=== PATIENT | male | born 1950 | race Caucasian/White ===

== ENCOUNTER 2017-05-02 11:44 | Outpatient (RCR) | payer OTHER, SELFPAY ==
[2017-04-10 13:06] LABS: International Normalized Ratio 1.9
[2017-04-10 13:31] LABS: Anion Gap 6 (5-15); BUN 25 mg/dL (7-18); BUN/Creat Ratio 17.4 RATIO (10-20); Chloride 109 mmol/L (98-107); Creatinine, Serum 1.44 mg/dL (0.70-1.30); EST Glomerular Filtration Rate 52 mL/min (>60); Est Glom Filt Rate - Afr Amer 63 mL/min (>60); Glucose 139 mg/dL (70-110); Potassium 4.9 mmol/L (3.5-5.1); Sodium Level 140 mmol/L (136-145)
[2017-05-02 12:14] LABS: International Normalized Ratio 1.6; Prothrombin Time (Protime)PT. 18.5 SECONDS (11.7-14.9)
== END 2017-05-02 12:00 | disposition home or self-care (01) ==
LOC: LAB 11:44
PROVIDERS: Family Provider Internal Medicine; PCP Internal Medicine; Visit Provider Internal Medicine Cardiovascular Disease
DX: I49.01 Ventricular fibrillation (principal); E87.6 Hypokalemia; Z98.61 Coronary angioplasty status; Z79.899 Other long term (current) drug therapy
CPT/HCPCS: 36415; 80048; 84132; 85610

== ENCOUNTER 2017-05-16 12:14 | Outpatient (RCR) | payer OTHER, SELFPAY ==
[2017-05-16 13:14] LABS: International Normalized Ratio 2.3; Prothrombin Time (Protime)PT. 24.2 SECONDS (11.7-14.9)
== END 2017-05-16 12:45 | disposition home or self-care (01) ==
LOC: LAB 12:14
PROVIDERS: Family Provider Internal Medicine; PCP Internal Medicine; Visit Provider Internal Medicine Cardiovascular Disease
DX: I49.01 Ventricular fibrillation (principal); Z51.81 Encounter for therapeutic drug level monitoring; Z79.899 Other long term (current) drug therapy; Z98.61 Coronary angioplasty status
CPT/HCPCS: 36415; 85610

== ENCOUNTER → 2017-06-27 15:31 | Outpatient (CLI) | payer OTHER, SELFPAY ==
[2017-06-27 15:51] LABS: Potassium 5.8 mmol/L (3.5-5.1)
== END ==
PROVIDERS: Family Provider Internal Medicine; PCP Internal Medicine; Visit Provider Internal Medicine
DX: E87.5 Hyperkalemia (principal)
CPT/HCPCS: 84132

== ENCOUNTER 2017-06-30 13:33 | Outpatient (RCR) | payer OTHER, SELFPAY ==
[2017-06-30 15:08] LABS: International Normalized Ratio 2.3; Prothrombin Time (Protime)PT. 25.5 SECONDS (11.7-14.9)
[2017-06-30 15:23] LABS: Potassium 5.2 mmol/L (3.5-5.1)
== END 2017-06-30 14:00 | disposition home or self-care (01) ==
LOC: LAB 13:33
PROVIDERS: Family Provider Internal Medicine; PCP Internal Medicine; Visit Provider Internal Medicine Cardiovascular Disease
DX: I49.01 Ventricular fibrillation (principal); Z51.81 Encounter for therapeutic drug level monitoring; Z79.899 Other long term (current) drug therapy; Z98.61 Coronary angioplasty status; E87.5 Hyperkalemia
CPT/HCPCS: 36415; 84132; 85610

== ENCOUNTER → 2017-07-03 13:40 | Outpatient (CLI) | payer OTHER, SELFPAY ==
[2017-07-03 15:41] LABS: Potassium 5.1 mmol/L (3.5-5.1)
== END ==
PROVIDERS: Family Provider Internal Medicine; PCP Internal Medicine; Visit Provider Internal Medicine
DX: E87.5 Hyperkalemia (principal)
CPT/HCPCS: 36415; 84132

== ENCOUNTER → 2017-07-25 08:26 | Outpatient (CLI) | payer OTHER, SELFPAY ==
--- NOTE | 2017-07-25 08:28 | RDU_ITS ---
Reason For Study: Hyperkalemia Right Renal Artery Left Renal Artery Right renal artery ostium Left renal artery ostium 90.3/16.4 127.0/21.9 RSV/EDV. PSV/EDV. Right renal artery proximal Left renal artery proximal PSV/EDV 134.0/31.0 PSV/EDV. 109.0/25.5 . Right renal artery mid 141.0/27.4 Left renal artery mid 97.6/21.0 PSV/EDV. PSV/EDV . Right renal artery distal 89.4/21.0 Left renal artery distal 115.0/22.8 PSV/EDV. PSV/EDV. Right RAR 1.9. Left RAR 1.5. Right Renal Parenchyma Left Renal Parenchyma Upper Pole Medula 31.8/7.6 PSV/EDV. Left upper pole medulla 29.3/6.7 Right upper pole medulla EDR .24 . PSV/EDV . Right upper pole medulla R.I. .76 . Left upper pole medulla EDR .23 . Upper Benjamin Cortx 29.0/7.3 PSV/EDV. Left upper pole medulla R.I. .77 . Right upper pole cortex EDR .25 . UP Cortex 28.4/7.0 PSV/EDV. Right upper pole cortex R.I. .75 . Left upper pole cortex EDR .25 . Right lower Pole medulla 25.7/5.2 Left upper pole cortex R.I. .75 . PSV/EDV . Left lower Pole medulla 27.5/7.0 Right lower pole medulla EDR .20 . PSV/EDV . Right lower pole medulla R.I. .80 . Left lower pole medulla EDR .25 . Lower Pole Cortex 21.1/5.8 PSV/EDV. Left lower pole medulla R.I. .74 . Right lower pole cortex EDR .27 . Lower Pole Cortx 24.4/6.7 PSV/EDV. Right lower pole cortex R.I. .72 . Left lower pole cortex EDR .27 . Right Renal Hilar Left lower pole cortex R.I. .72 . Right Hilar avg 42.2/7.6 PSV/EDV. Left Renal Hilar Right hilar acceleration time 59 LT Hilar avg 60.2/13.2 PSV/EDV . m/sec. Left hilar acceleration time 51 Right Renal Dimensions m/sec. Right kidney size 10.2 cm . Left Renal Dimensions Right cortical dimension 1.5 cm . Left kidney size 10.3 cm . Left cortical dimension 1.5 cm . Aorta Proximal abdominal aorta 1.9 x 1.9 cm . Distal abdominal aorta 1.9 x 1.9 cm . Proximal abdominal aorta peak systolic velocity is 74.8 cm/sec . Distal abdominal aorta peak systolic velocity is 70.2 cm/sec . Interpretation Summary Dimensions of the intra-abdominal aorta appear normal, without evidence of aneurysmal dilatation. Renal artery velocities are bilaterally normal. Acceleration times are normal bilaterally. Renal- aortic ratios are also bilaterally normal. There is no evidence of hemodynamically significant renal artery stenosis on either side. Renovascular resistance appears to be bilaterally elevated . Cortical dimensions are bilaterally normal. Kidneys appear normal in size bilaterally. Ordering Physician: Sherice Campos Referring Physician: Sherice Campos Performed By: Candice Leonard RVT
== END ==
PROVIDERS: Family Provider Internal Medicine; PCP Internal Medicine; Visit Provider Internal Medicine
DX: E87.5 Hyperkalemia (principal)
CPT/HCPCS: 93975

== ENCOUNTER 2017-09-03 11:52 | Outpatient (RCR) | payer OTHER, SELFPAY ==
[2017-08-26 12:29] LABS: Prothrombin Time (Protime)PT. 35.1 SECONDS (11.7-14.9)
[2017-08-26 12:33] LABS: International Normalized Ratio 3.5
[2017-08-26 12:40] LABS: Potassium 5.8 mmol/L (3.5-5.1)
[2017-09-03 13:12] LABS: International Normalized Ratio 2.5; Prothrombin Time (Protime)PT. 26.9 SECONDS (11.7-14.9)
[2017-09-03 13:26] LABS: Anion Gap 5 (5-15); BUN 32 mg/dL (7-18); BUN/Creat Ratio 22.4 RATIO (10-20); Calcium,Total 8.6 mg/dL (8.5-10.1); Chloride 110 mmol/L (98-107); Creatinine, Serum 1.43 mg/dL (0.70-1.30); EST Glomerular Filtration Rate 53 mL/min (>60); Est Glom Filt Rate - Afr Amer 64 mL/min (>60); Glucose 106 mg/dL (74-106); Potassium 5.3 mmol/L (3.5-5.1); Sodium Level 141 mmol/L (136-145)
== END 2017-09-03 12:00 | disposition home or self-care (01) ==
LOC: LAB 11:52
PROVIDERS: Family Provider Internal Medicine; PCP Internal Medicine; Visit Provider Internal Medicine Cardiovascular Disease
DX: I25.5 Ischemic cardiomyopathy (principal); E87.5 Hyperkalemia; Z79.01 Long term (current) use of anticoagulants; Z51.81 Encounter for therapeutic drug level monitoring
CPT/HCPCS: 36415; 80048; 84132; 85610

== ENCOUNTER → 2017-09-11 12:51 | Outpatient (CLI) | payer OTHER, SELFPAY ==
--- NOTE | 2017-09-11 12:51 | DT_ITS ---
This patient was seen during an EMR downtime September 08, 2017 - September 15, 2017. This patient may have a combination of paper and electronic documentation or all paper documentation. All documentation is viewable within the e-chart portion of [employer] for each patient visit.
[2017-09-16 04:14] LABS: Anion Gap 9 (5-15); BUN 26 mg/dL (7-18); BUN/Creat Ratio 18.6 RATIO (10-20); Calcium,Total 8.4 mg/dL (8.5-10.1); Chloride 112 mmol/L (98-107); EST Glomerular Filtration Rate 54 mL/min (>60); Est Glom Filt Rate - Afr Amer 65 mL/min (>60); Glucose 98 mg/dL (74-106); Potassium 5.1 mmol/L (3.5-5.1); Sodium Level 143 mmol/L (136-145)
[2017-09-16 04:32] LABS: International Normalized Ratio 2.4; Prothrombin Time (Protime)PT. 26.1 SECONDS (11.7-14.9)
== END ==
PROVIDERS: Family Provider Internal Medicine; PCP Internal Medicine; Visit Provider Internal Medicine Cardiovascular Disease
DX: E87.5 Hyperkalemia (principal); I25.5 Ischemic cardiomyopathy; Z79.01 Long term (current) use of anticoagulants
CPT/HCPCS: 36415; 80048; 85610

== ENCOUNTER 2017-10-13 12:26 | Outpatient (RCR) | payer OTHER, SELFPAY ==
[2017-10-13 13:36] LABS: International Normalized Ratio 2.2; Prothrombin Time (Protime)PT. 24.8 SECONDS (11.7-14.9)
== END 2017-10-13 14:00 | disposition home or self-care (01) ==
LOC: LAB 12:26
PROVIDERS: Family Provider Internal Medicine; PCP Internal Medicine; Visit Provider Internal Medicine Cardiovascular Disease
DX: I25.5 Ischemic cardiomyopathy (principal); Z79.01 Long term (current) use of anticoagulants
CPT/HCPCS: 36415; 85610

== ENCOUNTER 2017-11-20 13:01 | Outpatient (RCR) | payer OTHER, SELFPAY ==
[2017-11-20 13:37] LABS: International Normalized Ratio 2.1; Prothrombin Time (Protime)PT. 23.7 SECONDS (11.7-14.9)
== END 2017-11-20 14:00 | disposition home or self-care (01) ==
LOC: LAB 13:01
PROVIDERS: Family Provider Internal Medicine; PCP Internal Medicine; Visit Provider Internal Medicine Cardiovascular Disease
DX: I25.5 Ischemic cardiomyopathy (principal); Z79.01 Long term (current) use of anticoagulants; Z86.73 Personal history of transient ischemic attack (TIA), and cerebral infarction without residual deficits
CPT/HCPCS: 36415; 85610

== ENCOUNTER 2017-12-17 11:47 | Outpatient (RCR) | payer OTHER, SELFPAY ==
[2017-12-17 13:00] LABS: International Normalized Ratio 2.2; Prothrombin Time (Protime)PT. 24.7 SECONDS (11.7-14.9)
== END 2017-12-17 13:00 | disposition home or self-care (01) ==
LOC: LAB 11:47
PROVIDERS: Family Provider Internal Medicine; PCP Internal Medicine; Visit Provider Internal Medicine Cardiovascular Disease
DX: I25.5 Ischemic cardiomyopathy (principal); Z79.01 Long term (current) use of anticoagulants; Z86.73 Personal history of transient ischemic attack (TIA), and cerebral infarction without residual deficits
CPT/HCPCS: 36415; 85610

== ENCOUNTER 2018-01-21 12:24 | Outpatient (RCR) | payer OTHER, SELFPAY ==
[2018-01-21 13:39] LABS: International Normalized Ratio 2.2; Prothrombin Time (Protime)PT. 24.7 SECONDS (11.7-14.9)
== END 2018-01-21 14:00 | disposition home or self-care (01) ==
LOC: LAB 12:24
PROVIDERS: Family Provider Internal Medicine; PCP Internal Medicine; Referring Provider Internal Medicine Cardiovascular Disease; Visit Provider Internal Medicine Cardiovascular Disease
DX: I25.5 Ischemic cardiomyopathy (principal); Z79.01 Long term (current) use of anticoagulants; Z86.73 Personal history of transient ischemic attack (TIA), and cerebral infarction without residual deficits
CPT/HCPCS: 36415; 85610

== ENCOUNTER → 2018-05-13 12:51 | Outpatient (CLI) | payer MEDICARE, SELFPAY ==
[2018-04-08 14:21] VITALS: BMI 29.1
--- NOTE | 2018-05-13 12:52 | CDU_ITS ---
Reason For Study: Dizziness Rt. Velocities/BP Lt. Velocities/BP Prox CCA 56.9/11.7 cm/sec. Prox CCA 56.6/9.82 cm/sec. Mid CCA 84.4/22.3 cm/sec. Mid CCA 58.9/12.2 cm/sec. Dist CCA 62.1/22.4 cm/sec. Dist CCA 69.9/19.6 cm/sec. Prox ICA 156/54 cm/sec. Prox ICA 100/26.4 cm/sec. Mid ICA 92.3/30.3 cm/sec. Mid ICA 192/47 cm/sec. Dist ICA 58.6/14.4 cm/sec. Dist ICA 51/17.4 cm/sec. Rt. ICA/CCA = 2.51. Lt. ICA/CCA = 3.26. Prox ECA 150/14.9 cm/sec. Prox ECA 183/15.7 cm/sec. Lt. Vert. 67.2/21.6 cm/sec. Right Extracranial There is heterogeneous, irregular atherosclerotic plaque noted in the right common carotid artery. There is heterogeneous, irregular atherosclerotic plaque noted in the right internal carotid artery. There is heterogeneous, irregular atherosclerotic plaque noted in the right external carotid artery. Retrograde flow is noted in the right vertebral artery. Left Extracranial There is heterogeneous, irregular atherosclerotic plaque noted in the left common carotid artery. There is heterogeneous, irregular atherosclerotic plaque noted in the left internal carotid artery. There is heterogeneous, irregular atherosclerotic plaque noted in the left external carotid artery. Antegrade flow is noted in the left vertebral artery. Procedure Carotid Duplex [id number]. Image #31 is Left ECA. Exam performed in department. Interpretation Summary Moderate (50-69%) stenosis right extracranial internal carotid. Moderate (50-69%) stenosis left extracranial internal carotid. Flow within the right verterbral artery is retrograde, consistent with a subclavian steal phenomenon. Flow within the left verterbral artery is antegrade. Ordering Physician: Esteban Griffin Referring Physician: Sherice Campos M.D. Performed By: Candice Leonard RVT and Student
== END ==
PROVIDERS: Family Provider Internal Medicine; PCP Internal Medicine; Referring Provider Internal Medicine Cardiovascular Disease; Visit Provider Internal Medicine Cardiovascular Disease
DX: R42 Dizziness and giddiness (principal)
CPT/HCPCS: 93880

== ENCOUNTER → 2019-09-27 15:09 | Outpatient (CLI) | payer MEDICARE, SELFPAY ==
[2019-04-29 13:43] VITALS: BMI 30.7
[2019-09-27 16:15] LABS: Potassium 5.5 mmol/L (3.5-5.1)
== END ==
PROVIDERS: PCP Internal Medicine; Referring Provider Internal Medicine; Visit Provider Internal Medicine
DX: E87.5 Hyperkalemia (principal)
CPT/HCPCS: 84132

== ENCOUNTER → 2020-04-12 15:31 | Outpatient (CLI) | payer MEDICARE, SELFPAY ==
[2020-01-27 14:32] VITALS: BMI 30.7
[2020-04-12 17:55] LABS: Potassium 4.8 mmol/L (3.5-5.1)
== END ==
PROVIDERS: PCP Internal Medicine; Referring Provider Internal Medicine; Visit Provider Internal Medicine
DX: E87.5 Hyperkalemia (principal)
CPT/HCPCS: 36415; 84132

== ENCOUNTER 2021-06-18 14:03 | Outpatient (CLI) | payer MEDICARE, SELFPAY | END 2021-06-18 23:59 | disposition home or self-care (01) | LOC: LABSPEC 14:06 | PROVIDERS: PCP Internal Medicine; Visit Provider Internal Medicine | DX: E87.5 Hyperkalemia (principal) | CPT/HCPCS: 84132 ==

== ENCOUNTER → 2022-06-11 | Outpatient (CLI) | payer MEDICARE, SELFPAY ==
[2022-06-11 14:57] LABS: International Normalized Ratio 1.7; Prothrombin Time (Protime)PT. 19.3 SECONDS (11.7-14.9)
== END | disposition home or self-care (01) ==
LOC: LABSPEC 14:23
PROVIDERS: PCP Internal Medicine; Visit Provider Internal Medicine
DX: Z79.01 Long term (current) use of anticoagulants (principal)
CPT/HCPCS: 85610

== ENCOUNTER → 2024-02-03 | Outpatient (CLI) | payer MEDICARE, SELFPAY ==
[2024-02-03 14:30] LABS: Absolute Lymphocyte Count 0.78 X10^3/uL (0.83-4.51); Absolute Neutrophil Count 3.7 X10^3/uL (2.0-7.7); Basophil# 0.05 X10^3/uL; Eosinophil# 0.11 X10^3/uL; Eosinophils% 2.1 % (0-5); Hematocrit 30.4 % (40-54); Hemoglobin 9.2 g/dL (13.0-16.5); Lymphocyte # 0.78 X10^3/ul (0.83-4.51); Lymphocyte % 15.1 % (19-41); Mean Corp Hgb Conc 30.3 g/dL (32-36); Mean Corpuscular Hgb 26.4 pg (27.0-32.0); Mean Corpuscular Volume 87.1 fL (80-94); Mean Platelet Vol. 8.6 fl (6.2-12.0); Monocyte# 0.49 X10^3/uL; Monocyte% 9.5 % (0-10); NRBC Flagged by Analyzer 0 % (0-5); Neutrophil # 3.72 X10^3/uL (2.7-7.7); Neutrophil % 71.9 % (47-70); Platelet Count 244 K/mm3 (150-450); RBC Distribution Width CV 16.5 % (11.6-14.6); RBC Distribution Width SD 52.7 fl (35.1-43.9); Red Blood Count 3.49 M/mm3 (4.6-6.2); White Blood Count 5.2 K/mm3 (4.4-11.0)
[2024-02-03 14:58] LABS: BNP,B-Type NATRIURETIC PEPTIDE 2876.3 pg/mL (0-100)
[2024-02-03 15:12] LABS: AST(SGOT) 24 U/L (15-37); Alanine Aminotransfer ALT/SGPT 32 U/L (16-61); Albumin, Serum 3.5 g/dL (3.2-5.0); Alkaline Phosphatase 99 U/L (45-117); Anion Gap 7 (5-15); BUN 23 mg/dL (7-18); BUN/Creat Ratio 16.3 RATIO (10-20); Calcium,Total 9.1 mg/dL (8.5-10.1); Chloride 109 mmol/L (98-107); Cholesterol 104 mg/dL (200); Creatinine, Serum 1.41 mg/dL (0.70-1.30); EST Glomerular Filtration Rate 53 mL/min (>60); Est Glom Filt Rate - Afr Amer 64 mL/min (>60); Globulin 3.5 g/dL (2.2-4.2); Glucose 121 mg/dL (74-106); High Density Lipoprotein 40 mg/dL; Potassium 4.7 mmol/L (3.5-5.1); Sodium Level 138 mmol/L (136-145); Triglycerides 78 mg/dL; Very Low Density Lipoprotein 16 mg/dL (5-40)
== END | disposition home or self-care (01) ==
LOC: LAB 13:55
PROVIDERS: PCP Internal Medicine; Referring Provider Nurse Practitioner Gerontology; Visit Provider Nurse Practitioner Gerontology
DX: R53.83 Other fatigue (principal); R06.09 Other forms of dyspnea; I25.10 Atherosclerotic heart disease of native coronary artery without angina pectoris
CPT/HCPCS: 36415; 80053; 80061; 83880; 84443; 85025

== ENCOUNTER → 2024-02-13 | Outpatient (CLI) | payer MEDICARE, SELFPAY ==
[2024-02-13 11:36] LABS: BNP,B-Type NATRIURETIC PEPTIDE 2926.9 pg/mL (0-100)
[2024-02-13 11:38] LABS: Anion Gap 6 (5-15); BUN 30 mg/dL (7-18); BUN/Creat Ratio 19.2 RATIO (10-20); Calcium,Total 9.2 mg/dL (8.5-10.1); Chloride 103 mmol/L (98-107); Creatinine, Serum 1.56 mg/dL (0.70-1.30); EST Glomerular Filtration Rate 47 mL/min (>60); Est Glom Filt Rate - Afr Amer 57 mL/min (>60); Glucose 137 mg/dL (74-106); Potassium 4.1 mmol/L (3.5-5.1); Sodium Level 136 mmol/L (136-145)
== END | disposition home or self-care (01) ==
PROVIDERS: PCP Internal Medicine; Referring Provider Nurse Practitioner Gerontology; Visit Provider Nurse Practitioner Gerontology
DX: I25.5 Ischemic cardiomyopathy (principal); R42 Dizziness and giddiness; I77.9 Disorder of arteries and arterioles, unspecified; R06.09 Other forms of dyspnea
CPT/HCPCS: 36415; 80048; 83880; 93880

== ENCOUNTER → 2024-02-24 | Outpatient (CLI) | payer MEDICARE, SELFPAY ==
--- NOTE | 2024-02-24 13:53 | ECHOCS_ITS ---
Version 2 Reason For Study: ISCHEMIC CARDIOMYOPATHY Procedure This was a 2D Doppler, Color Flow transthoracic echocardiogram. Contrast injection was performed. Exam performed in department. Left Ventricle Normal LV size. The estimated ejection fraction is 15 %. There is severe global hypokinesis of the left ventricle. Right Ventricle Normal RV size. ICD or pacer leads identified within the right ventricle. Normal systolic function. Atria The left atrium is mildly enlarged. The right atrium is moderately enlarged. Mitral Valve Normal mitral valve. Tricuspid Valve Normal tricuspid valve. Mild to moderate (1-2+) tricuspid valve insufficiency. Pulmonary artery systolic pressure is 50 mmHg. Aortic Valve Trisinus/trileaflet aortic valve. Pulmonic Valve Normal pulmonic valve. Great Vessels Normal aortic root. The pulmonary artery is normal size. Inferior vena cava collapse with respiration. Pericardium/Pleural No pericardial effusion. Medication 22 gauge I.V. with prn adaptor inserted into left arm. Diluted definity 3.5ml given slow IV push to enhance endocardial definition. MMode/2D Measurements & Calculations LVIDd: 5.9 cm IVSd: 1.0 cm LVOT diam: 2.0 cm LVIDs: 5.4 cm LVPWd: 1.0 cm RVDd: 4.0 cm FS: 9.3 % LVOT area: 3.3 cm2 asc Aorta Diam: 3.7 cm LAV(MOD-bp): 61.6 ml LVAd ap4: 53.6 cm2 LAV(MOD-bp) Indexed: 33.8 ml/m2 LVLd ap4: 10.1 cm LAV(MOD-sp2): 58.8 ml EDV(MOD-sp4): 243.5 ml LAV(MOD-sp4): 64.2 ml EDV(sp4-el): 240.8 ml LVAs ap4: 47.5 cm2 LVLs ap4: 9.5 cm ESV(MOD-sp4): 200.0 ml ESV(sp4-el): 200.4 ml EF(MOD-sp4): 17.8 % EF(sp4-el): 16.8 % LVAd ap2: 47.9 cm2 SV(MOD-sp4): 43.5 ml SV(MOD-sp2): 28.3 ml LVLd ap2: 9.9 cm SI(MOD-sp4): 23.8 ml/m2 SI(MOD-sp2): 15.5 ml/m2 EDV(MOD-sp2): 187.0 ml EDV(sp2-el): 196.2 ml LVAs ap2: 42.4 cm2 LVLs ap2: 9.3 cm ESV(MOD-sp2): 158.7 ml ESV(sp2-el): 163.6 ml EF(MOD-sp2): 15.1 % SV(sp4-el): 40.4 ml Ao sinus diam: 3.[address] Junction: 2.7 cm LA dimension(2D): 4.4 cm LA A4 area: 21.5 cm2 RA A4 area: 27.9 cm2 TAPSE: 1.2 cm Time Measurements MV dec time: 0.13 sec Doppler Measurements & Calculations MV E max naman: 113.7 cm/sec Lat Peak E' Naman: 11.2 cm/sec Med Peak E' Naman: 3.6 cm/sec MV A max naman: 98.3 cm/sec E/E' lat: 10.2 E/E' med: 31.6 MV E/A: 1.2 MV dec slope: 900.1 cm/sec2 Ao V2 max: 123.6 cm/sec LV V1 max: 86.5 cm/sec Ao max P.1 mmHg LV V1 max P.0 mmHg Ao V2 mean: 90.2 cm/sec LV V1 mean P.5 mmHg Ao mean P.7 mmHg LV V1 mean: 56.3 cm/sec Ao V2 VTI: 27.0 cm LV V1 VTI: 16.4 cm AV (velocity ratio): 0.61 AGUSTIN(I,D): 2.0 cm2 AGUSTIN(V,D): 2.3 cm2 SV(LVOT): 53.9 ml PA V2 max: 84.5 cm/sec TR max naman: 336.2 cm/sec TR max P.2 mmHg ECHO/Echo Complete W/ Contrast Interpretation Summary Normal LV size. The estimated ejection fraction is 15 %. There is severe global hypokinesis of the left ventricle. The left atrium is mildly enlarged. The right atrium is moderately enlarged. ICD or pacer leads identified within the right ventricle. Contrast injection was performed. Compared to previous study, the left ventricu lar systolic function has worsened.. Ordering Physician: Meme Garcia Referring Physician: Sherice Campos M.D. Performed By: Lilibeth Ortega RDCS
== END | disposition home or self-care (01) ==
LOC: CVS 13:52
PROVIDERS: PCP Internal Medicine; Referring Provider Nurse Practitioner Gerontology; Visit Provider Nurse Practitioner Gerontology
DX: I25.5 Ischemic cardiomyopathy (principal)
CPT/HCPCS: 93306; Q9957; A4216; C8929

== ENCOUNTER → 2024-03-10 | Outpatient (CLI) | payer MEDICARE, SELFPAY ==
[2024-03-10 15:10] LABS: Anion Gap 4 (5-15); BUN 33 mg/dL (7-18); BUN/Creat Ratio 17.4 RATIO (10-20); Calcium,Total 8.9 mg/dL (8.5-10.1); Chloride 105 mmol/L (98-107); EST Glomerular Filtration Rate 37 mL/min (>60); Est Glom Filt Rate - Afr Amer 45 mL/min (>60); Glucose 162 mg/dL (74-106); Potassium 4.6 mmol/L (3.5-5.1); Sodium Level 135 mmol/L (136-145)
== END | disposition home or self-care (01) ==
LOC: LAB 13:50
PROVIDERS: PCP Internal Medicine; Referring Provider Nurse Practitioner Gerontology; Visit Provider Nurse Practitioner Gerontology
DX: I25.5 Ischemic cardiomyopathy (principal)
CPT/HCPCS: 36415; 80048

== ENCOUNTER → 2024-03-19 | Outpatient (CLI) | payer MEDICARE, SELFPAY ==
--- NOTE | 2024-03-19 12:21 | CT_ITS ---
INDICATION: L ICA stenosis -- IV hydration EXAMINATION: CTA HEAD - CTA Head and Neck W/ Contrast Injection (and W/O Contrast Images if performed) TECHNIQUE: [place]/head CT angiogram protocol was performed following IV contrast. 3D reconstructions were reviewed. A radiation dose optimization technique was used for this scan. IV Contrast dosage and agent: 1 mL [id number]-370 Radiation Dose (provided by facility) CTDIvol (33.32 ) mGy, DLP ( 1449.86) mGy-cm COMPARISON: MRI examination of 06/10/2049 FINDINGS: CTA [place]: PETROUS AND CAVERNOUS CAROTID ARTERIES: Extensive vascular calcifications involving the cavernous carotid vessels bilaterally, to lesser extent the petrous carotid vessels however no stenosis occlusion or aneurysmal dilatation. No intraluminal filling defects. SUPRACLINOID CAROTID ARTERIES: Moderate calcification involving the supraclinoid carotid vessels without stenosis or occlusion. No aneurysm. No filling defects. ANTERIOR CEREBRAL AND A- COMM: Codominant A1 segments, anterior communicating artery is patent and a A2 segments are patent bilaterally. MIDDLE CEREBRAL ARTERIES: Normal appearance the proximal and distal segments of the middle cerebral circulation bilaterally. Normal appearance of the M4 cortical distribution bilaterally. INTRACRANIAL VERTEBRAL ARTERIES AND BASILAR ARTERY: There is a dominant LEFT vertebral artery. Small caliber but patent RIGHT vertebral artery and basilar artery is patent throughout its full course to the level of bifurcation POSTERIOR CEREBRAL ARTERIES: Normal appearance proximal distal segments of posterior cerebral circulation bilaterally. DURAL SINUSES: Normal, no filling defects noted CT HEAD: The cerebral parenchyma, ventricular system and gyral pattern abnormal configuration. Mild involutional changes and chronic microvascular deep white matter disease is a area of remote infarct involving the RIGHT cerebellar hemisphere the previously defined infarct in the vermis is not clearly demonstrated on current exam. No mass, hemorrhage, or acute territorial infarct noted. No areas of abnormal contrast enhancement CTA Neck: TECHNIQUE: CTA examination of the neck obtained with standard protocol including axial postcontrast imaging with additional planar and three-dimensional reconstructions. Aortic arch: [Normal appearance of the aortic arch and origin the great vessels.] Scattered calcifications at the origin the great vessels. No stenosis noted. Right carotid system: Moderate to extensive calcification at the carotid bifurcation and carotid bulb however no hemodynamically significant stenosis of the CCA and ICA. Findings however consistent with a mild (less than 50%) narrowing. There is moderate narrowing of the RIGHT ECA. Left carotid system: There is bulky soft or calcified plaque at the LEFT carotid bifurcation and carotid bulb however there is a short segment near complete occlusion of the LEFT carotid bulb (greater than 95%). The remaining LEFT ICA has normal appearance the level of the skull base. Normal appearance of the ECA. Vertebral arteries: The LEFT vertebral artery is widely patent through its full cervical course. There is faint contrast opacification of the V1 segment of the RIGHT vertebral artery, proximal soft and calcified plaque at the origin of the RIGHT vertebral artery is noted consistent with high-grade stenosis. Contrast does not extend into the proximal and mid V2 segment of the RIGHT vertebral artery. There is a faint contrast noted within the distal T1 and V3 segment of the LEFT vertebral artery. Airway and soft tissues of the neck: There is normal appearance of the musculofascial planes of suprahyoid and infrahyoid neck. Normal appearance of the visualized airway. Normal appearance the visualized thyroid without masses or nodules noted. Cervical spine: Normal appearance of bony elements of the cervical spine. No focal stenosis or occlusion involving the cervical spinal canal. CT/CTA Head AND Neck W/ Contrast IMPRESSION: 1. Diffuse intracranial vascular calcifications without hemodynamically significant stenosis, filling defect, or aneurysm. 2. No CTA evidence of LVO. 3. Bulky calcification at the RIGHT carotid bulb with mild (less than 50%) narrowing. No hemodynamically significant stenosis of the RIGHT cervical carotid. 4. Short segment high-grade stenosis (greater than 95%) of the LEFT carotid bulb. Faint channel contrast is noted extending into the stenotic segment. 5. High-grade stenosis of the proximal RIGHT vertebral artery with only faint contrast extending into the P1 segment. There is collateral reconstitution of the mid to distal RIGHT vertebral artery. LEFT vertebral artery is incidentally dominant. 6. 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 Mild involutional change and chronic deep white matter disease. 7. No mass, hemorrhage, or acute territorial infarct. Electronically Signed: Gabriel Thibodeaux MD at 16:08 EST ,
[2024-03-19 13:02] LABS: CREATININE FINGERSTICK 1.5 mg/dL (0.70-1.30)
[2024-03-19] MEDS: 0.9% Normal Saline (500mL Bag) 500 ML IV (13:10)
[2024-03-19 13:13] VITALS: BP 135/78; PULSE 87; RESP 16; TEMP 36.2; O2SAT 97; BMI 27.6
[2024-03-19 14:10] VITALS: BP 132/73; PULSE 82; RESP 16; O2SAT 97
== END | disposition home or self-care (01) ==
LOC: CT 12:21
PROVIDERS: PCP Internal Medicine; Referring Provider Physician Assistant; Visit Provider Physician Assistant
DX: I77.9 Disorder of arteries and arterioles, unspecified (principal)
CPT/HCPCS: 70496; 70498; Q9967

== ENCOUNTER → 2024-04-14 | Outpatient (CLI) | payer MEDICARE, SELFPAY ==
[2024-04-14 13:28] LABS: Anion Gap 3 (5-15); BUN 30 mg/dL (7-18); BUN/Creat Ratio 14.7 RATIO (10-20); Calcium,Total 9.2 mg/dL (8.5-10.1); Chloride 106 mmol/L (98-107); Creatinine, Serum 2.04 mg/dL (0.70-1.30); EST Glomerular Filtration Rate 34 mL/min (>60); Est Glom Filt Rate - Afr Amer 42 mL/min (>60); Glucose 154 mg/dL (74-106); Potassium 4.5 mmol/L (3.5-5.1); Sodium Level 136 mmol/L (136-145)
== END | disposition home or self-care (01) ==
LOC: LAB 12:40
PROVIDERS: PCP Internal Medicine; Referring Provider Physician Assistant Medical; Visit Provider Physician Assistant Medical
DX: E11.9 Type 2 diabetes mellitus without complications (principal); N28.9 Disorder of kidney and ureter, unspecified; Z51.81 Encounter for therapeutic drug level monitoring; Z79.899 Other long term (current) drug therapy
CPT/HCPCS: 36415; 80048

== ENCOUNTER → 2024-05-03 | Outpatient (CLI) | payer MEDICARE, SELFPAY ==
[2024-05-03 15:56] LABS: Anion Gap 5 (5-15); BUN 36 mg/dL (7-18); BUN/Creat Ratio 15.5 RATIO (10-20); Calcium,Total 9.4 mg/dL (8.5-10.1); Chloride 105 mmol/L (98-107); Creatinine, Serum 2.32 mg/dL (0.70-1.30); EST Glomerular Filtration Rate 30 mL/min (>60); Est Glom Filt Rate - Afr Amer 36 mL/min (>60); Glucose 122 mg/dL (74-106); Potassium 5.1 mmol/L (3.5-5.1); Sodium Level 137 mmol/L (136-145)
== END | disposition home or self-care (01) ==
PROVIDERS: PCP Internal Medicine; Referring Provider Physician Assistant Medical; Visit Provider Physician Assistant Medical
DX: N28.9 Disorder of kidney and ureter, unspecified (principal)
CPT/HCPCS: 36415; 80048

== ENCOUNTER 2024-05-11 10:06 | Inpatient (IN) | payer MEDICARE, SELFPAY ==
[2024-05-11 10:07] VITALS: BP 140/86; PULSE 92; RESP 16; TEMP 36.7; O2SAT 99; BMI 31.2
--- NOTE | 2024-05-11 10:51 | VDLE_ITS ---
Reason For Study: BLE Swelling RIGHT LEFT GSV is normal. GSV is normal. CFV is compressible, spontaneous, competent CFV is compressible, spontaneous, competent, and demonstrates pulsatile venous flow. and demonstrates pulsatile venous flow. FV is compressible, spontaneous, competent FV is compressible, spontaneous, competent and demonstrates pulsatile venous flow. and demonstrates pulsatile venous flow. POP V is compressible, spontaneous, competent POP V is compressible, spontaneous, competent and demonstrates pulsatile venous flow. and demonstrates pulsatile venous flow. T/P Trunk is compressible. T/P Trunk is compressible. PTV is compressible. PTV is compressible. RT PerV is compressible. LT PerV is compressible. Procedure This is a venous duplex using B-mode, color flow and spectral Doppler. Exam performed portable in ED. The exam was diagnostic. A preliminary report was called and/or faxed to Dr. [place]. VL/Venous Duplex US - Nataly Extrem Interpretation Summary Deep veins of the lower extremities are bilaterally patent and compressible seg mentally. There is no evidence of deep vein thrombosis on either side. Valvular competence appears in tact within the proximal deep venous systems bilaterally. The great saphenous veins appear bila terally patent and compressible segmentally. Pulsatile flow is noted in the deep venous system nataly aterally, which may be indicative of elevated central venous pressure (i.e. congestive heart failur e, pulmonary hypertension, etc.). Clinical correlation is advised. Ordering Physician: Rolando Hunt Referring Physician: Sherice Campos Performed By: Corey Harding RVT
--- NOTE | 2024-05-11 10:51 | CT_ITS ---
EXAM: CT Abdomen and Pelvis With Intravenous Contrast CLINICAL INDICATION: TECHNIQUE: Axial computed tomography images of the abdomen and pelvis with intravenous contrast. This CT exam was performed using one or more of the following dose reduction techniques: automated exposure control, adjustment of the mA and/or kV according to patient size, and/or use of iterative reconstruction technique. COMPARISON: No relevant prior studies available. FINDINGS: LUNG BASES: See below. PLEURAL SPACE: Bilateral pleural effusions with compressive atelectasis. ABDOMEN: LIVER: Fatty liver with possible cirrhosis. Clinical correlation is recommended. GALLBLADDER AND BILE DUCTS: Unremarkable. No calcified stones. No ductal dilation. PANCREAS: Unremarkable. No mass. No ductal dilation. SPLEEN: Unremarkable. No splenomegaly. ADRENALS: Unremarkable. No mass. KIDNEYS AND URETERS: Unremarkable. No solid mass. No hydronephrosis. STOMACH AND BOWEL: Unremarkable. No obstruction. No mucosal thickening. PELVIS: APPENDIX: No findings to suggest acute appendicitis. BLADDER: Unremarkable. No mass. REPRODUCTIVE: Unremarkable as visualized. ABDOMEN and PELVIS: INTRAPERITONEAL SPACE: Ascites. No free air. BONES/JOINTS: No acute fracture. No dislocation. SOFT TISSUES: Bilateral inguinal hernias, larger on the left. VASCULATURE: Scattered calcified atherosclerotic disease of aorta. No abdominal aortic aneurysm. LYMPH NODES: Unremarkable. No enlarged lymph nodes. CT/Abdomen/Pelvis W IV Cont ONLY IMPRESSION: 1. Ascites. 2. Fatty liver with possible cirrhosis. Clinical correlation is recommended. 3. Bilateral inguinal hernias, larger on the left. 4. Bilateral pleural effusions with compressive atelectasis. Reading Location: [facility]
--- NOTE | 2024-05-11 10:51 | RAD_ITS ---
EXAM: XR Chest, 1 View CLINICAL INDICATION: TECHNIQUE: Frontal view of the chest. COMPARISON: No relevant prior studies available. FINDINGS: LUNGS AND PLEURAL SPACES: Unremarkable. No consolidation. No pneumothorax. HEART: Cardiomegaly without overt failure. MEDIASTINUM: Unremarkable. Normal mediastinal contour. BONES/JOINTS: Unremarkable. No acute fracture. TUBES, LINES AND DEVICES: Left-sided cardiac pacemaker. RAD/Chest 1 View (Portable) IMPRESSION: Cardiomegaly without overt failure. Reading Location: [facility]
--- NOTE | 2024-05-11 10:53 | EDS_ITS ---
HPI History of Present Illness Chief Complaint: Edema Detail of Chief Complaint: Edema Informant: patient Narrative Narrative: Patient presents to the emergency department with lower extremity and scrotal edema for over 2 weeks. Patient apparently had been started on Lasix by his primary care physician and was taken off during because his kidney function worsened. He was then started on spironolactone. He has gained over 10 pounds. He denies significant shortness of breath. He does have history of CHF and history of an ejection fraction of 15%. He has history of a cardiac stent and history of defibrillator. Patient has been having decreased urine output. He is on Coumadin for history of coronary artery disease and prior stroke. Last INR was 2.0 about 2 weeks ago per patient. Patient has been compliant with his Coumadin. 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 HLD (hyperlipidemia) Cardiomyopathy, ischemic Abnormal serum enzyme level Dehydration Vertigo CAD (coronary artery disease) ARF (acute renal failure) Home Medications ?Medication ?Instructions ?Recorded ?Last Taken ?Type atorvastatin 80 mg tablet 80 mg PO QHS #30 tabs Unknown Rx clopidogrel 75 mg tablet 75 mg PO DAILY #30 tabs 06/06 Unknown Rx metoprolol succinate 25 mg 25 mg PO DAILY #30 tabs 08/25/14 Rx tablet,extended release 24 hr 25 mg multivitamin with folic acid 400 1 tab PO DAILYCM #0 t abs 06/24/14 Unknown Rx mcg tablet cholecalciferol (vitamin D3) 50 4,000 unit PO QDAY Unknown History mcg (2,000 unit) tablet metformin 850 mg tablet 850 mg PO BIDCM 01/27/20 Unk nown History warfarin 2 mg tablet See Rx Instructions .Route . COMPLEX 07/19/20 Unknown History warfarin 6 mg tablet 6 mg PO 5XW 07/19/20 Unknown History levothyroxine 25 mcg tablet 50 mcg PO QDAY 09/19/21 Un known History amlodipine 2.5 mg tablet 2.5 mg PO DAILY #90 TABLETS 01/28/24 Unknown Rx furosemide 40 mg tablet (Lasix) 40 mg PO QDAY #90 tabs 02/19/24 Unknown Rx Held on 05/03/24. 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 (~05/03/14) Presence of automatic cardioverter/defibrillator (AICD) Social History Smoking Status: Current every day smoker tobacco type: cigarettes Tobacco: How many years used: 30 how long ago did patient quit smokin alcohol intake: never substance use type: does not use caffeine: No ROS ROS ED Review of Systems ROS Unobtainable: other Constitutional Constitutional ED: Reports lethargy; Denies chills, fever(s), sweats or weight loss Eyes Eyes: Denies blurry vision, change in vision or diplopia ENT ENT ED: Denies rhinorrhea or sore throat Cardiovascular Cardiovascular: Denies chest pain, orthopnea or racing heartbeat Respiratory/Chest Respiratory/Chest: Denies cough, dyspnea, dyspnea on exertion, orthopnea or sputum Gastrointestinal Gastrointestinal: Denies abdominal pain, diarrhea, nausea or vomiting Genitourinary Genitourinary ED: Reports other Details: Scrotal edema, decreased urine output ; Denies dysuria, hematuria or urinary frequency Musculoskeletal Musculoskeletal: Reports other Details: Bilateral leg edema ; Denies arthralgias, back pain, myalgias or neck pain Integumentary Denies abscess, Abrasions or rash Neurologic Neurologic: Denies headache(s) or weakness Psychiatric Psychiatric: Denies anxiety, depression or suicidal thoughts Endocrine Endocrinology: Denies polydipsia, polyphagia or polyuria Hematologic/Lymphatic Hematologic/Lymphatic: Denies easy bleeding, easy bruising or lymphadenopathy Allergic/Immunologic Allergic/Immunologic ED: Denies mouth swelling, tongue swelling or urticaria EXAM Physical Exam Const Vital Signs: 05/11/24 10:07 05/11/24 11:23 05/11/24 12:07 Temperature 98.0 F Temperature Source Oral Pulse Rate 92 85 Respiratory Rate 16 16 Respiratory Pattern Normal Blood Pressure 140/86 H Blood Pressure Mean 104 Pulse Ox 99 95 Oxygen Delivery Method Room Air Room Air Positive well nourished and well developed General Appearance ED: well developed and NAD HEENT Reports TM's clear and moist mucous membranes normocephalic and atraumatic; Negative for trauma or tenderness Tympanic Membrane ED: Yes TM's clear Eyes PERRL and EOMs intact bilaterally General Eye ED: Negative for pale conjunctiva or scleral icterus Neck no lymphadenopathy, supple and no JVD General: Negative for tenderness Chest Wall inspection of chest normal and palpation of chest normal Chest: Negative for tenderness Resp normal respiratory effort and clear to auscultation bilaterally Effort and Inspection: Negative for respiratory distress or pain with movement Auscultation: Negative for rhonchi, wheezes or diminished lung sounds Cardio regular rate, regular rhythm, S1 normal heart sound, S2 normal heart sound and no murmurs Peripheral Pulses: pulses 2+ throughout GI normal to inspection, nondistended, normoactive bowel sounds, soft to palpation, non-tender, non-distended and no masses Narrative: Significant diffuse scrotal edema. There is some fullness into the leg left inguinal canal. No cellulitic changes. No signs of infection. Back/Spine no CVA tenderness and no thoracic nor lumbar tenderness Extremity normal to inspection Extremity Narrative: +3 edema from below the knee to the feet bilateral. General Extremety ED: Yes edema General Extremity: edema Neuro oriented x3, CN's II-XII intact bilaterally, no sensory deficits noted and gait normal Sensorium / Orientation: awake, alert, oriented to person, oriented to place and oriented to time Motor Exam: strength 5/5 throughout and strength abnormal Psych mental status grossly normal Skin no rashes or lesions noted and no wounds MDM MDM MDM Narrative Medical decision making narrative: Patient presents with lower extremity edema as well as scrotal edema. He is been on Lasix as an outpatient and was taken off and started on spironolactone. He has gained over 10 pounds of weight. Some mild exertional dyspnea. History of CHF with ejection fraction of 15%. IV line established. I did obtain venous Dopplers of both lower extremities that were negative for DVT. CBC with differential obtained showed white count 5.1 with hemoglobin 10 and platelet count of 200. Chemistries unremarkable. INR was 3.1. BUN 34 and creatinine 1.89. 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 1 view chest x-ray obtained interpreted as cardiomegaly without evidence of overt failure. I did obtain a CT scan of the abdomen pelvis with IV contrast to rule out thrombosis of the inferior vena cava given all the edema in his pelvis and lower extremities. This essentially was unremarkable. It was noted that he had bilateral pleural effusions. Patient was ordered Lasix 80 mg IV. Will discuss case with hospitalist to evaluate patient for admission for diagnosis CHF. I did do a bladder scan as well he had 200 cc of urine in the bladder. Patient may also warrant evaluation by urology given the significant scrotal edema and the fullness in the left inguinal region. Lab Data Attestation: I reviewed the patient's lab results. Labs: Laboratory Results - last 24 hr 05/11/24 11:20 WBC 5.1 RBC 4.06 L Hgb 10.0 L Hct 33.0 L MCV 81.3 MCH 24.6 L MCHC 30.3 L RDW Std Deviation 54.6 H RDW Coeff of Ambrosio 18.4 H Plt Count 200 MPV 8.7 Immature Gran % (Auto) 0.400 Neut % (Auto) 67.4 Lymph % (Auto) 16.7 L [place] % (Auto) 13.0 H Eos % (Auto) 1.9 Baso % (Auto) 0.6 Absolute Neuts (auto) 3.5 Absolute Lymphs (auto) 0.86 Nucleated RBC % 0 PT 32.4 H INR 3.1 Sodium 138 Potassium 4.7 Chloride 107 Carbon Dioxide 23.0 Anion Gap 7 BUN 34 H Creatinine 1.89 H Estim Creat Clear Calc 35.48 Est GFR (MDRD) Af Amer 45 L Est GFR (MDRD) Non-Af 37 L BUN/Creatinine Ratio 18.0 Glucose 129 H Calcium 9.0 Total Bilirubin 0.60 AST 35 ALT 39 Alkaline Phosphatase 122 H B-Natriuretic Peptide 3559.4 H Total Protein 7.2 Albumin 3.4 Globulin 3.8 Albumin/Globulin Ratio 0.9 Radiography Diagnostic Testing: Clinical Impression(s) from Imaging Studies Abdomen/Pelvis CT 05/11/24 10:51 IMPRESSION: 1. Ascites. 2. Fatty liver with possible cirrhosis. Clinical correlation is recommended. 3. Bilateral inguinal hernias, larger on the left. 4. Bilateral pleural effusions with compressive atelectasis. Reading Location: [facility] [place] Chest X-Ray 05/11/24 10:51 IMPRESSION: Cardiomegaly without overt failure. Reading Location: [facility] [place] Discharge Plan Triage Chief Complaint: Edema ED Provider: Rolando Hunt Dx/Rx/DC Orders Clinical Impression: CHF (congestive heart failure), Leg edema, Acute renal insufficiency Prescriptions: No Action cholecalciferol (vitamin D3) 50 mcg (2,000 unit) tablet 4,000 unit PO QDAY levothyroxine 25 mcg tablet 50 mcg PO QDAY warfarin 2 mg tablet See Rx Instructions .ROUTE .COMPLEX Dose Instruction: TAKE 2 TABLETS (4 MG) ON TUESDAYS AND WEDNESDAYS; TAKE 6 MG TABLET ON ALL OTHER DAYS OF THE WEEK Rx Instructions: TAKE 2 TABLETS (4 MG) ON TUESDAYS AND WEDNESDAYS; TAKE 6 MG TABLET ON ALL OTHER DAYS OF THE WEEK Managed by Dr. Campos warfarin 6 mg tablet 6 mg PO 5XW Protocol: Dose Management Protocol Text: Patient Instructed to take: warfarin 2 mg (2 Tabs) on , warfarin 6 mg (1 Tab) on , , , , SA Rx Instructions: Managed by Dr. Campos multivitamin with folic acid 1 TABLET tablet 1 tab PO DAILYCM Qty: 0 0RF Patient Comments: vitamin atorvastatin 80 MG tablet 80 mg PO QHS Qty: 30 0RF Patient Comments: lowers cholesterol clopidogrel 75 MG tablet 75 mg PO DAILY Qty: 30 0RF Patient Comments: blood thinner metoprolol succinate 25 MG tablet 25 mg PO DAILY Qty: 30 0RF Patient Comments: lowers blood pressure metformin 850 mg tablet 850 mg PO BIDCM Patient Comments: diabetes medication amlodipine 2.5 mg tablet 2.5 mg PO DAILY Qty: 90 3RF furosemide [Lasix] 40 mg tablet 40 mg PO QDAY Qty: 90 3RF spironolactone 25 mg tablet 25 mg PO QDAY Qty: 90 3RF Primary Care Provider: Sherice Campos Referrals: Sherice Campos DO [Primary Care Provider] - Print Language: Frisian Disposition Disposition: Acute Care Hospital [facility]
[2024-05-11 11:31] LABS: Absolute Lymphocyte Count 0.86 X10^3/uL (0.83-4.51); Absolute Neutrophil Count 3.5 X10^3/uL (2.0-7.7); Basophil# 0.03 X10^3/uL; Basophil% 0.6 % (0-1); Eosinophils% 1.9 % (0-5); Lymphocyte # 0.86 X10^3/ul (0.83-4.51); Lymphocyte % 16.7 % (19-41); Mean Corp Hgb Conc 30.3 g/dL (32-36); Mean Corpuscular Hgb 24.6 pg (27.0-32.0); Mean Corpuscular Volume 81.3 fL (80-94); Mean Platelet Vol. 8.7 fl (6.2-12.0); Monocyte# 0.67 X10^3/uL; NRBC Flagged by Analyzer 0 % (0-5); Neutrophil # 3.46 X10^3/uL (2.7-7.7); Neutrophil % 67.4 % (47-70); Platelet Count 200 K/mm3 (150-450); RBC Distribution Width CV 18.4 % (11.6-14.6); RBC Distribution Width SD 54.6 fl (35.1-43.9); Red Blood Count 4.06 M/mm3 (4.6-6.2); White Blood Count 5.1 K/mm3 (4.4-11.0)
[2024-05-11 11:54] LABS: BNP,B-Type NATRIURETIC PEPTIDE 3559.4 pg/mL (0-100)
[2024-05-11 11:55] LABS: International Normalized Ratio 3.1; Prothrombin Time (Protime)PT. 32.4 SECONDS (11.7-14.9)
[2024-05-11 11:56] LABS: ALB/GLOB Ratio 0.9 RATIO (0.9-2.4); AST(SGOT) 35 U/L (15-37); Alanine Aminotransfer ALT/SGPT 39 U/L (16-61); Albumin, Serum 3.4 g/dL (3.2-5.0); Alkaline Phosphatase 122 U/L (45-117); Anion Gap 7 (5-15); BUN 34 mg/dL (7-18); Chloride 107 mmol/L (98-107); Creatinine, Serum 1.89 mg/dL (0.70-1.30); EST Glomerular Filtration Rate 37 mL/min (>60); Est Glom Filt Rate - Afr Amer 45 mL/min (>60); Estimated Creatinine Clearance 35.48 ml/min; Globulin 3.8 g/dL (2.2-4.2); Glucose 129 mg/dL (74-106); Potassium 4.7 mmol/L (3.5-5.1); Protein, Total 7.2 g/dL (6.4-8.2); Sodium Level 138 mmol/L (136-145)
[2024-05-11 12:07] VITALS: PULSE 85; RESP 16; O2SAT 95
[2024-05-11 13:12] LABS: Mucous, Urine 0 SEEN /hpf (<or=2+)
[2024-05-11 13:27] LABS: Color, Urine Yellow (Yellow); Glucose, Dipstick Normal (Normal); Ketone-Dipstick 5 mg/dl (Negative); Leukocyte Esterase-Dipstick Negative /ul (Negative); Nitrite-Dipstick Negative (Negative); Occult Blood-Urine 50 /ul (Negative); Protein-Dipstick 100 mg/dl (Negative); Urine Bilirubin Dipstick Negative (Negative); Urine Clarity Clear (Clear); Urine Urobilinogen Normal (Normal)
[2024-05-11 13:30] VITALS: BP 140/86; PULSE 85; RESP 16; TEMP 36.7; O2SAT 95
[2024-05-11 13:35] LABS: Bacteria 1+ /hpf (None Seen); Red Blood Cells-Urine 0-5 SEEN /hpf (0-5); Squamous Epithelial Cells - UA 0-5 SEEN /hpf (0-5); White Blood Cells 0-5 SEEN /hpf (0-5)
[2024-05-11] MEDS: Furosemide 100 MG/10 ML Vial 80 MG IV (13:38)
--- NOTE | 2024-05-11 13:56 | PCM.HP.STD ---
HPI - General General Date of Admission: 05/11/24 Date of Service: 05/11/24 Chief Complaint: Increasing LE swelling HPI Narrative RYAN WILL, is a 74-year-old male history of coronary artery disease with stenting, heart failure with reduced ejection fraction, CVA, diabetes, hypertension, hypothyroidism who presented [facility] ED 06/01 with 2 weeks of increasing lower extremity and scrotal edema. He was started on Lasix by his PCP but was taken off on the because of worsening renal function and then was switched to spironolactone but he has gained over 10 pounds. Patient has been having decreased urine output. BNP elevated at 3559 and patient did have overt lower extremity edema. CT scan of the abdomen pelvis obtained to rule out thrombosis of IVC given all of the edema and that was negative. Patient given IV Lasix and hospitalist contacted for admission. Patient reports that increased swelling in his lower extremities for the past 2 weeks but over the past several days he has had increased swelling in his scrotum which prompted the increased concern. He reports that swelling not necessarily better since the spironolactone but he does feel less dizzy when he stands up sometimes so he does find the spironolactone helpful. Does have decreased urine output but reports he does watch what he eats and his fluid intake given his heart failure. Takes his other medicines as prescribed. 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 HLD (hyperlipidemia) Cardiomyopathy, ischemic Abnormal serum enzyme level Dehydration Vertigo CAD (coronary artery disease) ARF (acute renal failure) Home Medications ?Medication ?Instructions ?Recorded ?Last Taken ?Type atorvastatin 80 mg tablet 80 mg PO QHS #30 tabs 06/24/14 05/10/24 Rx clopidogrel 75 mg tablet 75 mg PO DAILY #30 tabs 06/24/14 05/10/24 Rx metoprolol succinate 25 mg 25 mg PO DAILY #30 tabs 06/24/14 05/10/24 Rx tablet,extended release 24 hr multivitamin with folic acid 400 1 tab PO DAILYCM #0 tabs 06/24/14 05/10/24 Rx mcg tablet cholecalciferol (vitamin D3) 50 4,000 unit PO QDAY 01/27/20 05/10/24 History mcg (2,000 unit) tablet metformin 850 mg tablet 850 mg PO BIDCM 01/27/20 05/10/24 History warfarin 2 mg tablet See Rx Instructions .Route .COMPLEX 07/19/20 05/10/24 History warfarin 6 mg tablet 6 mg PO 5XW 07/19/20 05/10/24 History levothyroxine 25 mcg tablet 50 mcg PO QDAY 09/19/21 05/11/24 History amlodipine 2.5 mg tablet 2.5 mg PO DAILY #90 TABLETS 01/28/24 05/10/24 Rx furosemide 40 mg tablet (Lasix) 40 mg PO QDAY #90 tabs 02/19/24 Unknown Rx Held on 05/03/24. 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 (~05/03/14) Presence of automatic cardioverter/defibrillator (AICD) Social History Smoking Status: Current every day smoker tobacco type: cigarettes Tobacco: How many years used: 30 how long ago did patient quit smokin alcohol intake: never substance use type: does not use caffeine: No ROS ROS Narrative General: Denies fever/chills HENT: Denies headache, denies stuffy nose, denies sore throat EYES: Denies changes in vision Resp: Denies productive cough, denies shortness of breath Cardiac: Denies chest pain GI: Denies abdominal pain, denies changes in bowel, denies nausea/vomiting : Some decreased urination Extremity: Increased swelling bilateral lower extremities and scrotum MSK: Denies weakness Neuro: Denies any numbness/tingling Heme: Denies any bleeding or bruising Skin: Denies rashes Psychiatric: No complaints voiced Vital Signs Vital Signs Vital Signs: 05/11/24 10:07 05/11/24 11:23 05/11/24 12:07 Temperature 98.0 F Temperature Source Oral Pulse Rate 92 85 Respiratory Rate 16 16 Respiratory Pattern Normal Blood Pressure 140/86 H Blood Pressure Mean 104 Pulse Ox 99 95 Oxygen Delivery Method Room Air Room Air 05/11/24 13:30 Temperature 98.0 F Temperature Source Pulse Rate 85 Respiratory Rate 16 Respiratory Pattern Blood Pressure 140/86 H Blood Pressure Mean 104 Pulse Ox 95 Oxygen Delivery Method Weight Weight: 85.275 kg Body Mass Index (BMI) 31.2 Physical Exam Narrative General: Alert, oriented, no apparent distress HEENT: Atraumatic, normocephalic Eyes: Anicteric, normal conjunctiva, extraocular movements grossly intact Neck: Supple Respiratory: Diminished at the bases, normal respiratory effort Cardiovascular: Regular rate GI: Little bit distended without tenderness, rebound, guarding, rigidity Extremities: 2+ lower extremity edema more so left than right, also significant scrotal edema Musculoskeletal: Moving all extremities Neuro: No overt focal neurological deficits Skin: No rashes appreciated Psych: Cooperative Results Lab / Micro Data 05/11/24 11:20 05/11/24 11:20 Labs: Laboratory Results - last 24 hr 05/11/24 11:20: WBC 5.1, RBC 4.06 L, Hgb 10.0 L, Hct 33.0 L, MCV 81.3, MCH 24.6 L, MCHC 30.3 L, RDW Std Deviation 54.6 H, RDW Coeff of Ambrosio 18.4 H, Plt Count 200, MPV 8.7, Immature Gran % (Auto) 0.400, Neut % (Auto) 67.4, Lymph % (Auto) 16.7 L, [place] % (Auto) 13.0 H, Eos % (Auto) 1.9, Baso % (Auto) 0.6, Absolute Neuts (auto) 3.5, Absolute Lymphs (auto) 0.86, Nucleated RBC % 0, PT 32.4 H, INR 3.1, Sodium 138, Potassium 4.7, Chloride 107, Carbon Dioxide 23.0, Anion Gap 7, BUN 34 H, Creatinine 1.89 H, Estim Creat Clear Calc 35.48, Est GFR (MDRD) Af Amer 45 L, Est GFR (MDRD) Non-Af 37 L, BUN/Creatinine Ratio 18.0, Glucose 129 H, Calcium 9.0, Total Bilirubin 0.60, AST 35, ALT 39, Alkaline Phosphatase 122 H, B-Natriuretic Peptide 3559.4 H, Total Protein 7.2, Albumin 3.4, Globulin 3.8, Albumin/Globulin Ratio 0.9 05/11/24 13:05: Urine Color Yellow, Urine Clarity Clear, Urine pH 6.0, Ur Specific [place] 1.020, Urine Protein 100 H, Urine Glucose (UA) Normal, Urine Ketones 5 H, Urine Occult Blood 50 H, Urine Nitrite Negative, Urine Bilirubin Negative, Urine Urobilinogen Normal, Ur Leukocyte Esterase Negative, Urine RBC 0-5 SEEN, Urine WBC 0-5 SEEN, Ur Squamous Epith Cells 0-5 SEEN, Urine Bacteria 1+, Urine Mucus 0 SEEN Imaging Radiology Impression Abdomen/Pelvis CT 05/11/24 10:51 IMPRESSION: 1. Ascites. 2. Fatty liver with possible cirrhosis. Clinical correlation is recommended. 3. Bilateral inguinal hernias, larger on the left. 4. Bilateral pleural effusions with compressive atelectasis. Reading Location: [facility] Chest X-Ray 05/11/24 10:51 IMPRESSION: Cardiomegaly without overt failure. Reading Location: [facility] Assessment & Plan Assessment/Plan (1) Leg edema: PLAN: Plan #Acute exacerbation of chronic heart failure reduced ejection fraction w/ scrotal edema -Admit to telemetry -BNP 3559 -CXR no signs of overt failure however patient with bilateral pleural effusion seen at lung bases on CT -Continue IV lasix -Last echo 02/24/2024 EF 15% and global hypokinesis -No repeat echo ordered given proximity of previous echo -Daily weights, I's and O's -Fluid restriction, heart healthy diet # History of coronary artery disease -With previous stenting, continue Coumadin, statin, beta-danna, Plavix # CKD stage III b -Appears to be at or possibly slightly up from baseline (currently 1.89, baseline may be closer to 1.4-1.5) -Will be diuresing, increase certainly could be a component of cardiorenal -Daily BMPs # History of CVA -Reportedly on Coumadin for this, may have at some point had underlying A-fib -INR 3.1 -Will repeat in the a.m. and plan to keep current dosing moving forward unless further adjustments needed -Continue statin #Hypothyroidism -Continue Synthroid #Type 2 diabetes mellitus -Glucose checks and sliding scale insulin #Hypertension -Continue home blood pressure medications #DVT ppx: On Coumadin, therapeutic Taina Yost MD Charges/Coding Visit Charges Inpatient E&M: 36213 Init Hosp L2
[2024-05-11 14:00] VITALS: PULSE 83; RESP 18; O2SAT 97
[2024-05-11 14:42] VITALS: BP 126/74
--- NOTE | 2024-05-11 14:51 | ED.RN ---
Meal tray ordered for patient
[2024-05-11 15:56] VITALS: BMI 30.5
[2024-05-11 17:19] LABS: Bedside Glucose 109 mg/dL (74-106)
[2024-05-11 21:37] VITALS: BP 104/73; PULSE 84; RESP 18; TEMP 37.3; O2SAT 97
[2024-05-11] MEDS: Atorvastatin Calcium 80 MG Tablet PO (21:42)
[2024-05-11 23:00] LABS: Bedside Glucose 148 mg/dL (74-106)
[2024-05-12 03:15] VITALS: BP 115/73; PULSE 83; RESP 18; TEMP 37.2; O2SAT 95
[2024-05-12 04:58] LABS: Absolute Lymphocyte Count 0.73 X10^3/uL (0.83-4.51); Absolute Neutrophil Count 3.2 X10^3/uL (2.0-7.7); Basophil# 0.03 X10^3/uL; Basophil% 0.6 % (0-1); Eosinophil# 0.16 X10^3/uL; Eosinophils% 3.3 % (0-5); Hemoglobin 9.2 g/dL (13.0-16.5); Lymphocyte # 0.73 X10^3/ul (0.83-4.51); Mean Corp Hgb Conc 30.7 g/dL (32-36); Mean Corpuscular Hgb 24.8 pg (27.0-32.0); Mean Corpuscular Volume 80.9 fL (80-94); Mean Platelet Vol. 9.1 fl (6.2-12.0); Monocyte# 0.71 X10^3/uL; Monocyte% 14.5 % (0-10); NRBC Flagged by Analyzer 0 % (0-5); Neutrophil # 3.23 X10^3/uL (2.7-7.7); Neutrophil % 66.2 % (47-70); Platelet Count 165 K/mm3 (150-450); RBC Distribution Width CV 18.4 % (11.6-14.6); RBC Distribution Width SD 53.6 fl (35.1-43.9); Red Blood Count 3.71 M/mm3 (4.6-6.2); White Blood Count 4.9 K/mm3 (4.4-11.0)
[2024-05-12 05:25] LABS: Anion Gap 8 (5-15); BUN 32 mg/dL (7-18); BUN/Creat Ratio 17.3 RATIO (10-20); Calcium,Total 8.6 mg/dL (8.5-10.1); Chloride 105 mmol/L (98-107); Cholesterol 71 mg/dL (200); Creatinine, Serum 1.85 mg/dL (0.70-1.30); EST Glomerular Filtration Rate 38 mL/min (>60); Est Glom Filt Rate - Afr Amer 46 mL/min (>60); Estimated Creatinine Clearance 35.56 ml/min; Glucose 81 mg/dL (74-106); High Density Lipoprotein 35 mg/dL; Sodium Level 138 mmol/L (136-145); Triglycerides 58 mg/dL; Very Low Density Lipoprotein 12 mg/dL (5-40)
[2024-05-12] MEDS: Levothyroxine 50 MCG Tablet PO (06:36)
[2024-05-12 06:55] LABS: Bedside Glucose 93 mg/dL (74-106)
--- NOTE | 2024-05-12 07:39 | PCM.PN.HOSP ---
Reason for Visit Reason for Visit: Diagnoses Localized edema (05/11/24) Subjective Subjective Patient is a 74-year-old gentleman with known congestive heart failure with reduced ejection fraction 15% presented to the emergency department with progressive shortness of breath and generalized edema and assessment of CHF exacerbation made admitted to monitored bed for subsequent management Objective Data Objective Data Vital Signs: Vital Signs Temp Pulse Resp BP Pulse Ox O2 Del Method 99.0 F 83 18 115/73 95 Room Air 05/12/24 03:15 05/12/24 03:15 05/12/24 03:15 05/12/24 03:15 05/12/24 03:15 05/12/24 05:10 Oxygen Delivery Method Room Air Weight: 81.9 kg Body Mass Index (BMI) 30.0 Intake & Output: Intake and Output for Last 24 Hours 05/10/24 05/11/24 05/12/24 23:59 23:59 23:59 Output Total 450 / 1550 1600 / 1600 Balance -450 / -1550 -1600 / -1600 Lab / Micro Data 05/12/24 03:47 05/12/24 03:47 Labs: Laboratory Results - last 24 hr 05/11/24 11:20: WBC 5.1, RBC 4.06 L, Hgb 10.0 L, Hct 33.0 L, MCV 81.3, MCH 24.6 L, MCHC 30.3 L, RDW Std Deviation 54.6 H, RDW Coeff of Ambrosio 18.4 H, Plt Count 200, MPV 8.7, Immature Gran % (Auto) 0.400, Neut % (Auto) 67.4, Lymph % (Auto) 16.7 L, [place] % (Auto) 13.0 H, Eos % (Auto) 1.9, Baso % (Auto) 0.6, Absolute Neuts (auto) 3.5, Absolute Lymphs (auto) 0.86, Nucleated RBC % 0, PT 32.4 H, INR 3.1, Sodium 138, Potassium 4.7, Chloride 107, Carbon Dioxide 23.0, Anion Gap 7, BUN 34 H, Creatinine 1.89 H, Estim Creat Clear Calc 35.48, Est GFR (MDRD) Af Amer 45 L, Est GFR (MDRD) Non-Af 37 L, BUN/Creatinine Ratio 18.0, Glucose 129 H, Calcium 9.0, Total Bilirubin 0.60, AST 35, ALT 39, Alkaline Phosphatase 122 H, B-Natriuretic Peptide 3559.4 H, Total Protein 7.2, Albumin 3.4, Globulin 3.8, Albumin/Globulin Ratio 0.9 05/11/24 13:05: Urine Color Yellow, Urine Clarity Clear, Urine pH 6.0, Ur Specific Hi [place] 1.020, Urine Protein 100 H, Urine Glucose (UA) Normal, Urine Ketones 5 H, Urine Occult Blood 50 H, Urine Nitrite Negative, Urine Bilirubin Negative, Urine Urobilinogen Normal, Ur Leukocyte Esterase Negative, Urine RBC 0-5 SEEN, Urine WBC 0-5 SEEN, Ur Squamous Epith Cells 0-5 SEEN, Urine Bacteria 1+, Urine Mucus 0 SEEN 05/11/24 16:36: POC Glucose 109 H 05/11/24 21:41: POC Glucose 148 H 05/12/24 03:47: WBC 4.9, RBC 3.71 L, Hgb 9.2 L, Hct 30.0 L, MCV 80.9, MCH 24.8 L, MCHC 30.7 L, RDW Std Deviation 53.6 H, RDW Coeff of Ambrosio 18.4 H, Plt Count 165, MPV 9.1, Immature Gran % (Auto) 0.400, Neut % (Auto) 66.2, Lymph % (Auto) 15.0 L, [place] % (Auto) 14.5 H, Eos % (Auto) 3.3, Baso % (Auto) 0.6, Absolute Neuts (auto) 3.2, Absolute Lymphs (auto) 0.73 L, Nucleated RBC % 0, Sodium 138, Potassium 4.0, Chloride 105, Carbon Dioxide 25.0, Anion Gap 8, BUN 32 H, Creatinine 1.85 H, Estim Creat Clear Calc 35.56, Est GFR (MDRD) Af Amer 46 L, Est GFR (MDRD) Non-Af 38 L, BUN/Creatinine Ratio 17.3, Glucose 81, Calcium 8.6, Triglycerides 58, Cholesterol 71, LDL Cholesterol 24, VLDL Cholesterol 12, HDL Cholesterol 35 L 05/12/24 06:34: POC Glucose 93 Radiography Diagnostic Testing: Radiology Impression Abdomen/Pelvis CT 05/11/24 10:51 IMPRESSION: 1. Ascites. 2. Fatty liver with possible cirrhosis. Clinical correlation is recommended. 3. Bilateral inguinal hernias, larger on the left. 4. Bilateral pleural effusions with compressive atelectasis. Reading Location: [facility] Chest X-Ray 05/11/24 10:51 IMPRESSION: Cardiomegaly without overt failure. Reading Location: [facility] Venous Doppler Study 05/11/24 10:51 Interpretation Summary Deep veins of the lower extremities are bilaterally patent and compressible segmentally. There is no evidence of deep vein thrombosis on either side. Valvular competence appears intact within the proximal deep venous systems bilaterally. The great saphenous veins appear bilaterally patent and compressible segmentally. Pulsatile flow is noted in the deep venous system bilaterally, which may be indicative of elevated central venous pressure (i.e. congestive heart failure, pulmonary hypertension, etc.). Clinical correlation is advised. Ordering Physician: Rolando Hunt Referring Physician: Sherice Campos Performed By: Corey Harding RVT Physical Exam Narrative GENERAL: cooperative HEENT: Atraumatic; normocephalic EYES; Anicteric, Normal Conjunctiva NECK; supple, normal thyroid, RESPIRATORY: Diminished to auscultation CARDIOVASCULAR: Regular S1 S2, GI: soft, normoactive bowel sounds, : No Renal angle tenderness; EXTREMITIES: 2+ pedal edema, no clubbing, MUSCULOSKELETAL: no muscle wasting NEURO: Awake; no lateralizing signs. SKIN: No Rash PSYCH; Flat affect Assessment & Plan Assessment/Plan (1) Leg edema: PLAN: Plan Patient is a 74-year-old gentleman with known congestive heart failure with reduced ejection fraction 15% presented to the emergency department with progressive shortness of breath and generalized edema and assessment of CHF exacerbation made admitted to monitored bed for subsequent management 1. Acute on chronic congestive heart failure with reduced ejection fraction ? Echo from 02/24/2024 demonstrated EF of 15% with global hypokinesis. Patient has been admitted to a monitored bed managed with strict input and output, daily weight, fluid restriction as well as IV furosemide 2. Coronary artery disease ? With previous PCI on recommended medications 3. Chronic kidney disease stage IIIb kidney function at baseline ? Monitoring with daily BMP 4. Paroxysmal A-fib ? Rate controlled on systemic anticoagulation with warfarin 5. Hypothyroidism ? Patient is on levothyroxine home dose continued 6. Diabetes mellitus type II -patient's oral hypoglycemics held. Placed on long acting insulin, Accu-Cheks a.c. and at bedtime and covered with sliding scale insulin 7. Hypertension ? Blood pressure controlled, home medications continued with dose adjustment as needed 8. Class I obesity with BMI of 30 ? Complicating care weight loss advised 9. Anemia ? Secondary to chronic disorder monitoring H&H and transfuse if patient becomes symptomatic or hemoglobin falls below 7 10. DVT prophylaxis ? On warfarin with a therapeutic INR Time spent in the patient's overall evaluation,decision-making process, review of diagnostic data, adjustment of management, discussion with other providers, nursing nursing and ancillary staff involved in patient's care documentation, 50 Minutes Charges/Coding Visit Charges Inpatient E&M: 07463 Subs Hosp L3
[2024-05-12 10:00] VITALS: BP 100/55; PULSE 91; RESP 16; TEMP 36.9; O2SAT 96
[2024-05-12] MEDS: Clopidogrel Bisulfate 75 MG Tablet PO (10:00)
[2024-05-12] MEDS: Metoprolol(XL)Succ 25 MG Tablet PO (10:00)
[2024-05-12] MEDS: Spironolactone 25 MG Tablet PO (10:00)
[2024-05-12] MEDS: Furosemide 40 MG/4 ML Vial IV (10:00)
--- NOTE | 2024-05-12 10:20 | CASEMGMT ---
RN CM ONCOLOGY COORDINATOR CM?to room to meet with patient for initial transition planning/care coordination assessment. RN CM?introduced self and role at [facility]. Pt voices understanding and consents to assessment?at this time. Pt resting in bed in no distress at this time. Pt is A/O at this time and answers all questions appropriately. Care providers, pharmacy, and demographics verified/updated at this time. Strata:?2 PCP: Dr Campos Specialists: [facility]/Cardiology, Dr Vidal-vascular (Pt states Dr Vidal recently referred him to [facility]) Preferred Pharmacy: [facility] @ discharge. Otherwise, pt goes to [facility], [place]. Insurance:[employer] MCR Prescription Benefit: Yes Living Will/HPOA: Pt does not currently have LW/HCPOA and declines info at this time. Pt made aware that he can contact as an out-pt and make appt in the future if he decides he would like to talk with someone about this or would like to utilize [facility] social work for advanced directive completion. LNOK: , Frieda. Parents are . No children. Pt has a sister and a brother. Living Arrangements: Pt lives w/ in one-story home w/1 1/2 step to enter. Indepedent. Transportation:Pt states drives self and states no transportation concerns at this time. also drives. DME: States has the following DME: BP machine, shower chair, functioning glucometer w/supplies. Pt checks his BS's daily. Pt states no need for further DME at this time. HHC/SNF: Hx [facility] RU and [facility] TCU, both in 2014. No hx of HHC. Pt declines the need for HHC or OP therapy and no needs identified. Pt wishes to return home and states has no concerns with going home at time of discharge. CM?to follow for any discharge planning/needs. Pt voices no concerns/needs at this time. Advised pt to ask for CM?if any further questions/concerns/needs arise. Voices understanding. PLAN: Home Laureen SOLIMANN CASANDRA BARAKAT
[2024-05-12] MEDS: amLODIPine 2.5 MG Tablet PO (12:33)
[2024-05-12] MEDS: Insulin Lispro 100 UNIT/ML INSULN.PEN SC ×2 (12:40→17:35)
[2024-05-12 13:49] LABS: Bedside Glucose 188 mg/dL (74-106)
[2024-05-12 17:27] VITALS: BP 112/72; PULSE 85; RESP 16; TEMP 36.7; O2SAT 97
[2024-05-12 19:08] LABS: Bedside Glucose 164 mg/dL (74-106)
[2024-05-12 22:14] VITALS: BP 126/78; PULSE 84; RESP 18; TEMP 36.7; O2SAT 99
[2024-05-12] MEDS: Atorvastatin Calcium 80 MG Tablet PO (22:18)
[2024-05-12] MEDS: MELATONIN 3 MG TABLET PO (22:22)
[2024-05-12 23:55] LABS: Bedside Glucose 122 mg/dL (74-106)
[2024-05-13 03:11] VITALS: BP 103/70; PULSE 73; RESP 18; TEMP 36.6; O2SAT 96
[2024-05-13 06:00] VITALS: BMI 29.9
[2024-05-13] MEDS: Levothyroxine 50 MCG Tablet PO (06:16)
[2024-05-13 06:36] LABS: Bedside Glucose 102 mg/dL (74-106)
[2024-05-13 08:33] VITALS: BP 115/80; PULSE 78; RESP 16; TEMP 36.7; O2SAT 100
[2024-05-13] MEDS: amLODIPine 2.5 MG Tablet PO (08:39)
[2024-05-13] MEDS: Clopidogrel Bisulfate 75 MG Tablet PO (08:39)
[2024-05-13 08:40] VITALS: BP 115/80; PULSE 78
[2024-05-13] MEDS: Spironolactone 25 MG Tablet PO (08:40)
[2024-05-13] MEDS: Metoprolol(XL)Succ 25 MG Tablet PO (08:40)
[2024-05-13] MEDS: Furosemide 40 MG/4 ML Vial IV (08:40)
[2024-05-13] MEDS: 0.9% Saline Lock 10 ML Syringe IV (08:47)
[2024-05-13 08:53] VITALS: PULSE 81
--- NOTE | 2024-05-13 11:46 | PCM.DC.SUM ---
Providers Date of Admission: 05/11/24 Date of Discharge: 05/13/24 Primary Care Physician: Dr. Sherice Campos, DO Reason For Visit: HEART FAILURE EXACERBATION Diagnosis Discharge Diagnosis (1) Leg edema: Status: Acute Code(s): R60.0 - Localized edema Plan Patient is a 74-year-old gentleman with known congestive heart failure with reduced ejection fraction 15% presented to the emergency department with progressive shortness of breath and generalized edema and assessment of CHF exacerbation made admitted to monitored bed for subsequent management 1. Acute on chronic congestive heart failure with reduced ejection fraction ? Echo from 02/24/2024 demonstrated EF of 15% with global hypokinesis. Patient has been admitted to a monitored bed managed with strict input and output, daily weight, fluid restriction as well as IV furosemide ? Patient was discharged home on furosemide 2. Coronary artery disease ? With previous PCI on recommended medications 3. Chronic kidney disease stage IIIb kidney function at baseline ? Monitoring with daily BMP 4. Paroxysmal A-fib ? Rate controlled on systemic anticoagulation with warfarin 5. Hypothyroidism ? Patient is on levothyroxine home dose continued 6. Diabetes mellitus type II -patient's oral hypoglycemics held. Placed on long acting insulin, Accu-Cheks a.c. and at bedtime and covered with sliding scale insulin 7. Hypertension ? Blood pressure controlled, home medications continued with dose adjustment as needed 8. Class I obesity with BMI of 30 ? Complicating care weight loss advised 9. Anemia ? Secondary to chronic disorder monitoring H&H and transfuse if patient becomes symptomatic or hemoglobin falls below 7 10. DVT prophylaxis ? On warfarin with a therapeutic INR Time spent in the patient's overall evaluation,decision-making process, review of diagnostic data, adjustment of management, discussion with other providers, nursing nursing and ancillary staff involved in patient's care documentation, 50 Minutes Medications at Discharge Home Medications atorvastatin 80 mg tablet 80 mg PO QHS #30 tabs 06/24/14 clopidogrel 75 mg tablet 75 mg PO DAILY #30 tabs 06/24/14 metoprolol succinate 25 mg tablet,extended release 24 hr 25 mg PO DAILY #30 tabs 06/24/14 multivitamin with folic acid 400 mcg tablet 1 tab PO DAILYCM #0 tabs 06/24/14 cholecalciferol (vitamin D3) 50 mcg (2,000 unit) tablet 4,000 unit PO QDAY 01/27/20 metformin 850 mg tablet 850 mg PO BIDCM 10/22/20 warfarin 2 mg tablet See Rx Instructions .Route .COMPLEX 07/19/20 warfarin 6 mg tablet 6 mg PO 5XW 07/19/20 levothyroxine 25 mcg tablet 50 mcg PO QDAY 09/19/21 amlodipine 2.5 mg tablet 2.5 mg PO DAILY #90 TABLETS 01/28/24 spironolactone 25 mg tablet 25 mg PO QDAY #90 tabs 03/12/24 furosemide 40 mg tablet (Lasix) 40 mg PO QDAY #90 tabs 05/13/24 Physical Exam Narrative GENERAL: cooperative HEENT: Atraumatic; normocephalic EYES; Anicteric, Normal Conjunctiva NECK; supple, normal thyroid, RESPIRATORY: Diminished to auscultation CARDIOVASCULAR: Regular S1 S2, GI: soft, normoactive bowel sounds, : No Renal angle tenderness; EXTREMITIES: trace pedal edema, no clubbing, MUSCULOSKELETAL: no muscle wasting NEURO: Awake; no lateralizing signs. SKIN: No Rash PSYCH; Flat affect Weight / BMI Weight Weight: 81.6 kg Body Mass Index (BMI) 29.9 ABG / Lab / Microbiology Data 05/12/24 03:47 05/12/24 03:47 Laboratory: Laboratory Results - last 24 hr 05/12/24 12:31: POC Glucose 188 H 05/12/24 17:33: POC Glucose 164 H 05/12/24 22:18: POC Glucose 122 H 05/13/24 06:15: POC Glucose 102 D/C Instructions Discharge Diet: 8 Cup Fluid Restriction and 2000 mg Sodium Diet Discharge Activity: Return to Normal Activity Call your doctor if you observe: Fever of 101 or Higher, Shortness of breath, Fainting spells and Chest pain DC O2, CPAP, BIPAP Needs Home O2 Discharge instructions: No Meaningful Use Info Meaningful Use Meaningful Use Diagnoses (Choose all that apply): CHF CHF ALEJANDRA/ARB ordered at discharge?: No Reason ALEJANDRA/ARB not ordered?: Worsening renal dysfunctn Documented LVEF (%): 15 Ischemic Stroke Statin Dosing Therapy Reference: STATIN DOSE THERAPY REFERENCE: * Patients > 75 years receive moderate or high dose statin therapy. * Patients 75 years or YOUNGER should receive HIGH intensity statin dose unless contraindicated. You will be required to document reason for non-treatment if statin daily dose does not meet guidelines. HIGH DOSE STATIN THERAPY DAILY Atorvastatin > than or = to 40 mg Rosuvastatin > than or = to 20 mg Amlodipine + Atorvastatin > than or = to 2.5/40 mg Ezetimibe + Simvastatin 10/80 mg Simvastatin 80mg Discharge Plan Admission Admit Date/Time: 05/11/24 13:56 Attending Provider: Dennis Owens Primary Care Provider: Sherice Campos Consulting Providers: Taina Yost Discharge Orders/Prescriptions Prescriptions: Continued cholecalciferol (vitamin D3) 50 mcg (2,000 unit) tablet 4,000 unit PO QDAY levothyroxine 25 mcg tablet 50 mcg PO QDAY warfarin 2 mg tablet See Rx Instructions .ROUTE .COMPLEX Dose Instruction: TAKE 2 TABLETS (4 MG) ON TUESDAYS AND WEDNESDAYS; TAKE 6 MG TABLET ON ALL OTHER DAYS OF THE WEEK Rx Instructions: TAKE 2 TABLETS (4 MG) ON FRIDAY, FRIDAY, FRIDAY; TAKE 6 MG TABLET ON ALL OTHER DAYS OF THE WEEK Managed by Dr. Campos warfarin 6 mg tablet 6 mg PO 5XW Protocol: Dose Management Protocol Text: Patient Instructed to take: warfarin 2 mg (2 Tabs) on , WE warfarin 6 mg (1 Tab) on , , , FR, SA Rx Instructions: Managed by Dr. Campos multivitamin with folic acid 1 TABLET tablet 1 tab PO DAILYCM Qty: 0 0RF Patient Comments: vitamin atorvastatin 80 MG tablet 80 mg PO QHS Qty: 30 0RF Patient Comments: lowers cholesterol clopidogrel 75 MG tablet 75 mg PO DAILY Qty: 30 0RF Patient Comments: blood thinner metoprolol succinate 25 MG tablet 25 mg PO DAILY Qty: 30 0RF Patient Comments: lowers blood pressure metformin 850 mg tablet 850 mg PO BIDCM Patient Comments: diabetes medication furosemide [Lasix] 40 mg tablet 40 mg PO QDAY Qty: 90 0RF amlodipine 2.5 mg tablet 2.5 mg PO DAILY Qty: 90 3RF spironolactone 25 mg tablet 25 mg PO QDAY Qty: 90 3RF Referrals / Follow Up: Sherice Campos DO [Primary Care Provider] - Within 1 Week Disposition Disposition (needs filled in before D/C Order can be placed): Home, Self Care Charges/Coding Visit Charges Inpatient E&M: 78511 Disch Hosp >30min
[2024-05-13 11:50] LABS: Bedside Glucose 157 mg/dL (74-106)
[2024-05-13] MEDS: Insulin Lispro 100 UNIT/ML INSULN.PEN SC (12:09)
[2024-05-13 14:46] VITALS: BP 108/69; PULSE 81; RESP 18; TEMP 36.2; O2SAT 98
--- NOTE | 2024-05-13 15:35 | CHAPLAIN ---
Type of Pastoral Visit _x__ Initial Visit ___ Follow-up Visit ___ On-call Visit ___ General Patient Visit ___ Spiritual Assessment ___ Family Conference ___ Bereavement ___ Rapid Response ___ Code Blue ___ Other (describe below) Pastoral Care Referral From _x__ Patient ___ Family ___ Nurse ___ Physician ___ Magnetic Tape Winder ___ Risk Adjustment Specialist ___ Other (describe below) Sacrament/Intervention _x__ Active listening ___ Anointing ___ Pentecostalism ___ Bereavement ___ Communion ___ Melanie exploration ___ _x__ Life review _x__ Prayer ___ Reconciliation ___ Sacrament of Sick ___ Supportive presence ___ Wedding ___ Other (describe below) Pastoral Comments patient was welcoming and was expecting to be discharged soon; spouse had gone to get their car; pt reports that [employer] had come to give him communion earlier and that was appreciated; pt gives some life review and casual conversation; supportive listening and reflection given along with a prayer
== END 2024-05-13 15:00 | disposition home or self-care (01) | DRG 291 ==
LOC: ED 13:03 → PCU 15:04
PROVIDERS: Admitting Provider Internal Medicine; Emergency Provider Emergency Medicine; PCP Internal Medicine; Visit Provider Internal Medicine
DX: I13.0 Hypertensive heart and chronic kidney disease with heart failure and stage 1 through stage 4 chronic kidney disease, or unspecified chronic kidney disease (principal); I50.23 Acute on chronic systolic (congestive) heart failure; E03.9 Hypothyroidism, unspecified; Z79.01 Long term (current) use of anticoagulants; N18.32 Chronic kidney disease, stage 3b; E11.22 Type 2 diabetes mellitus with diabetic chronic kidney disease; E66.811 Obesity, class 1; I48.0 Paroxysmal atrial fibrillation; I25.10 Atherosclerotic heart disease of native coronary artery without angina pectoris; E78.00 Pure hypercholesterolemia, unspecified; E11.51 Type 2 diabetes mellitus with diabetic peripheral angiopathy without gangrene; I25.2 Old myocardial infarction; F17.210 Nicotine dependence, cigarettes, uncomplicated; Z68.31 Body mass index [BMI] 31.0-31.9, adult; Z79.899 Other long term (current) drug therapy; Z79.02 Long term (current) use of antithrombotics/antiplatelets; Z79.84 Long term (current) use of oral hypoglycemic drugs; Z86.73 Personal history of transient ischemic attack (TIA), and cerebral infarction without residual deficits; Z95.810 Presence of automatic (implantable) cardiac defibrillator; Z95.5 Presence of coronary angioplasty implant and graft
CPT/HCPCS: 36415; 71045; 74177; 80048; 80053; 80061; 81001; 82962; 83880; 85025; 85610; 93970; 99284; Q9967; A4216; J1940

== ENCOUNTER 2024-06-06 17:38 | Inpatient (IN) | payer MEDICARE, SELFPAY ==
[2024-06-06] VITALS (10 sets, daily range): BP systolic 81–120; BP diastolic 59–89; PULSE 99–109; RESP 13–21; TEMP 36.4–36.7; O2SAT 97–100; BMI 29.9; BMI 28.9
--- NOTE | 2024-06-06 17:56 | EKG12_ITS ---
Test Reason : general Blood Pressure : */* mmHG Vent. Rate : 103 BPM Atrial Rate : 103 BPM P-R Int : 208 ms QRS Dur : 156 ms QT Int : 396 ms P-R-T Axes : 43 -49 113 degrees QTcB Int : 518 ms Probable Sinus tachycardia Left axis deviation Left bundle branch block Abnormal ECG Poor tracing Baseline artifact Confirmed by Clem Butler ([id number]), primer expeditor and drier NITISH HUMMEL ([id number]) on 06/08/2024 10:49:19 AM Referred By: Confirmed By: Clem Butler
--- NOTE | 2024-06-06 17:58 | EX.ED.DYSGE1 ---
HPI <YOANA Lebron - Last Filed: 06/06/24 20:04> History of Present Illness Chief Complaint: GI Bleed Narrative Narrative: Patient is a 74-year-old male with history of CHF, renal sufficiency, on Coumadin, defibrillator, history of alcohol abuse greater than 10 years ago, currently does not drink alcohol, does not smoke cigarettes. Patient states that he has been feeling weak over the last several days, he has not taken his Coumadin 3 days. He states he had 1 episode of dark vomit yesterday, 2 dark stools today. He states he is feeling weak, short of breath and is here for evaluation. 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 HLD (hyperlipidemia) Cardiomyopathy, ischemic Abnormal serum enzyme level Dehydration Vertigo CAD (coronary artery disease) ARF (acute renal failure) Home Medications ?Medication ?Instructions ?Recorded ?Last Taken ?Type atorvastatin 80 mg tablet 80 mg PO QHS cholesterol #30 tabs 06/24/14 05/10/24 Rx clopidogrel 75 mg tablet 75 mg PO DAILY antiplatelet #30 06/24/14 05/10/24 Rx tabs metoprolol succinate 25 mg 25 mg PO DAILY heart/BP #30 tabs 06/24/14 05/10/24 Rx tablet,extended release 24 hr multivitamin with folic acid 400 1 tab PO DAILYCM supplement #0 tabs 06/24/14 05/10/24 Rx mcg tablet cholecalciferol (vitamin D3) 50 4,000 unit PO QDAY supplement 01/27/20 05/10/24 History mcg (2,000 unit) tablet metformin 850 mg tablet 850 mg PO BIDCM diabetes 01/27/20 05/10/24 History warfarin 6 mg tablet 5 mg PO 5XW blood thinner 07/19/20 06/04/24 History levothyroxine 25 mcg tablet 50 mcg PO QDAY thyroid 09/19/21 05/11/24 History amlodipine 2.5 mg tablet 2.5 mg PO DAILY blood pressure #90 01/28/24 05/10/24 Rx TABLETS spironolactone 25 mg tablet 25 mg PO QDAY water pill #90 tabs 03/12/24 05/11/24 Rx furosemide 40 mg tablet (Lasix) 40 mg PO QDAY #90 tabs 05/13/24 Unknown Rx Allergy/AdvReac Type Severity Reaction Status Date / Time No Known Allergies Allergy Verified 06/06/24 17:39 Family History Father Hypertension Surgical History History of eye surgery (~09/2023) 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 Positive for weakness Eyes: Negative for vision loss, vision change, double vision ENT: Negative for any sore throat, ear pain, congestion Cardiovascular: Negative for any chest pain, tightness, palpitations Respiratory: Negative for any cough, sputum production, hemoptysis, dyspnea, dyspnea on exertion, orthopnea Gastrointestinal: Negative for any vomiting, diarrhea, constipation. Positive for abdominal bloating, blood in stool, dark specks in vomit : Negative for any urinary frequency, dysuria, retention, blood in urine Muscle skeletal: Negative for any neck pain, back pain Neurological: Negative for any headache, syncope. Positive for dizziness Skin: Negative for any rashes, itching, abrasions, lacerations Psychiatric: Negative for any depression, anxiety, stress, suicidal ideation, homicidal ideation Hematologic: Negative for any excessive bruising, easy bleeding EXAM <YOANA Lebron - Last Filed: 06/06/24 20:04> Physical Exam Narrative Exam Narrative: Vital signs reviewed. Patient's vital signs are stable, patient does have a pale appearance. Slightly jaundiced. HEET: Head normocephalic atraumatic, TMs clear bilaterally. Posterior pharynx is clear, dry mucous membranes. Nares clear bilaterally. Neck: Supple with no lymphadenopathy or tenderness. No signs of meningismus. Cardiac: Regular rate and rhythm systolic murmur, no gallops or rubs, equal peripheral pulses bilaterally. Respiratory: Lungs clear to auscultation bilaterally. No chest tenderness. Abdomen: Soft, nontender, nondistended. No abdominal bruit or pulsatile masses. No hepatosplenomegaly Extremities: +3 pitting edema no signs of gross trauma or deformity. Active full range of motion of all extremities. Neuro: Cranial nerves II through XII intact, no focal neurological deficits. Skin: Clean dry and intact with no rash, purpura, petechiae, vesicles or pustules. Backs/flank: No CVA tenderness, no midline spinal tenderness, no deformity. Psych: Normal mood and affect. No SI, HI or acute psychosis. Rectal: Patient did have melanotic stool around the anus, on my finger there is no teresa bleeding, there is no bleeding hemorrhoid. Stool was dark in color. Female supervisor [place] during exam. Const Vital Signs: 06/06/24 17:39 Temperature 98.1 F Temperature Source Oral Pulse Rate 103 H Respiratory Rate 18 Blood Pressure 115/73 Blood Pressure Mean 87 Pulse Ox 97 Oxygen Delivery Method Room Air <Dr. Calin Mohr DO - Last Filed: 06/06/24 20:26> Physical Exam Const Vital Signs: 06/06/24 17:39 Temperature 98.1 F Temperature Source Oral Pulse Rate 103 H Respiratory Rate 18 Blood Pressure 115/73 Blood Pressure Mean 87 Pulse Ox 97 Oxygen Delivery Method Room Air [facility] <YOANA Lebron - Last Filed: 06/06/24 20:04> [facility] Lab Data Labs: Laboratory Results - last 24 hr 06/06/24 06/06/24 18:30 19:00 WBC 8.7 RBC 2.97 L Hgb 7.5 L Hct 23.4 L MCV 78.8 L MCH 25.3 L MCHC 32.1 RDW Std Deviation 52.8 H RDW Coeff of Ambrosio 19.0 H Plt Count 187 MPV 9.9 Immature Gran % (Auto) 0.300 Neut % (Auto) 82.7 H Lymph % (Auto) 5.4 L [place] % (Auto) 11.4 H Eos % (Auto) 0.0 Baso % (Auto) 0.2 Absolute Neuts (auto) 7.1 Absolute Lymphs (auto) 0.47 L Nucleated RBC % 0 PT > 120.0 H INR > 19.5 H* Sodium 130 L Potassium 5.2 H Chloride Direct 94 L Carbon Dioxide 17.0 L Anion Gap 19 H BUN 99 H Creatinine 2.97 H Estim Creat Clear Calc 22.10 L Est GFR (MDRD) Non-Af 22 L BUN/Creatinine Ratio 33.4 H Glucose 152 H Calcium 8.9 Total Bilirubin 0.88 Direct Bilirubin 0.57 H AST 486 H ALT 359 H Alkaline Phosphatase 129 Total Protein 6.4 Albumin 3.6 Globulin 2.8 Lipase 90 H Urine Color Yellow Urine Clarity Sl. Cloudy Urine pH 6.0 Ur Specific [place] 1.020 Urine Protein 30 H Urine Glucose (UA) Normal Urine Ketones Negative Urine Occult Blood 50 H Urine Nitrite Negative Urine Bilirubin Negative Urine Urobilinogen Normal Ur Leukocyte Esterase 25 H Urine RBC 0-5 SEEN Urine WBC 0-5 SEEN Ur Squamous Epith Cells 0-5 SEEN Amorphous Sediment 1+ URATE Urine Bacteria 0 SEEN Urine Mucus 0 SEEN Radiography Diagnostic Testing: Clinical Impression(s) from Imaging Studies Chest X-Ray 06/06/24 18:25 IMPRESSION: Cardiomegaly with no acute pulmonary disease Reading Location: [facility] EKG Sinus tachycardia: Attestation: I personally reviewed and interpreted this EKG as follows: Interpretation: Sinus Rhythm Comments: Sinus tachycardia, rate 103 bpm, AR interval 208 ms, QRS duration 56 ms, no acute ST elevation, no acute infarct noted. Treatment and Re-Evaluation :: Differential diagnosis includes however is not limited to: Significant anemia, esophageal varices, Bland's esophagus, upper GI bleed, lower GI bleed, worsening cirrhosis Patient is alert and oriented, vital signs are stable, however patient does have a pallor appearance. Slightly jaundiced appearance. Patient has had 1 episode of vomitus with black specks, as well as 2 episodes of black tarry stool. On my physical examination, there was some melenic stool. Patient will receive basic laboratory values including type and screen, lactic acid, BMP liver panel or lipase. Chest x-ray will be obtained. All radiologic examinations were read, reviewed by the emergency department attending. From these reads, a plan of care will be put in place. Patient CBC shows a low hemoglobin at 1 month ago was 9.2, patient's PTT was greater than 120, INR is greater than 19.5, secondary to this, patient was given 5 mg of IV vitamin K. Chemistries show a creatinine of 2.97. Patient is also showing transaminitis with an AST of 486 with an ALT of 356, lipase is 90. Currently waiting a lactic acid. Chest x-ray was unremarkable. Urinalysis negative for any infection. I will reach out to Dr. Aceves, then the hospitalist. Patient will need to be admitted. Spoke with Dr. Aceves, he will see the patient tomorrow. Spoke with hospitalist,3.7. Patient will be admitted to ICU. Stable. <Dr. Calin Mohr, DO - Last Filed: 06/06/24 20:26> [facility] Narrative Medical decision making narrative: I have personally performed a face to face assessment of the patient and have reviewed the RHONDA Note. I performed a substantive portion of the visit including all aspects of the following. My villagran findings include: History: Patient presents with black stools that have been constant for the past 2 days. Patient states he feels weak. Patient states he has had some bloating in his abdomen. Patient admits to some nausea and vomiting. Patient states he did have a bloody emesis at home. Patient denies any fevers or chills. Patient denies any urinary complaints. Exam: Vital signs are stable except for mild tachycardia of 103. Patient is afebrile. Patient is in no acute distress. Skin is warm and dry. There is some jaundice noted. Pupils are equal, round, and reactive to light bilaterally. Extraocular muscles are intact. There are some scleral icterus noted. Conjunctiva is only slightly pale. Neck is supple. Trachea is midline. There is no JVD. Heart was regular rate and rhythm. Lungs are clear and equal bilaterally. Abdomen is soft. Bowel sounds are normal. There is no tenderness. There is no fluid wave noted. Cranial nerves II through XII are intact. There are no focal motor or sensory deficits noted. Rectal exam was performed by the RHONDA under my supervision. Medical Decision Making: Differential diagnosis includes gastrointestinal bleeding, anemia, hepatic disease, pancreatitis, electrolyte abnormality, and coagulopathy. CBC will be obtained to assess for leukocytosis and anemia. Basic metabolic profile will be obtained to assess for electrolyte abnormality renal function. Liver profile will be obtained to assess for hepatic function. Lipase will be obtained to assess for pancreatitis. Serum lactate will be obtained to assess for sepsis. Stool for occult blood will be obtained to assess for gastrointestinal bleeding. PT with INR will be obtained to assess for coagulopathy. Chest x-ray will be obtained to assess for pneumonia. EKG was obtained. On my independent interpretation, shows sinus tachycardia with a rate of 103. AR interval was slightly prolonged at 208 ms. QRS interval was prolonged at 156 ms. QTc interval was prolonged at 518 ms. There is left axis deviation at -49. There is a left bundle branch block pattern noted. There are no acute ST or T wave changes noted. CBC was reviewed. Hemoglobin was 7.5 and hematocrit was 23.4. Platelets were normal. White blood cell count was normal. PT was INR was reviewed. Pro time was greater than 120 and INR was greater than 19.5. Comprehensive metabolic profile was reviewed. Sodium was slightly low at 130. Potassium was slightly elevated at 5.2. Chloride was slightly low at 94. CO2 is 17. BUN was elevated at 99 and creatinine was elevated at 2.97. Total bilirubin was normal at 0.88. Direct bilirubin was slightly elevated at 0.57. AST was 486, ALT was 359, and alkaline phosphatase was normal at 129. Lipase was reviewed and was slightly elevated at 90. Urinalysis was reviewed. There is no evidence of urinary tract infection or hematuria. Patient was typed and screened. Patient was given a dose of vitamin K IV. Case was discussed with Dr. cAeves. He recommends admission to the hospital. Case was discussed with the hospitalist. He will admit the patient to his service. Patient understood and was agreeable with the plan. All questions were answered. Lab Data Labs: Laboratory Results - last 24 hr 06/06/24 06/06/24 18:30 19:00 WBC 8.7 RBC 2.97 L Hgb 7.5 L Hct 23.4 L MCV 78.8 L MCH 25.3 L MCHC 32.1 RDW Std Deviation 52.8 H RDW Coeff of Ambrosio 19.0 H Plt Count 187 MPV 9.9 Immature Gran % (Auto) 0.300 Neut % (Auto) 82.7 H Lymph % (Auto) 5.4 L [place] % (Auto) 11.4 H Eos % (Auto) 0.0 Baso % (Auto) 0.2 Absolute Neuts (auto) 7.1 Absolute Lymphs (auto) 0.47 L Nucleated RBC % 0 PT > 120.0 H INR > 19.5 H* Sodium 130 L Potassium 5.2 H Chloride Direct 94 L Carbon Dioxide 17.0 L Anion Gap 19 H BUN 99 H Creatinine 2.97 H Estim Creat Clear Calc 22.10 L Est GFR (MDRD) Non-Af 22 L BUN/Creatinine Ratio 33.4 H Glucose 152 H Calcium 8.9 Total Bilirubin 0.88 Direct Bilirubin 0.57 H AST 486 H ALT 359 H Alkaline Phosphatase 129 Total Protein 6.4 Albumin 3.6 Globulin 2.8 Lipase 90 H Urine Color Yellow Urine Clarity Sl. Cloudy Urine pH 6.0 Ur Specific [place] 1.020 Urine Protein 30 H Urine Glucose (UA) Normal Urine Ketones Negative Urine Occult Blood 50 H Urine Nitrite Negative Urine Bilirubin Negative Urine Urobilinogen Normal Ur Leukocyte Esterase 25 H Urine RBC 0-5 SEEN Urine WBC 0-5 SEEN Ur Squamous Epith Cells 0-5 SEEN Amorphous Sediment 1+ URATE Urine Bacteria 0 SEEN Urine Mucus 0 SEEN Radiography Diagnostic Testing: Clinical Impression(s) from Imaging Studies Chest X-Ray 06/06/24 18:25 IMPRESSION: Cardiomegaly with no acute pulmonary disease Reading Location: [facility] Discharge Plan Triage Chief Complaint: GI Bleed ED Midlevel Provider: Esteban Phelps ED Provider: Calin Mohr Dx/Rx/DC Orders Prescriptions: No Action cholecalciferol (vitamin D3) 50 mcg (2,000 unit) tablet 4,000 unit PO QDAY levothyroxine 25 mcg tablet 50 mcg PO QDAY warfarin 2 mg tablet See Rx Instructions .ROUTE .COMPLEX Dose Instruction: TAKE 2 TABLETS (4 MG) ON TUESDAYS AND WEDNESDAYS; TAKE 6 MG TABLET ON ALL OTHER DAYS OF THE WEEK Rx Instructions: TAKE 2 TABLETS (4 MG) ON FRIDAY, FRIDAY, FRIDAY; TAKE 6 MG TABLET ON ALL OTHER DAYS OF THE WEEK Managed by Dr. Campos warfarin 6 mg tablet 6 mg PO 5XW Protocol: Dose Management Protocol Text: Patient Instructed to take: warfarin 2 mg (2 Tabs) on , WE warfarin 6 mg (1 Tab) on , [place], , FR, SA Rx Instructions: Managed by Dr. Campos multivitamin with folic acid 1 TABLET tablet 1 tab PO DAILYCM Qty: 0 0RF Patient Comments: vitamin atorvastatin 80 MG tablet 80 mg PO QHS Qty: 30 0RF Patient Comments: lowers cholesterol clopidogrel 75 MG tablet 75 mg PO DAILY Qty: 30 0RF Patient Comments: blood thinner metoprolol succinate 25 MG tablet 25 mg PO DAILY Qty: 30 0RF Patient Comments: lowers blood pressure metformin 850 mg tablet 850 mg PO BIDCM Patient Comments: diabetes medication furosemide [Lasix] 40 mg tablet 40 mg PO QDAY Qty: 90 0RF amlodipine 2.5 mg tablet 2.5 mg PO DAILY Qty: 90 3RF spironolactone 25 mg tablet 25 mg PO QDAY Qty: 90 3RF Primary Care Provider: Sherice Campos Referrals: Sherice Campos DO [Primary Care Provider] - Print Language: Lithuanian
--- NOTE | 2024-06-06 18:25 | RAD_ITS ---
PROCEDURE: CHEST 1 VIEW (PORTABLE) REASON FOR EXAM: Cough TECHNIQUE: Frontal view of the chest. COMPARISON: 05/11/2024 FINDINGS: Single-chamber left chest pacemaker Heart size is moderately enlarged. There are atherosclerotic calcifications of the thoracic aorta. The lungs are clear. Degenerative changes are identified within the thoracic spine. RAD/Chest 1 View (Portable) IMPRESSION: Cardiomegaly with no acute pulmonary disease Reading Location: [facility]
[2024-06-06 18:49] LABS: Absolute Lymphocyte Count 0.47 X10^3/uL (0.83-4.51); Absolute Neutrophil Count 7.1 X10^3/uL (2.0-7.7); Basophil# 0.02 X10^3/uL; Basophil% 0.2 % (0-1); Hematocrit 23.4 % (40-54); Hemoglobin 7.5 g/dL (13.0-16.5); Lymphocyte # 0.47 X10^3/ul (0.83-4.51); Lymphocyte % 5.4 % (19-41); Mean Corp Hgb Conc 32.1 g/dL (32-36); Mean Corpuscular Hgb 25.3 pg (27.0-32.0); Mean Corpuscular Volume 78.8 fL (80-94); Mean Platelet Vol. 9.9 fl (6.2-12.0); Monocyte# 0.99 X10^3/uL; Monocyte% 11.4 % (0-10); NRBC Flagged by Analyzer 0 % (0-5); Neutrophil # 7.14 X10^3/uL (2.7-7.7); Neutrophil % 82.7 % (47-70); POSITIVE DIFFERENTIAL YES; Platelet Count 187 K/mm3 (150-450); RBC Distribution Width SD 52.8 fl (35.1-43.9); Red Blood Count 2.97 M/mm3 (4.6-6.2); White Blood Count 8.7 K/mm3 (4.4-11.0)
[2024-06-06 19:05] LABS: Bacteria 0 SEEN /hpf (None Seen); Mucous, Urine 0 SEEN /hpf (<or=2+)
[2024-06-06 19:06] LABS: Prothrombin Time (Protime)PT. > 120.0 SECONDS (11.7-14.9)
[2024-06-06 19:06] LABS: Color, Urine Yellow (Yellow); Glucose, Dipstick Normal (Normal); Ketone-Dipstick Negative (Negative); Leukocyte Esterase-Dipstick 25 /ul (Negative); Nitrite-Dipstick Negative (Negative); Occult Blood-Urine 50 /ul (Negative); Protein-Dipstick 30 mg/dl (Negative); Urine Bilirubin Dipstick Negative (Negative); Urine Clarity Sl. Cloudy (Clear); Urine Urobilinogen Normal (Normal)
[2024-06-06 19:08] LABS: International Normalized Ratio > 19.5
[2024-06-06 19:10] LABS: AST(SGOT) 486 U/L (<=37); Alanine Aminotransfer ALT/SGPT 359 U/L (<=46); Albumin, Serum 3.6 g/dL (3.4-4.8); Alkaline Phosphatase 129 U/L (40-129); Anion Gap 19 (5-15); BUN 99 mg/dL (4-19); BUN/Creat Ratio 33.4 RATIO (10-20); Bilirubin, Direct 0.57 mg/dL (0.00-0.30); Calcium 8.9 mg/dL (7.6-11.0); Chloride 94 mmol/L (96-108); Creatinine, Serum 2.97 mg/dL (0.70-1.20); EST Glomerular Filtration Rate 22 (>60); Globulin 2.8 g/dL (2.2-4.2); Glucose 152 mg/dL (70-99); Lipase 90 U/L (13-75); Potassium 5.2 mmol/L (3.3-5.1); Protein, Total 6.4 g/dL (5.9-8.4); Sodium Level 130 mmol/L (133-145); Total Bilirubin 0.88 mg/dL (0.00-1.30)
[2024-06-06 19:12] LABS: Amorphous Sediment 1+ URATE; Red Blood Cells-Urine 0-5 SEEN /hpf (0-5); Squamous Epithelial Cells - UA 0-5 SEEN /hpf (0-5); White Blood Cells 0-5 SEEN /hpf (0-5)
[2024-06-06] MEDS: Pantoprazole Sodium 80 MG in 0.9% Normal Saline (50mL Bag) 15 ML 420 MG IV BOLUS (19:45)
[2024-06-06] MEDS: Phytonadione (Vit K) 5 MG in 0.9% Normal Saline (50mL Bag) 50 ML 150 MG IV (19:50)
[2024-06-06 19:52] LABS: Lactic Acid 3.7 mmol/L (0.0-2.0)
--- NOTE | 2024-06-06 20:00 | PCM.HP.STD ---
[facility] - General General Date of Admission: 06/06/24 Date of Service: 06/06/24 Chief Complaint: Coffee-Ground Emesis and Black Stools. HPI Narrative RYAN COFFEY, is a 74 M with a past medical history of essential hypertension; on amlodipine, metoprolol, furosemide and spironolactone, hyperlipidemia; on atorvastatin, hypothyroidism; on levothyroxine, overweight; with BMI of 29.9 present on admission, former tobacco abuse (quit 2014), DM-2 of unknown control; on metformin, CAD; s/p MN with subsequent stent (2014) on clopidogrel, history of cardiac arrest with ventricular fibrillation, history of severe ischemic cardiomyopathy; with LVEF ~15% (02/2024) with AICD (2014), history of CVA, PVD, former history of EtOH abuse; with subsequent cirrhosis (quit ~2014), history of vertigo and history history of eye surgery (09/2023) who presents to [facility] ER complaining of coffee-ground emesis and black stools. Mr. Coffey reports his symptoms began approximately several days prior to admission with generally feeling weak overall with patient having stopped his warfarin for the past 3 days. Then yesterday he had 1 episode of coffee-ground emesis followed by 2 dark stools today with worsening abdominal bloating which exacerbated his weakness and caused shortness of breath so he decided to come in for further evaluation and treatment. Patient noted to be pale and mildly jaundiced. There were no reported fever, chills, visual changes, sore throat, ear pain, chest pain, palpitations, cough, dysuria, back pain, rash or headache. In the ER he was diagnosed with upper GI bleed with coffee-ground emesis and melanotic stools with suspected PUD with low hemoglobin of 7.5 g/dL and BUN of 99 mg/dL present on admission likely due to a combination of Critical Warfarin Toxicity with INR of greater than 19.5 present on admission complicated by Adverse Drug Reaction to clopidogrel in addition to MYRIAM; in the setting of CKD; stage IIIb due to Adverse Drug Reaction to loop diuretic causing Dehydration with associated Hyperkalemia of 5.2 mmol/L present on admission and Lactic Acidosis of 3.7 mmol/L present on admission suspected to be due to Adverse Drug Reaction to metformin compounded by Acute Transaminitis; with AST of 486 units/L and ALT of 359 units/L in the setting of known Cirrhosis due to former EtOH abuse in the setting of severe ischemic cardiomyopathy; with LVEF ~15% (02/2024) with AICD in place. He was then admitted to the ICU for ongoing care for status expected to extend beyond 2 midnights. [facility] Medical History Pure hypercholesterolemia Type 2 diabetes mellitus Presence of stent in coronary artery (~05/03/14) Cardiac arrest with ventricular fibrillation CVA (cerebral vascular accident) Essential hypertension Old myocardial infarction Atherosclerotic heart disease of [place] coronary artery without angina pectoris Hyperkalemia Other peripheral vascular disease half-way (current) use of anticoagulants HLD (hyperlipidemia) Cardiomyopathy, ischemic Abnormal serum enzyme level Dehydration Vertigo CAD (coronary artery disease) ARF (acute renal failure) Home Medications ?Medication ?Instructions ?Recorded ?Last Taken ?Type atorvastatin 80 mg tablet 80 mg PO QHS cholesterol #30 tabs 06/24/14 05/10/24 Rx clopidogrel 75 mg tablet 75 mg PO DAILY antiplatelet #30 06/24/14 05/10/24 Rx tabs metoprolol succinate 25 mg 25 mg PO DAILY heart/BP #30 tabs 06/24/14 05/10/24 Rx tablet,extended release 24 hr multivitamin with folic acid 400 1 tab PO DAILYCM supplement #0 tabs 06/24/14 05/10/24 Rx mcg tablet cholecalciferol (vitamin D3) 50 4,000 unit PO QDAY supplement 01/27/20 05/10/24 History mcg (2,000 unit) tablet metformin 850 mg tablet 850 mg PO BIDCM diabetes 01/27/20 05/10/24 History warfarin 6 mg tablet 5 mg PO 5XW blood thinner 07/19/20 06/04/24 History levothyroxine 25 mcg tablet 50 mcg PO QDAY thyroid 09/19/21 05/11/24 History amlodipine 2.5 mg tablet 2.5 mg PO DAILY blood pressure #90 01/28/24 05/10/24 Rx TABLETS spironolactone 25 mg tablet 25 mg PO QDAY water pill #90 tabs 03/12/24 05/11/24 Rx furosemide 40 mg tablet (Lasix) 40 mg PO QDAY #90 tabs 05/13/24 Unknown Rx Allergy/AdvReac Type Severity Reaction Status Date / Time metformin AdvReac Lactic Verified 06/06/24 21:16 acidosis Family History Father Hypertension Surgical History History of eye surgery (~09/2023) Status post percutaneous transluminal angioplasty ([employer]) with stent placement (~05/03/14) Presence of automatic cardioverter/defibrillator (AICD) Social History Smoking Status: Former smoker Tobacco: How many years used: 30 how long ago did patient quit smokin alcohol intake: never substance use type: does not use caffeine: No ROS ROS Narrative Review of Systems: Constitutional: Patient admits to generalized weakness with dyspnea on exertion but he denies fever or chills. Eyes: Patient denies changes in vision or discharge from eyes. ENT: Patient denies runny nose, sore throat or ear pain. Resp: Patient admits to dyspnea on exertion but he denies cough. CV: Patient admits to 3+ lower extremity edema but he denies chest pain, palpitations or heart racing. GI: Patient admits to nausea and vomiting with coffee-ground emesis and dark stools as per HPI. : Patient denies dysuria or hematuria. MSK: Patient denies arthralgias or myalgias. Skin: Patient admits to mild jaundice but he denies denies rash, abscess or wounds. Psych: Patient denies symptoms of uncontrolled depression or anxiety. Neuro: Patient denies headache, paresthesias or focal neurologic deficits. Allergy: Patient denies lip swelling, tongue swelling or urticaria. Hematology: Patient admits to coffee-ground emesis and melanotic stools consistent with UGIB. Endocrinology: Patient denies polyuria, polydipsia or polyphagia. 14 point review ROS otherwise negative except for positives noted above in HPI. Vital Signs Vital Signs Vital Signs: 06/06/24 17:39 06/06/24 19:47 Temperature 98.1 F Temperature Source Oral Pulse Rate 103 H 101 H Respiratory Rate 18 19 H Blood Pressure 115/73 113/68 Blood Pressure Mean 87 83 Pulse Ox 97 100 Oxygen Delivery Method Room Air Room Air Weight Weight: 179 lb 10.828 oz Body Mass Index (BMI) 29.9 Physical Exam Const alert, oriented x3, no apparent distress and average body habitus Constitutional Narrative: Patient noted to have pale appearance and slightly jaundiced. General Appearance: cooperative HEENT normocephalic, head/scalp atraumatic and hearing grossly normal bilaterally Eyes PERRL and EOMs intact bilaterally Eyes Narrative: Mild scleral icterus noted. Neck no lymphadenopathy and supple Resp normal respiratory effort, no retractions, no use of accessory muscles and clear to auscultation bilaterally Cardio regular rate and regular rhythm GI normal to inspection, nondistended, normoactive bowel sounds, soft to palpation, non-tender and non-distended Extremity Extremity Narrative: Still 3+ pitting edema noted symmetrically in bilateral lower extremities. Skin Skin Narrative: Patient has evidence of mild jaundice. Neuro oriented x3, CN's II-XII intact bilaterally, moves all extremities and no focal motor deficits Sensorium / Orientation: awake, alert, oriented to person, oriented to place and oriented to time Speech: speech normal Psych affect normal Results Medical Records Data Attestation: I reviewed the patient's medical records Lab / Micro Data Attestation: I reviewed the patient's lab results. 06/07/24 04:38 06/07/24 04:38 Labs: Laboratory Results - last 24 hr 06/06/24 18:08: Lactic Acid 3.7 H*, Blood Type A POSITIVE, Antibody Screen NEGATIVE 06/06/24 18:30: WBC 8.7, RBC 2.97 L, Hgb 7.5 L, Hct 23.4 L, MCV 78.8 L, MCH 25.3 L, MCHC 32.1, RDW Std Deviation 52.8 H, RDW Coeff of Ambrosio 19.0 H, Plt Count 187, MPV 9.9, Immature Gran % (Auto) 0.300, Neut % (Auto) 82.7 H, Lymph % (Auto) 5.4 L, [place] % (Auto) 11.4 H, Eos % (Auto) 0.0, Baso % (Auto) 0.2, Absolute Neuts (auto) 7.1, Absolute Lymphs (auto) 0.47 L, Nucleated RBC % 0, PT > 120.0 H, INR > 19.5 H*, Sodium 130 L, Potassium 5.2 H, Chloride Direct 94 L, Carbon Dioxide 17.0 L, Anion Gap 19 H, BUN 99 H, Creatinine 2.97 H, Estim Creat Clear Calc 22.10 L, Est GFR (MDRD) Non-Af 22 L, BUN/Creatinine Ratio 33.4 H, Glucose 152 H, Calcium 8.9, Total Bilirubin 0.88, Direct Bilirubin 0.57 H, AST 486 H, ALT 359 H, Alkaline Phosphatase 129, Total Protein 6.4, Albumin 3.6, Globulin 2.8, Lipase 90 H 06/06/24 19:00: Urine Color Yellow, Urine Clarity Sl. Cloudy, Urine pH 6.0, Ur Specific Sylvester 1.020, Urine Protein 30 H, Urine Glucose (UA) Normal, Urine Ketones Negative, Urine Occult Blood 50 H, Urine Nitrite Negative, Urine Bilirubin Negative, Urine Urobilinogen Normal, Ur Leukocyte Esterase 25 H, Urine RBC 0-5 SEEN, Urine WBC 0-5 SEEN, Ur Squamous Epith Cells 0-5 SEEN, Amorphous Sediment 1+ URATE, Urine Bacteria 0 SEEN, Urine Mucus 0 SEEN Micro: Microbiology 06/06/24 18:30 Stool Stool Occult Blood (TYRON) - Final Occult Blood Positive Imaging Radiology Impression Chest X-Ray 06/06/24 18:25 IMPRESSION: Cardiomegaly with no acute pulmonary disease Reading Location: [facility] Assessment & Plan Assessment/Plan (1) Acute upper GI bleed: (2) Anemia: QUALIFIERS: Anemia type: unspecified type Qualified Code(s): D64.9 - Anemia, unspecified (3) Warfarin toxicity: QUALIFIERS: Encounter type: initial encounter Injury intent: accidental or unintentional Qualified Code(s): T45.511A - Poisoning by anticoagulants, accidental (unintentional), initial encounter (4) Adverse drug reaction: QUALIFIERS: Encounter type: initial encounter Qualified Code(s): T50.905A - Adverse effect of unspecified drugs, medicaments and biological substances, initial encounter (5) MYRIAM (acute kidney injury): (6) CKD stage 3b, GFR 30-44 ml/min: (7) Hyperkalemia: (8) Lactic acidosis: (9) Transaminitis: (10) Cirrhosis: QUALIFIERS: Ascites presence: without ascites Hepatic cirrhosis type: alcoholic cirrhosis Qualified Code(s): K70.30 - Alcoholic cirrhosis of liver without ascites (11) Cardiomyopathy, ischemic: (12) Overweight (BMI 25.0-29.9): PLAN: Plan 1. Upper GI Bleed with coffee-ground emesis and melanotic stool consistent with suspected PUD with low hemoglobin of 7.5 g/dL and highly elevated BUN of 99 mg/dL present on admission - Admit to ICU. Keep strict n.p.o. and start pantoprazole IV drip continuous infusion. Give ondansetron IV as needed for nausea and vomiting. Give promethazine IM as needed for breakthrough nausea vomiting. Give morphine IV as needed for severe (level 6-10/10) pain. Type & Screen blood and transfuse for hemoglobin less than 7 g/dL. Finally, gastroenterology has already been contacted by the ER physician with plan for EGD in a.m. and with help appreciated in advance. 2. Critical Warfarin Toxicity with INR of >19.5 present on admission likely primarily precipitating #1 in addition to Adverse Drug Reaction to clopidogrel - Stop both warfarin and clopidogrel. Check INR daily to assess response to IV vitamin K to see if dose will need to be repeated. 3. MYRIAM; in the setting of CKD; stage IIIb due to suspected Adverse Drug Reaction to loop-diuretic causing Dehydration with elevated BUN/creatinine ratio of 33.4 present on admission complicating #1 & #2 - Give aggressive IVF and recheck renal indices daily to follow trend. We will attempt to avoid all potentially nephrotoxic medications to allow kidney function to recover. 4. Mild Hyperkalemia of 5.2 mmol/L and mild Hyponatremia of 130 mmol/L both present on admission compounding #1 - #3 - Noted. We will give copious IVF and recheck levels in AM to monitor levels. 5. Lactic acidosis of 3.7 mmol/L present on admission suspected to be due to Adverse Drug Reaction to metformin adding to the medical complexity of #1 - #4 - Stop metformin. Aggressive volume resuscitate and serialize lactates to follow trend. Metformin has been added to his list of allergies to prevent recurrence. 6. History of EtOH abuse; with subsequent cirrhosis with Acute Transaminitis; with AST of 486 units/L and ALT of 359 units/L - CT scan of the abdomen and pelvis was requested from the ER to assess liver. Check ammonia level to establish baseline. Serialize CMP to follow trend. 7. History of Severe Ischemic Cardiomyopathy; with LVEF ~15% (02/2024) with AICD (2015) in the setting of previous cardiac arrest due to ventricular fibrillation adding to the burden of disease outlined from #1 - #6 - Watch carefully for signs of volume overload. 8. Overweight; BMI of 29.9 this admission - Weight loss will be recommended. Check TSH. 9. Essential Hypertension - Hold scheduled oral antihypertensives in light of volume depleted state and MYRIAM. Give hydralazine IV as needed for systolic blood pressure greater than 160 mmHg. 10. Hyperlipidemia - Hold atorvastatin until patient can tolerate oral intake. 11. Hypothyroidism - Restart levothyroxine when safe to do so. 12. DM-2; of unknown control on metformin - Keep NPO. Check FSBS q. 6 hours plus lowest-intensity SSI. Check HgbA1c to objectively assess quality of diabetic control. 13. CAD; s/p MN with subsequent stent (2014) on clopidogrel - Clopidogrel held in light of #1 with suspected Adverse Drug Reaction contributing to #1. 14. History of CVA - Noted. 14. PVD - Stable. 15. History of vertigo - Stable with no complaints related to vertigo at this time. 16. History of eye surgery (09/2023) - Noted for the sake of completeness. 17. Former tobacco abuse (quit 2014) - Noted. 18. DVT prophylaxis - SCD's only in light of active hemorrhage outlined in #1. Total time: Approximately (but not less than) 75 minutes. Charges/Coding Visit Charges Inpatient E&M: 02843 Init Hosp L3
--- NOTE | 2024-06-06 20:01 | CT_ITS ---
PROCEDURE: ABDOMEN/PELVIS WITHOUT CONT REASON FOR EXAM: Abdominal pain TECHNIQUE: Abdomen and pelvis CT with intravenous contrast. COMPARISON: 05/11/2024 FINDINGS: Lung bases: Bilateral pleural effusions, [id number] with compressive airspace disease. Heart is enlarged Liver: Normal size. No mass. Gallbladder: Unremarkable. Spleen: Normal size. Pancreas: Unremarkable. Adrenals: Unremarkable. Kidneys: Unremarkable. Bladder: Unremarkable. Reproductive Organs: Prostate measures 3.8 cm. Bowel: Unremarkable. Appendix: Normal. Lymph nodes: No suspicious lymph node enlargement. Vasculature: Mild diffuse atherosclerotic calcifications are noted. Peritoneum / Retroperitoneum: Moderate ascites. Anasarca Bones: Unremarkable. Hernia: Bilateral fat containing inguinal hernias, [id number] with the left containing ascites. CT/Abdomen/Pelvis without Cont IMPRESSION: 1. Moderate ascites and anasarca 2. Moderate right and mild left pleural effusions with compressive airspace di sease. 3. Cardiomegaly 4. Mild prostatomegaly One or more dose reduction techniques were used (e.g., Automated exposure contr ol, adjustment of the mA and/or kV according to patient size, use of iterative reconstruction technique). Reading Location: [facility]
--- NOTE | 2024-06-06 20:42 | ED.RN ---
called report to Elana in ICU
--- NOTE | 2024-06-06 22:04 | CON.PCM.GI_ITS ---
HPI Consult Data Date of Consult: 06/06/24 HPI Narrative Reason for Consultation: GI bleed HPI Narrative: RYAN COFFEY, is a 74 M with a past medical history of former history of EtOH abuse; with subsequent cirrhosis (quit ~2014), who presented to [facility] ER complaining of coffee-ground emesis and black stools. Mr. Coffey reports his symptoms began approximately several days prior to admission with generally feeling weak overall with patient having stopped his warfarin for the past 3 days. Then yesterday he had 1 episode of coffee-ground emesis followed by 2 dark stools today with worsening abdominal bloating. In the ER he was diagnosed with upper GI bleed with coffee-ground emesis and melanotic stools with suspected PUD with low hemoglobin of 7.5 g/dL and BUN of 99 mg/dL present on admission likely due to a combination of Critical Warfarin Toxicity with INR of greater than 19.5. He was also noted to have AST of 486 units/L and ALT of 359 units/L in the setting of known Cirrhosis due to former EtOH abuse in the setting of severe ischemic cardiomyopathy; with LVEF ~15% (02/2024) with AICD in plac COUNT INCLUDES THE [facility] Medical History Pure hypercholesterolemia Type 2 diabetes mellitus Presence of stent in coronary artery (~05/03/14) Cardiac arrest with ventricular fibrillation CVA (cerebral vascular accident) Essential hypertension Old myocardial infarction Atherosclerotic heart disease of [place] coronary artery without angina pectoris Hyperkalemia Other peripheral vascular disease intermediate (current) use of anticoagulants HLD (hyperlipidemia) Cardiomyopathy, ischemic Abnormal serum enzyme level Dehydration Vertigo CAD (coronary artery disease) ARF (acute renal failure) Home Medications ?Medication ?Instructions ?Recorded ?Last Taken ?Type atorvastatin 80 mg tablet 80 mg PO QHS cholesterol #30 tabs 06/24/14 05/10/24 Rx clopidogrel 75 mg tablet 75 mg PO DAILY antiplatelet #30 06/24/14 05/10/24 Rx tabs metoprolol succinate 25 mg 25 mg PO DAILY heart/BP #30 tabs 06/24/14 05/10/24 Rx tablet,extended release 24 hr multivitamin with folic acid 400 1 tab PO DAILYCM supp lement #0 tabs 06/24/14 05/10/24 Rx mcg tablet cholecalciferol (vitamin D3) 50 4,000 unit PO QDAY sup plement 01/27/20 05/10/24 History mcg (2,000 unit) tablet metformin 850 mg tablet 850 mg PO BIDCM diabetes 05/10/24 History warfarin 6 mg tablet 5 mg PO 5XW blood thinner 06/04/24 History levothyroxine 25 mcg tablet 50 mcg PO QDAY thyroid 05/11/24 History amlodipine 2.5 mg tablet 2.5 mg PO DAILY blood pressu re #90 01/28/24 05/10/24 Rx TABLETS spironolactone 25 mg tablet 25 mg PO QDAY water pill # 90 tabs 03/12/24 05/11/24 Rx furosemide 40 mg tablet (Lasix) 40 mg PO QDAY #90 tabs 05/13/24 Unknown Rx Allergy/AdvReac Type Severity Reaction Status Date / Time metformin AdvReac Lactic Verified 06/07/24 15:13 acidosis Family History Father Hypertension Surgical History History of eye surgery (~09/2023) Status post percutaneous transluminal angioplasty ([employer]) with stent placement (~05/03/14) Presence of automatic cardioverter/defibrillator (AICD) Social History Smoking Status: Former smoker Tobacco: How many years used: 30 how long ago did patient quit smokin alcohol intake: never substance use type: does not use caffeine: No ROS Constitutional Constitutional: Denies fatigue, fever(s), poor appetite, weight gain or weight loss Gastrointestinal Gastrointestinal: Denies belching, bloating, change in bowel habits, change in stool character, chewing difficulty, coffee ground emesis, constipation, cramping, diarrhea, dyspepsia, dysphagia, early satiety, excessive flatus, fecal incontinence, heartburn, hematemesis, hematochezia, hemorrhoids, loose stools, melena, nausea, odynophagia, rectal bleeding, tenesmus, vomiting or weight changes Physical Exam Const alert, oriented x3, no apparent distress and healthy appearing General Appearance: cooperative GI normal to inspection, nondistended, normoactive bowel sounds, soft to palpation, non-tender and non-distended Percussion: normal to percussion Rectal Exam: deferred Lab / Micro Data 06/07/24 13:30 06/07/24 04:38 Labs: Laboratory Results - last 24 hr 06/06/24 18:08: Lactic Acid 3.7 H*, Blood Type A POSITIVE, Antibody Screen NEGATIVE, Crossmatch See Detail 06/06/24 18:30: WBC 8.7, RBC 2.97 L, Hgb 7.5 L, Hct 23.4 L, MCV 78.8 L, MCH 25.3 L, MCHC 32.1, RDW Std Deviation 52.8 H, RDW Coeff of Ambrosio 19.0 H, Plt Count 187, MPV 9.9, Immature Gran % (Auto) 0.300, Neut % (Auto) 82.7 H, Lymph % (Auto) 5.4 L, [place] % (Auto) 11.4 H, Eos % (Auto) 0.0, Baso % (Auto) 0.2, Absolute Neuts (auto) 7.1, Absolute Lymphs (auto) 0.47 L, Nucleated RBC % 0, PT > 120.0 H, INR > 19.5 H*, Sodium 130 L, Potassium 5.2 H, Chloride Direct 94 L, Carbon Dioxide 17.0 L, Anion Gap 19 H, BUN 99 H, Creatinine 2.97 H, Estim Creat Clear Calc 22.10 L, Est GFR (MDRD) Non-Af 22 L, BUN/Creatinine Ratio 33.4 H, Glucose 152 H, Hemoglobin A1c 6.6, Calcium 8.9, Total Bilirubin 0.88, Direct Bilirubin 0.57 H, AST 486 H, ALT 359 H, Alkaline Phosphatase 129, Total Protein 6.4, Albumin 3.6, Globulin 2.8, Lipase 90 H 06/06/24 19:00: Urine Color Yellow, Urine Clarity Sl. Cloudy, Urine pH 6.0, Ur Specific [place] 1.020, Urine Protein 30 H, Urine Glucose (UA) Normal, Urine Ketones Negative, Urine Occult Blood 50 H, Urine Nitrite Negative, Urine Bilirubin Negative, Urine Urobilinogen Normal, Ur Leukocyte Esterase 25 H, Urine RBC 0-5 SEEN, Urine WBC 0-5 SEEN, Ur Squamous Epith Cells 0-5 SEEN, Amorphous Sediment 1+ URATE, Urine Bacteria 0 SEEN, Urine Mucus 0 SEEN 06/06/24 21:45: Lactic Acid Cancelled, Magnesium 1.6, Iron 15 L, TIBC 309, Iron Saturation 5.0 L, Unsaturated IBC 294, Ferritin 41, Troponin T High Sens 57 H*, Vitamin B12 1576 H, TSH 11.800 H, Free T4 1.10, Free T3 pg/dL 1.1 L 06/06/24 23:40: Troponin T Hi Sens 2 Hr 63 H*, Troponin T Hi Sens 2Hr Delta 7 06/06/24 23:50: POC Glucose 145 H 06/07/24 02:02: WBC 7.4, RBC 2.55 L, Hgb 6.4 L, Hct 19.9 L, MCV 78.0 L, MCH 25.1 L, MCHC 32.2, RDW Std Deviation 51.5 H, RDW Coeff of Ambrosio 18.7 H, Plt Count 118 L , MPV 9.4, Immature Gran % (Auto) 0.400, Neut % (Auto) 78.9 H, Lymph % (Auto) 6.1 L, [place] % (Auto) 14.5 H, Eos % (Auto) 0.0, Baso % (Auto) 0.1, Absolute Neuts (auto) 5.8, Absolute Lymphs (auto) 0.45 L, Nucleated RBC % 0, Lactic Acid 2.5 H* , Troponin T Hi Sens 4Hr 61 H*, Troponin T Hi Sens 4Hr Delta 4 06/07/24 04:38: WBC 7.1, RBC 2.56 L, Hgb 6.5 L, Hct 20.0 L, MCV 78.1 L, MCH 25.4 L, MCHC 32.5, RDW Std Deviation 51.3 H, RDW Coeff of Ambrosio 18.6 H, Plt Count 125 L , MPV 9.7, Immature Gran % (Auto) 0.600, Neut % (Auto) 77.9 H, Lymph % (Auto) 7.8 L, [place] % (Auto) 13.4 H, Eos % (Auto) 0.0, Baso % (Auto) 0.3, Absolute Neuts (auto) 5.5, Absolute Lymphs (auto) 0.55 L, Nucleated RBC % 0, PT 41.3 H, INR 4.2 H*, Sodium 132 L, Potassium 4.2, Chloride Direct 97, Carbon Dioxide 20.5 L, Anion Gap 14, BUN 100 H, Creatinine 2.78 H, Estim Creat Clear Calc 23.26 L, Est GFR (MDRD) Non-Af 23 L, BUN/Creatinine Ratio 35.9 H, Glucose 153 H, Calcium 8.6, Phosphorus 3.4, Total Bilirubin 0.99, AST 443 H, ALT 351 H, Alkaline Phosphatase 117, Total Protein 6.0, Albumin 3.4, Globulin 2.6, Albumin/Globulin Ratio 1.3 06/07/24 10:08: Lactic Acid 1.5, Ammonia 12.7 L 06/07/24 11:02: POC Glucose 128 H 06/07/24 13:30: Hgb 7.5 L, Hct 23.0 L Micro: Microbiology 06/06/24 18:30 Stool Stool Occult Blood ([facility]ON) - Final Occult Blood Positive Imaging Radiology Impression Chest X-Ray 06/06/24 18:25 IMPRESSION: Cardiomegaly with no acute pulmonary disease Reading Location: [facility] Abdomen/Pelvis CT 06/06/24 20:01 IMPRESSION: 1. Moderate ascites and anasarca 2. Moderate right and mild left pleural effusions with compressive airspace disease. 3. Cardiomegaly 4. Mild prostatomegaly One or more dose reduction techniques were used (e.g., Automated exposure control, adjustment of the mA and/or kV according to patient size, use of iterative reconstruction technique). Reading Location: [facility] Abdomen Ultrasound 06/07/24 09:48 IMPRESSION: 1. Fatty infiltration of the liver. 2. Ascites. Reading Location[facility] Assessment & Plan Assessment/Plan (1) Acute upper GI bleed: (2) Anemia: QUALIFIERS: Anemia type: unspecified type Qualified Code(s): D 64.9 - Anemia, unspecified (3) Warfarin toxicity: QUALIFIERS: Encounter type: initial encounter Injury intent: a ccidental or unintentional Qualified Code(s): T45.511A - Poisoning by anticoagulants, accidental (unintentional), initial encounter (4) MYRIAM (acute kidney injury): (5) CKD stage 3b, GFR 30-44 ml/min: (6) Hyperkalemia: (7) Lactic acidosis: (8) Cirrhosis: QUALIFIERS: Hepatic cirrhosis type: alcoholic cirrhosis Ascites presence: without ascites Qualified Code(s): K70.30 - Alcoholic cirrhosis of liver without ascites (9) Cardiomyopathy, ischemic: PLAN: Plan 74-year-old gentleman was admitted with 3 dark stool, bloating, 1 dark-colored vomiting Upper GI bleed complicated with acute blood loss anemia on chronic anemia exacerbated by warfarin and Plavix: Given the diagnosis does include peptic ulcer disease, variceal bleeding. Patient is admitted in ICU. He was found severe anemia H&H 6.4/20% x 2. Baseline hemoglobin stays between 9 to 10 g% last 1 year. Had 1 unit of PRBC transfusion. Pantoprazole IV drip. He will undergo an upper endoscopy to evaluate his upper GI tract. He was explained alternatives, appointment physical therapy, infection, blood pressure therapy . He will have an ASA 3. Charges/Coding Visit Charges Inpatient E&M: 39241 Init Hosp L3
[2024-06-06] MEDS: Pantoprazole Sodium 80 MG in 0.9% Normal Saline (100mL Bag) 80 ML 10 MG CONT INF (22:11)
[2024-06-06] MEDS: 0.9% Normal Saline (1000mL) 1,000 ML 100 ML IV (22:11)
[2024-06-06 23:03] LABS: Troponin T High Sensitivity 57 ng/L (<=22)
[2024-06-06] MEDS: Morphine 2 MG/ML Syringe 1 MG IV (23:50)
[2024-06-06 23:51] LABS: Ferritin 41 ng/mL (37-417); Vitamin B12 1576 pg/mL (180-914)
[2024-06-07] VITALS (31 sets, daily range): BP systolic 77–160; BP diastolic 43–136; PULSE 95–113; RESP 13–21; TEMP 36.1–36.8; O2SAT 10–100; BMI 29.9
[2024-06-07 00:08] LABS: Bedside Glucose 145 mg/dL (74-106)
[2024-06-07 00:12] LABS: Hemoglobin A1c 6.6 % (<=5.6)
[2024-06-07 00:22] LABS: TROPONIN VARIANCE 2 HR 7; Troponin T High Sens 2 HR 63 ng/L (<=22)
[2024-06-07 02:05] LABS: Iron 15 ug/dL (65-175); Iron Binding Capacity,Total 309 ug/dL (250-450); Iron Binding Capacity,Unsat 294 ug/dL (228-428); Magnesium 1.6 mg/dL (1.5-2.2)
[2024-06-07 02:13] LABS: Free T3 1.1 pg/mL (2.18-3.98)
[2024-06-07 02:13] LABS: Absolute Lymphocyte Count 0.45 X10^3/uL (0.83-4.51); Absolute Neutrophil Count 5.8 X10^3/uL (2.0-7.7); Basophil# 0.01 X10^3/uL; Basophil% 0.1 % (0-1); Hematocrit 19.9 % (40-54); Hemoglobin 6.4 g/dL (13.0-16.5); Lymphocyte # 0.45 X10^3/ul (0.83-4.51); Lymphocyte % 6.1 % (19-41); Mean Corp Hgb Conc 32.2 g/dL (32-36); Mean Corpuscular Hgb 25.1 pg (27.0-32.0); Mean Platelet Vol. 9.4 fl (6.2-12.0); Monocyte# 1.07 X10^3/uL; Monocyte% 14.5 % (0-10); NRBC Flagged by Analyzer 0 % (0-5); Neutrophil # 5.81 X10^3/uL (2.7-7.7); Neutrophil % 78.9 % (47-70); POSITIVE DIFFERENTIAL YES; Platelet Count 118 K/mm3 (150-450); RBC Distribution Width CV 18.7 % (11.6-14.6); RBC Distribution Width SD 51.5 fl (35.1-43.9); Red Blood Count 2.55 M/mm3 (4.6-6.2); White Blood Count 7.4 K/mm3 (4.4-11.0)
[2024-06-07 02:47] LABS: TROPONIN VARIANCE 4 HR 4; Troponin T High Sens 4 HR 61 ng/L (<=22)
[2024-06-07 04:45] LABS: Absolute Lymphocyte Count 0.55 X10^3/uL (0.83-4.51); Absolute Neutrophil Count 5.5 X10^3/uL (2.0-7.7); Basophil# 0.02 X10^3/uL; Basophil% 0.3 % (0-1); Hemoglobin 6.5 g/dL (13.0-16.5); Lymphocyte # 0.55 X10^3/ul (0.83-4.51); Lymphocyte % 7.8 % (19-41); Mean Corp Hgb Conc 32.5 g/dL (32-36); Mean Corpuscular Hgb 25.4 pg (27.0-32.0); Mean Corpuscular Volume 78.1 fL (80-94); Mean Platelet Vol. 9.7 fl (6.2-12.0); Monocyte# 0.95 X10^3/uL; Monocyte% 13.4 % (0-10); NRBC Flagged by Analyzer 0 % (0-5); Neutrophil # 5.51 X10^3/uL (2.7-7.7); Neutrophil % 77.9 % (47-70); POSITIVE DIFFERENTIAL YES; Platelet Count 125 K/mm3 (150-450); RBC Distribution Width CV 18.6 % (11.6-14.6); RBC Distribution Width SD 51.3 fl (35.1-43.9); Red Blood Count 2.56 M/mm3 (4.6-6.2); White Blood Count 7.1 K/mm3 (4.4-11.0)
[2024-06-07 04:55] LABS: Prothrombin Time (Protime)PT. 41.3 SECONDS (11.7-14.9)
[2024-06-07 05:04] LABS: ALB/GLOB Ratio 1.3 RATIO (0.9-2.4); AST(SGOT) 443 U/L (<=37); Alanine Aminotransfer ALT/SGPT 351 U/L (<=46); Albumin, Serum 3.4 g/dL (3.4-4.8); Alkaline Phosphatase 117 U/L (40-129); Anion Gap 14 (5-15); BUN 100 mg/dL (4-19); BUN/Creat Ratio 35.9 RATIO (10-20); Calcium 8.6 mg/dL (7.6-11.0); Carbon Dioxide 20.5 mmol/L (22.0-29.0); Chloride 97 mmol/L (96-108); Creatinine, Serum 2.78 mg/dL (0.70-1.20); EST Glomerular Filtration Rate 23 (>60); Estimated Creatinine Clearance 23.26 ml/min (50-250); Globulin 2.6 g/dL (2.2-4.2); Glucose 153 mg/dL (70-99); Phosphorus 3.4 mg/dL (2.7-4.5); Potassium 4.2 mmol/L (3.3-5.1); Sodium Level 132 mmol/L (133-145); Total Bilirubin 0.99 mg/dL (0.00-1.30)
[2024-06-07 05:09] LABS: International Normalized Ratio 4.2
[2024-06-07] MEDS: Pantoprazole Sodium 80 MG in 0.9% Normal Saline (100mL Bag) 80 ML 10 MG CONT INF ×2 (07:26→18:21)
--- NOTE | 2024-06-07 07:51 | PCM.PN.HOSP ---
Reason for Visit Reason for Visit: Diagnoses Anemia, unspecified (06/06/24) Overweight (06/06/24) Acidosis, unspecified (06/06/24) Hyperkalemia (06/06/24) Ischemic cardiomyopathy (06/06/24) Alcoholic cirrhosis of liver without ascites (06/06/24) Gastrointestinal hemorrhage, unspecified (06/06/24) Acute kidney failure, unspecified (06/06/24) Chronic kidney disease, stage 3b (06/06/24) Elevation of levels of liver transaminase levels (06/06/24) Poisoning by anticoagulants, accidental (unintentional), initial encounter (06/06/24) Adverse effect of unspecified drugs, medicaments and biological substances, initial encounter (06/06/24) Objective Data Objective Data Vital Signs: Vital Signs Temp Pulse Resp BP Pulse Ox O2 Del Method O2 Flow Rate 98.2 F 100 16 118/79 100 Nasal Cannula 2 06/07/24 04:49 06/07/24 06:00 06/07/24 06:00 06/07/24 06:00 06/07/24 06:00 06/07/24 06:00 06/07/24 06:00 Oxygen Flow Rate (L/min) 2 Oxygen Delivery Method Nasal Cannula Weight: 179 lb 14.355 oz Body Mass Index (BMI) 29.9 Intake & Output: Intake and Output for Last 24 Hours 06/05/24 06/06/24 06/07/24 23:59 23:59 23:59 Intake Total 85.5 / 85.5 92.5 / 92.5 Output Total 600 / 600 Balance 85.5 / 85.5 -507.5 / -507.5 Lab / Micro Data 06/07/24 04:38 06/07/24 04:38 Labs: Laboratory Results - last 24 hr 06/06/24 18:08: Lactic Acid 3.7 H*, Blood Type A POSITIVE, Antibody Screen NEGATIVE, Crossmatch See Detail 06/06/24 18:30: WBC 8.7, RBC 2.97 L, Hgb 7.5 L, Hct 23.4 L, MCV 78.8 L, MCH 25.3 L, MCHC 32.1, RDW Std Deviation 52.8 H, RDW Coeff of Ambrosio 19.0 H, Plt Count 187, MPV 9.9, Immature Gran % (Auto) 0.300, Neut % (Auto) 82.7 H, Lymph % (Auto) 5.4 L, [place] % (Auto) 11.4 H, Eos % (Auto) 0.0, Baso % (Auto) 0.2, Absolute Neuts (auto) 7.1, Absolute Lymphs (auto) 0.47 L, Nucleated RBC % 0, PT > 120.0 H, INR > 19.5 H*, Sodium 130 L, Potassium 5.2 H, Chloride Direct 94 L, Carbon Dioxide 17.0 L, Anion Gap 19 H, BUN 99 H, Creatinine 2.97 H, Estim Creat Clear Calc 22.10 L, Est GFR (MDRD) Non-Af 22 L, BUN/Creatinine Ratio 33.4 H, Glucose 152 H, Hemoglobin A1c 6.6, Calcium 8.9, Total Bilirubin 0.88, Direct Bilirubin 0.57 H, AST 486 H, ALT 359 H, Alkaline Phosphatase 129, Total Protein 6.4, Albumin 3.6, Globulin 2.8, Lipase 90 H 06/06/24 19:00: Urine Color Yellow, Urine Clarity Sl. Cloudy, Urine pH 6.0, Ur Specific [place] 1.020, Urine Protein 30 H, Urine Glucose (UA) Normal, Urine Ketones Negative, Urine Occult Blood 50 H, Urine Nitrite Negative, Urine Bilirubin Negative, Urine Urobilinogen Normal, Ur Leukocyte Esterase 25 H, Urine RBC 0-5 SEEN, Urine WBC 0-5 SEEN, Ur Squamous Epith Cells 0-5 SEEN, Amorphous Sediment 1+ URATE, Urine Bacteria 0 SEEN, Urine Mucus 0 SEEN 06/06/24 21:45: Lactic Acid Cancelled, Magnesium 1.6, Iron 15 L, TIBC 309, Iron Saturation 5.0 L, Unsaturated IBC 294, Ferritin 41, Troponin T High Sens 57 H*, Vitamin B12 1576 H, TSH 11.800 H, Free T4 1.10, Free T3 pg/dL 1.1 L 06/06/24 23:40: Troponin T Hi Sens 2 Hr 63 H*, Troponin T Hi Sens 2Hr Delta 7 06/06/24 23:50: POC Glucose 145 H 06/07/24 02:02: WBC 7.4, RBC 2.55 L, Hgb 6.4 L, Hct 19.9 L, MCV 78.0 L, MCH 25.1 L, MCHC 32.2, RDW Std Deviation 51.5 H, RDW Coeff of Ambrosio 18.7 H, Plt Count 118 L, MPV 9.4, Immature Gran % (Auto) 0.400, Neut % (Auto) 78.9 H, Lymph % (Auto) 6.1 L, [place] % (Auto) 14.5 H, Eos % (Auto) 0.0, Baso % (Auto) 0.1, Absolute Neuts (auto) 5.8, Absolute Lymphs (auto) 0.45 L, Nucleated RBC % 0, Lactic Acid 2.5 H*, Troponin T Hi Sens 4Hr 61 H*, Troponin T Hi Sens 4Hr Delta 4 06/07/24 04:38: WBC 7.1, RBC 2.56 L, Hgb 6.5 L, Hct 20.0 L, MCV 78.1 L, MCH 25.4 L, MCHC 32.5, RDW Std Deviation 51.3 H, RDW Coeff of Ambrosio 18.6 H, Plt Count 125 L, MPV 9.7, Immature Gran % (Auto) 0.600, Neut % (Auto) 77.9 H, Lymph % (Auto) 7.8 L, [place] % (Auto) 13.4 H, Eos % (Auto) 0.0, Baso % (Auto) 0.3, Absolute Neuts (auto) 5.5, Absolute Lymphs (auto) 0.55 L, Nucleated RBC % 0, PT 41.3 H, INR 4.2 H*, Sodium 132 L, Potassium 4.2, Chloride Direct 97, Carbon Dioxide 20.5 L, Anion Gap 14, BUN 100 H, Creatinine 2.78 H, Estim Creat Clear Calc 23.26 L, Est GFR (MDRD) Non-Af 23 L, BUN/Creatinine Ratio 35.9 H, Glucose 153 H, Calcium 8.6, Phosphorus 3.4, Total Bilirubin 0.99, AST 443 H, ALT 351 H, Alkaline Phosphatase 117, Total Protein 6.0, Albumin 3.4, Globulin 2.6, Albumin/Globulin Ratio 1.3 Micro: Microbiology 06/06/24 18:30 Stool Stool Occult Blood ([facility]ON) - Final Occult Blood Positive Radiography Diagnostic Testing: Radiology Impression Chest X-Ray 06/06/24 18:25 IMPRESSION: Cardiomegaly with no acute pulmonary disease Reading Location: [facility] Abdomen/Pelvis CT 06/06/24 20:01 IMPRESSION: 1. Moderate ascites and anasarca 2. Moderate right and mild left pleural effusions with compressive airspace disease. 3. Cardiomegaly 4. Mild prostatomegaly One or more dose reduction techniques were used (e.g., Automated exposure control, adjustment of the mA and/or kV according to patient size, use of iterative reconstruction technique). Reading Location: [facility] Physical Exam Narrative Seen and examined. Patient is stated that he has abdominal distention for about 2 to 3 weeks. No abdominal pain. Had 1 episode of dark red vomiting/hematemesis and 3-4 episodes of melena in the last 1 day. Physical exam General: Alert, Oriented x3, Cooperative HEENT: Atraumatic, PERRLA, EOMI, Normocephalic Oral: No Gingival or Mucosal Lesions/ Ulcerations Neck: Supple, No JVD, Negative Carotid Bruits Chest wall/Lungs: Air entry diminished in bilateral lung bases. No crepitation/rhonchi Cardiovascular: Regular rate, Regular Rhythm, Normal S1, Normal S2, systolic murmur Abdomen: Bowel Sounds Present, nontender, soft mild abdominal distention, shifting dullness present apicitis : No dysuria. No renal angle tenderness. No suprapubic tenderness. Extremities: Bilateral 2+ below thigh pitting edema, Capillary Refill Less than 3 Seconds Skin: No rashes, No breakdown Musculoskeletal: No Tenderness to Palpation of Joints or Extremities Neurological: Cranial nerves II-XII grossly intact, DTR 2+/4. No acute focal neurological deficit. Psych/Mental Status: Flat affect Assessment & Plan Assessment/Plan (1) Acute upper GI bleed: (2) Anemia: QUALIFIERS: Anemia type: unspecified type Qualified Code(s): D64.9 - Anemia, unspecified (3) Warfarin toxicity: QUALIFIERS: Encounter type: initial encounter Injury intent: accidental or unintentional Qualified Code(s): T45.511A - Poisoning by anticoagulants, accidental (unintentional), initial encounter (4) MYRIAM (acute kidney injury): (5) CKD stage 3b, GFR 30-44 ml/min: (6) Hyperkalemia: (7) Lactic acidosis: (8) Cirrhosis: QUALIFIERS: Ascites presence: without ascites Hepatic cirrhosis type: alcoholic cirrhosis Qualified Code(s): K70.30 - Alcoholic cirrhosis of liver without ascites (9) Cardiomyopathy, ischemic: PLAN: Plan 74-year-old gentleman was admitted with 3 dark stool, bloating, 1 dark-colored vomiting along with generalized weakness and mild shortness of breath,started 24 hours ago. The patient is stated he is not taking Coumadin for last 3 days 1. Upper GI bleed complicated with acute blood loss anemia on chronic anemia exacerbated by warfarin and Plavix: Patient is admitted in ICU. He was found severe anemia H&H 6.4/20% x 2. Baseline hemoglobin stays between 9 to 10 g% last 1 year. Had 1 unit of PRBC transfusion. GI is consulted. NPO. Pantoprazole IV drip 2. Warfarin toxicity: INR was 1 more than 19.5. IV vitamin K was given. Repeat INR 4.2 3. MYRIAM on CKD stage IIIb: Patient on loop diuretic. With IV fluid restriction. Admitting BUNs/creatinine 99/3.0 AST is around 1.85-2.04. 4. Moderate ascites, bilateral pleural effusion and bilateral lower extremity edema: CT abdomen medially reviewed shows moderate right pleural effusion, small left pleural effusion, moderate ascites. Liver contour does not look nodular but small in size. Will need ultrasound-guided paracentesis. Kidneys unremarkable. Right upper quadrant sonogram ordered CT Abdo also reported spleen pancreas gallbladder, adrenals normal. Lactic acid elevated probably due to intravascular volume deficit/hypovolemia complicated with metformin. 5 Mild Hyperkalemia of 5.2 mmol/L and mild Hyponatremia of 130 mmol/L: Repeat sodium 132. Serum potassium repeat normal 6. Acute liver injury with history of EtOH abuse: Patient liver chemistry was normal in May 11, 2024. Admitted with ALT 359, AST 486. Direct bilirubin and total bilirubin normal. Serum albumin low normal, 3.6 7. CAD status post cardiac, chronic severe systolic heart failure with LVEF ~15% (02/2024) with AICD (2014) in the setting of previous cardiac arrest due to ventricular fibrillation - Watch carefully for signs of volume overload. Quit smoking in 2014. Patient also has history of CVA and peripheral arterial 8. Overweight; BMI of 29.9 this admission -may be fluid weight 9. Essential Hypertension - Hold scheduled oral antihypertensives in light of volume depleted state and MYRIAM. Hydralazine as needed 10. Hyperlipidemia - Hold atorvastatin until patient can tolerate oral intake. 11. Hypothyroidism - TSH 11.8. Free T4 1.1 Normal. Free T3 low. Slightly increase the dose of levothyroxine 12. DM-2; on metformin - Keep NPO. Accu-Chek before meals and at bedtime with Humalog sliding scale coverage and hypoglycemia protocol. DVT prophylaxis - SCD's Charges/Coding Visit Charges Inpatient E&M: 15493 Subs Hosp L3
--- NOTE | 2024-06-07 09:48 | US_ITS ---
EXAM: US Abdomen Limited, Right Upper Quadrant CLINICAL INDICATION: TECHNIQUE: Real-time ultrasound of the right upper quadrant with image documentation. COMPARISON: No relevant prior studies available. FINDINGS: LIVER: Fatty infiltration of the liver. Liver measures up to 14.7 cm. No intrahepatic bile duct dilation. GALLBLADDER: Negative Louis's sign was reported by the commercial housekeeper. No gallstones. COMMON BILE DUCT: Unremarkable as visualized. No stones. No dilation. Common bile duct measures 0.34 cm in diameter. PANCREAS: Pancreas not well visualized. RIGHT KIDNEY: Unremarkable. No stones. No hydronephrosis. The right kidney measures 10.5 x 5.4 x 5.3 cm. FREE FLUID: Ascites. US/Abdomen Limited IMPRESSION: 1. Fatty infiltration of the liver. 2. Ascites. Reading [facility]
[2024-06-07] MEDS: 0.9% Normal Saline (1000mL) 1,000 ML 75 ML IV (09:57)
--- NOTE | 2024-06-07 10:20 | CASEMGMT ---
CASANDRA BARAKAT Readmission Note Previous Admission: 05/11/24-05/13/24 Diagnosis: Heart failure exac DC Disposition: Home Current Admission: 06/06/24 Current Diagnosis: UGIB with coffee ground emesis with melena with coumadin toxicity Pt presents with dark vomit and stools at home. Pt with INR 19.5 which is down to 4.2 now with vitamin K administration. CASANDRA BARAKAT into pt room, pt sitting up in bed in no distress with oxygen on receiving blood products. Pt reports he couldn't swallow food or water at home and couldn't urinate at home. Pt had stopped his coumadin for 3 days due to this. Pt states he was very weak and started using a walker. Pt reports he had picked up his new meds from last hospital stay and was taking as ordered. Pt had not followed up with PCP as he states that he sees other doctors. Pt reports he has not had his PT/INR drawn since the last hospital stay. Pt states manages his coumadin. Instructed importance of seeing for this reason. Pt verbalized understanding. Pt typically is indep at home and does not use a device. Discussed with pt having HHC at dc this time for SN for education and monitoring, pt currently denies need for this. He is aware that he could also have therapy should he need it at dc to try to get back to his baseline functional status. Pt will think about this and CASANDRA BARAKAT to follow. Pt to have EGD this date and GI c/s. DC Plan: Home vs Home with HHC pending course of hospitalization
[2024-06-07 10:48] LABS: Lactic Acid 1.5 mmol/L (0.0-2.0)
[2024-06-07 10:50] LABS: Ammonia 12.7 umol/L (16-60)
[2024-06-07 11:28] LABS: Bedside Glucose 128 mg/dL (74-106)
[2024-06-07 13:42] LABS: Hemoglobin 7.5 g/dL (13.0-16.5)
--- NOTE | 2024-06-07 14:53 | PCM.PRE.AN2 ---
ASA Classification* ASA Classification ASA Classification: 4 and E Assessment & Plan Anesthesia* Anesthesia Assessment Anesthesia Assessment: Discussed sedation and/or anesthesia options, risks, benefits, and alternatives with patient/parents/legal guardian/POA. Questions invited. The patient/parents/legal guardian/POA seems to understand and agrees to proceed with anesthesia plan. Reviewed the physical assessment, medical history, allergy history and patient home medications list prior to surgery/procedure/anesthetic and documented any changes. Performed airway and anesthesia risk assessments. Anesthesia Type Anesthesia Type: MAC (EF 15% with AICD and ischemic cardiomyopathy and severe anemia) Anesthesia Focused Assessment* Temperature: 97.8 F Pulse Rate: 97 Blood Pressure: 126/77 Respiratory Rate: 15 Pulse Ox: 98 Oxygen Flow Rate (L/min): 2 Airway Assessment Mouth opens: >3 cm Mallampati Score: II Focused Labs Anesthesia Preop lab: CBC WBC 7.1 K/mm3 (4.4-11.0) 06/07/24 04:38 06/07/24 RBC 2.56 M/mm3 (4.6-6.2) L 06/07/24 04:38 06/07/24 Hgb 7.5 g/dL (13.0-16.5) L 06/07/24 13:30 06/07/24 Hct 23.0 % (40-54) L 06/07/24 13:30 06/07/24 Plt Count 125 K/mm3 (150-450) L 06/07/24 04:38 06/07/24 CHEMISTRY Potassium 4.2 mmol/L (3.3-5.1) 06/07/24 04:38 06/07/24 Sodium 132 mmol/L (133-145) L 06/07/24 04:38 06/07/24 Magnesium 1.6 mg/dL (1.5-2.2) 06/06/24 21:45 06/06/24 Phosphorus 3.4 mg/dL (2.7-4.5) 06/07/24 04:38 06/07/24 BUN 100 mg/dL (4-19) H 06/07/24 04:38 06/07/24 Creatinine 2.78 mg/dL (0.70-1.20) H 06/07/24 04:38 06/07/24 Glucose 153 mg/dL (70-99) H 06/07/24 04:38 06/07/24 POC Glucose 128 mg/dL (74-106) H 06/07/24 11:02 06/07/24 TSH 11.800 uIU/mL (0.300-4.200) H 06/06/24 21:45 06/06/24 COAG PT 41.3 SECONDS (11.7-14.9) H 06/07/24 04:38 06/07/24 Pre-Assessment Diagnosis/Proposed Procedure Planned Operative Procedure(s): EGD Anesthesia History 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 When Was Last Pacemaker Check QUESTION #4 FULL TEXT: You/Your Family Experience fever (hyperthermia) with Anesthesia Last Oral Intake Last Oral intake: Last Oral Intake NPO since Meds taken in AM with sips of water? Meds patient instructed to take am of surgery PONV PONV - food service hotel runner: PONV - food service hotel runner Female HX of Motion Sickness HX of N/V After Surgery Non-Smoker Duration of Surgery greater than 60 minutes Number of Risk Factors PONV Score Height & Weight Height & Weight: Anesthesia: Height & Weight Height 5 ft 5 in 06/07/24 09:38 Weight: 81.6 kg 06/07/24 09:38 Body Mass Index (BMI) 29.9 06/07/24 05:40 Respiratory Assessment Respiratory Assessment - food service hotel runner: Respiratory Tract Infection Hx - food service hotel runner Hx Respiratory Tract Infection STOP Sleep Apnea STOP Sleep Apnea - food service hotel runner: STOP Sleep Apnea - food service hotel runner Hx Hypertension No 06/06/24 21:22 Hx Sleep Apnea No 06/06/24 21:22 CPAP No 06/06/24 21:22 BIPAP No 06/06/24 21:22 Do you snore loudly (louder No 06/06/24 21:22 than talking or can be heard Do you often feel tired/ No 06/06/24 21:22 fatigued/ sleepy during daytime? Has anyone observed you stop No 06/06/24 21:22 breathing during sleep? STOP Results Negative 06/06/24 21:22 QUESTION #5 FULL TEXT : Do you snore loudly (louder than talking or can be heard through closed doors)? 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 Specify any problems Hx of Preganancy in last 3 N/A 06/06/24 21:22 Months Nurse Filling Out Transfusion ALBERTO 06/06/24 21:22 & Questions: Date: 06/06/24 06/06/24 21:22 Time: 21:36 06/06/24 21:22 Patient unable to answer at this time (ie. confused, unrespo /Reproduction History /Reproductive History - food service hotel runner: /Reproductive Hx- food service hotel runner Hx Now Gestational Age (in weeks): EDC: Hx Hx Para Hx Section SAB Active Medications Active Medications: Current Medications Generic Name Dose Route Start Last Admin Trade Name Freq PRN Reason Stop Dose Admin Acetaminophen 650 mg 06/06/24 21:22 Acetaminophen 650 Mg Suppository RC Q6H PRN PRN Pain 1-5/10 or Fever Glucagon 1 mg 06/06/24 21:22 Glucagon 1 Mg/Ml Syringe IM X1 PRN HYPOGLYCEMIA Protocol Pantoprazole Sodium 80 mg/ 100 mls @ 10 mls/hr 06/06/24 21:22 06/07/24 07:26 Sodium Chloride CONT INF 10 mls/hr Q10H MELLISA Administration Sodium Chloride 1,000 mls @ 75 mls/hr 06/06/24 21:22 06/07/24 09:57 IV 06/07/24 19:50 75 mls/hr .[id number] MELLISA Administration Protocol Dextrose 250 mls @ 0 mls/hr 06/06/24 21:22 Dextrose 10%-Water IV .Q0M PRN HYPOGLYCEMIA Protocol As Directed Sodium Chloride 100 mls @ 15 mls/hr 06/06/24 21:22 IV .Q6H40M PRN Saline Flush Sodium Chloride 100 mls @ 15 mls/hr 06/06/24 21:22 IV .Q6H40M PRN Additional IVPB Infusion Dextrose 250 mls @ 0 mls/hr 06/07/24 09:53 Dextrose 10%-Water IV .Q0M PRN HYPOGLYCEMIA Protocol As Directed Insulin Human Lispro 0 unit 06/07/24 00:00 06/07/24 11:05 Insulin Lispro 100 Unit/Ml Insuln.Pen SC Not Given Q6 MELLISA Protocol Morphine Sulfate 1 mg 06/06/24 21:22 06/06/24 23:50 Morphine 2 Mg/Ml Syringe IV 1 mg Q4H PRN PRN Administration Pain Score 6-10 Ondansetron HCl 4 mg 06/06/24 21:22 Ondansetron 4 Mg/2 Ml Vial IV Q6H PRN PRN NAUSEA/VOMITING Sodium Chloride 10 - 40 ml 06/06/24 21:22 0.9% Saline Lock 10 Ml Syringe IV UD PRN SALINE FLUSH PFSH Medical History Pure hypercholesterolemia Type 2 diabetes mellitus Presence of stent in coronary artery (~05/03/14) Cardiac arrest with ventricular fibrillation CVA (cerebral vascular accident) Essential hypertension Old myocardial infarction Atherosclerotic heart disease of [place] coronary artery without angina pectoris Hyperkalemia 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 HLD (hyperlipidemia) Cardiomyopathy, ischemic Abnormal serum enzyme level Dehydration Vertigo CAD (coronary artery disease) ARF (acute renal failure) Home Medications ?Medication ?Instructions ?Recorded ?Last Taken ?Type atorvastatin 80 mg tablet 80 mg PO QHS cholesterol #30 tabs 06/24/14 05/10/24 Rx clopidogrel 75 mg tablet 75 mg PO DAILY antiplatelet #30 03/20/15 02/03/25 Rx tabs metoprolol succinate 25 mg 25 mg PO DAILY heart/BP #30 tabs 06/24/14 05/10/24 Rx tablet,extended release 24 hr multivitamin with folic acid 400 1 tab PO DAILYCM supplement #0 tabs 06/24/14 05/10/24 Rx mcg tablet cholecalciferol (vitamin D3) 50 4,000 unit PO QDAY supplement 01/27/20 05/10/24 History mcg (2,000 unit) tablet metformin 850 mg tablet 850 mg PO BIDCM diabetes 01/27/20 05/10/24 History warfarin 6 mg tablet 5 mg PO 5XW blood thinner 07/19/20 06/04/24 History levothyroxine 25 mcg tablet 50 mcg PO QDAY thyroid 09/19/21 05/11/24 History amlodipine 2.5 mg tablet 2.5 mg PO DAILY blood pressure #90 01/28/24 05/10/24 Rx TABLETS spironolactone 25 mg tablet 25 mg PO QDAY water pill #90 tabs 03/12/24 05/11/24 Rx furosemide 40 mg tablet (Lasix) 40 mg PO QDAY #90 tabs 05/13/24 Unknown Rx Allergy/AdvReac Type Severity Reaction Status Date / Time metformin AdvReac Lactic Verified 06/06/24 21:16 acidosis Family History Father Hypertension Surgical History History of eye surgery (~09/2023) 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
--- NOTE | 2024-06-07 14:55 | NURSING ---
transferred off the floor with surgery staff for EGD at this time
--- NOTE | 2024-06-07 16:08 | PCM.PN.BLA ---
Progress Note Patient has been n.p.o. for upper endoscopy today. He has not had any signs of upper GI bleed. Physical Exam Const alert, oriented x3, no apparent distress and healthy appearing General Appearance: cooperative GI normal to inspection, nondistended, normoactive bowel sounds, soft to palpation, non-tender and non-distended Percussion: normal to percussion Rectal Exam: deferred Assessment & Plan Assessment/Plan (1) Acute upper GI bleed: (2) Anemia: QUALIFIERS: Anemia type: unspecified type Qualified Code(s): D64.9 - Anemia, unspecified (3) Warfarin toxicity: QUALIFIERS: Encounter type: initial encounter Injury intent: accidental or unintentional Qualified Code(s): T45.511A - Poisoning by anticoagulants, accidental (unintentional), initial encounter (4) MYRIAM (acute kidney injury): (5) CKD stage 3b, GFR 30-44 ml/min: (6) Hyperkalemia: (7) Lactic acidosis: (8) Cirrhosis: QUALIFIERS: Hepatic cirrhosis type: alcoholic cirrhosis Ascites presence: without ascites Qualified Code(s): K70.30 - Alcoholic cirrhosis of liver without ascites (9) Cardiomyopathy, ischemic: PLAN: Plan 74-year-old gentleman was admitted with 3 dark stool, bloating, 1 dark-colored vomiting Upper GI bleed complicated with acute blood loss anemia on chronic anemia exacerbated by warfarin and Plavix: Given the diagnosis does include peptic ulcer disease, variceal bleeding. Patient is admitted in ICU. He was found severe anemia H&H 6.4/20% x 2. Baseline hemoglobin stays between 9 to 10 g% last 1 year. Had 1 unit of PRBC transfusion. Pantoprazole IV drip. He will undergo an upper endoscopy to evaluate his upper GI tract. He was explained alternatives, appointment physical therapy, infection, blood pressure therapy . He will have an ASA 3. Visit Charges Inpatient E&M: 26925 Subs Hosp L2
--- NOTE | 2024-06-07 16:32 | OP.CCLET_ITS ---
06/07/2024 Sherice Campos [address] [place] [address] [place] [address] Re : Upper GI endoscopy procedure for Dennis Coffey Dear Dr. Campos This procedure was performed on Friday, June 07, 2024. My impressions and recommendations are as follows: Impressions : - Esophageal ulcer with stigmata of recent bleeding. - Portal hypertensive gastropathy. - Non-bleeding duodenal ulcers with no stigmata of bleeding. - No specimens collected. Recommendations : - Return patient to ICU for ongoing care. - Clear liquid diet today. - Continue present medications. - Continue PPI drip - Carafte 1gm four times a day x 2 weeks My findings are described in the full procedure note, which is enclosed. If I can be of further assistance, please feel free to contact me at . Sincerely, Vidal Aceves, 06/07/2024 4:31:18 PM This report has been signed electronically.
--- NOTE | 2024-06-07 16:32 | OP.EGD_ITS ---
Patient Name: Dennis Coffey Procedure Date: 06/07/2024 3:26 PM Date of : 1950 Age: 74 Procedure: Upper GI endoscopy Indications: Hematemesis Providers: Vidal Aceves DO Medicines: Monitored Anesthesia Care Patient Profile: This is a 74 year old male. Refer to note in patient chart for documentation of history and physical. Patient has symptoms. Complications: No immediate complications. Procedure: Pre-Anesthesia Assessment: - Prior to the procedure, a History and Physical was performed, and patient medications and allergies were reviewed. The patient is competent. The risks and benefits of the procedure and the sedation options and risks were discussed with the patient. All questions were answered and informed consent was obtained. Patient identification and proposed procedure were verified by the physician in the pre-procedure area. Mental Status Examination: alert and oriented. Airway Examination: normal oropharyngeal airway and neck mobility. Respiratory Examination: clear to auscultation. CV Examination: normal. Prophylactic Antibiotics: The patient does not require prophylactic antibiotics. Prior Anticoagulants: The patient has taken no anticoagulant or antiplatelet agents except for NSAID medication. ASA Grade Assessment: II - A patient with mild systemic disease. After reviewing the risks and benefits, the patient was deemed in satisfactory condition to undergo the procedure. The anesthesia plan was to use monitored anesthesia care (MAC). Immediately prior to administration of medications, the patient was re-assessed for adequacy to receive sedatives. The heart rate, respiratory rate, oxygen saturations, blood pressure, adequacy of pulmonary ventilation, and response to care were monitored throughout the procedure. The physical status of the patient was re-assessed after the procedure. After obtaining informed consent, the endoscope was passed under direct vision. Throughout the procedure, the patient's blood pressure, pulse, and oxygen saturations were monitored continuously. The gastroscope was introduced through the mouth, and advanced to the second part of duodenum. The upper GI endoscopy was accomplished without difficulty. The patient tolerated the procedure well. Scope In: 4:25:01 PM Scope Out: 4:27:16 PM Total Procedure Duration Time 0 hours 2 minutes 15 seconds Findings: One cratered esophageal ulcer with stigmata of recent bleeding was found 38 to 40 cm from the incisors. The lesion was 6 mm in largest dimension. Severe portal hypertensive gastropathy was found in the entire examined stomach. Few non-bleeding superficial duodenal ulcers with no stigmata of bleeding were found in the duodenal bulb. The largest lesion was 4 mm in largest dimension. Impression: - Esophageal ulcer with stigmata of recent bleeding. - Portal hypertensive gastropathy. - Non-bleeding duodenal ulcers with no stigmata of bleeding. - No specimens collected. Recommendation: - Return patient to ICU for ongoing care. - Clear liquid diet today. - Continue present medications. - Continue PPI drip - Carafte 1gm four times a day x 2 weeks Procedure Code(s): --- Professional --- 29695, Esophagogastroduodenoscopy, flexible, transoral; diagnostic, including collection of specimen(s) by brushing or washing, when performed (separate procedure) CPT copyright 2021 [employer]. All rights reserved. The codes documented in this report are preliminary and upon propagator review may be revised to meet current compliance requirements. Vidal Aceves DO 06/07/2024 4:31:18 PM This report has been signed electronically. Number of Addenda: 0 Note Initiated On: 06/07/2024 3:26 PM
--- NOTE | 2024-06-07 16:37 | PCM.POST.ANE ---
Anesthesia: Postop Eval I Current Vital Signs Temperature: 97.6 F Pulse Rate: 103 Blood Pressure: 102/59 Respiratory Rate: 16 Pulse Ox: 96 Assessment Airway patent: Yes Spontaneous unlabored respirations: Yes nausea: No Vomiting: No Anesthesia Complication: No Fluid Hydration Crystalloid volume administer (ml): 5 Total IV fluid infused: 5 Progress Note Anesthesia document: Postop Eval 1 completed: Yes
--- NOTE | 2024-06-07 16:43 | POSTOPAN2_ITS ---
Anesthesia Postop Eval I Sum Postop Eval Completion status Anesthesia document: Postop Eval 1 completed: Yes Anesthesia Postop Eval I Summary Anesthesia Postop Eval I Summary: Anesthesia Postop Eval I: Assessment Summary Airway patent Yes 06/07/24 16:37 [email or web address] Spontaneous unlabored Yes 06/07/24 16:37 [email or web address] respirations Mental status nausea No 06/07/24 16:37 [email or web address] Vomiting No 06/07/24 16:37 [email or web address] Anesthesia Postop Eval I: Fluid Summary Crystalloid volume administer 5 06/07/24 16:37 [email or web address] (ml) Colloids volume administered ( ml) Blood Product volume administered (ml) Total IV fluid infused 5 06/07/24 16:37 [email or web address] Anesthesia Postop Eval I: Summary Notes Anesthesia Complication No 06/07/24 16:37 [email or web address] Anesthesia Complication Comment: Post-operative progress note Anesthesia: Postop Eval II Evaluation Mental status: Awake Pain Level: 0 nausea: No Vomiting: No
--- NOTE | 2024-06-07 16:43 | PCM.POSTANE2 ---
Anesthesia Postop Eval I Sum Postop Eval Completion status Anesthesia document: Postop Eval 1 completed: Yes Anesthesia Postop Eval I Summary Anesthesia Postop Eval I Summary: Anesthesia Postop Eval I: Assessment Summary Airway patent Yes 06/07/24 16:37 [email or web address] Spontaneous unlabored Yes 06/07/24 16:37 [email or web address] respirations Mental status nausea No 06/07/24 16:37 [email or web address] [email or web address] Vomiting No 06/07/24 16:37 [email or web address] Anesthesia Postop Eval I: Fluid Summary Crystalloid volume administer 5 06/07/24 16:37 [email or web address] (ml) Colloids volume administered ( ml) Blood Product volume administered (ml) Total IV fluid infused 5 06/07/24 16:37 [email or web address] Anesthesia Postop Eval I: Summary Notes Anesthesia Complication No 06/07/24 16:37 [email or web address] Anesthesia Complication Comment: Post-operative progress note Anesthesia: Postop Eval II Evaluation Mental status: Awake Pain Level: 0 nausea: No Vomiting: No
[2024-06-07 21:48] LABS: Bedside Glucose 157 mg/dL (74-106)
[2024-06-08] VITALS (13 sets, daily range): BP systolic 105–130; BP diastolic 59–79; PULSE 95–113; RESP 15–20; TEMP 36.2–36.7; O2SAT 93–100; BMI 29.5
[2024-06-08] MEDS: Morphine 2 MG/ML Syringe 1 MG IV ×2 (00:08→08:41)
[2024-06-08] MEDS: Pantoprazole Sodium 80 MG in 0.9% Normal Saline (100mL Bag) 80 ML 10 MG CONT INF (03:56)
[2024-06-08] MEDS: 0.9% Saline Lock 10 ML Syringe IV ×3 (03:57→22:34)
[2024-06-08 04:02] LABS: Absolute Lymphocyte Count 0.46 X10^3/uL (0.83-4.51); Absolute Neutrophil Count 4.5 X10^3/uL (2.0-7.7); Basophil# 0.02 X10^3/uL; Basophil% 0.3 % (0-1); Eosinophil# 0.04 X10^3/uL; Eosinophils% 0.7 % (0-5); Hematocrit 23.1 % (40-54); Hemoglobin 7.6 g/dL (13.0-16.5); Lymphocyte # 0.46 X10^3/ul (0.83-4.51); Lymphocyte % 7.9 % (19-41); Mean Corp Hgb Conc 32.9 g/dL (32-36); Mean Corpuscular Hgb 25.8 pg (27.0-32.0); Mean Corpuscular Volume 78.3 fL (80-94); Mean Platelet Vol. 9.2 fl (6.2-12.0); Monocyte# 0.78 X10^3/uL; Monocyte% 13.4 % (0-10); NRBC Flagged by Analyzer 0 % (0-5); Neutrophil % 77.2 % (47-70); POSITIVE DIFFERENTIAL YES; Platelet Count 128 K/mm3 (150-450); RBC Distribution Width CV 18.3 % (11.6-14.6); RBC Distribution Width SD 50.7 fl (35.1-43.9); Red Blood Count 2.95 M/mm3 (4.6-6.2); White Blood Count 5.8 K/mm3 (4.4-11.0)
[2024-06-08 04:51] LABS: Anion Gap 13 (5-15); BUN 80 mg/dL (4-19); Calcium 8.7 mg/dL (7.6-11.0); Carbon Dioxide 20.8 mmol/L (22.0-29.0); Chloride 102 mmol/L (96-108); Creatinine, Serum 2.29 mg/dL (0.70-1.20); EST Glomerular Filtration Rate 30 (>60); Estimated Creatinine Clearance 28.47 ml/min (50-250); Glucose 133 mg/dL (70-99); Sodium Level 136 mmol/L (133-145)
[2024-06-08 04:53] LABS: Phosphorus 2.4 mg/dL (2.7-4.5)
[2024-06-08 05:33] LABS: Lactic Acid 2.5 mmol/L (0.0-2.0)
--- NOTE | 2024-06-08 08:34 | PN.HOSP_ITS ---
Reason for Visit Reason for Visit: Diagnoses Anemia, unspecified (06/06/24) Overweight (06/06/24) Acidosis, unspecified (06/06/24) Hyperkalemia (06/06/24) Ischemic cardiomyopathy (06/06/24) Alcoholic cirrhosis of liver without ascites (06/06/24) Gastrointestinal hemorrhage, unspecified (06/06/24) Acute kidney failure, unspecified (06/06/24) Chronic kidney disease, stage 3b (06/06/24) Elevation of levels of liver transaminase levels (06/06/24) Poisoning by anticoagulants, accidental (unintentional), initial encounter (06/06/24) Adverse effect of unspecified drugs, medicaments and biological substances, initial encounter (06/06/24) Objective Data Objective Data Vital Signs: Vital Signs Temp Pulse Resp BP Pulse Ox O2 Del Method O2 Flow Rate 97.7 F L 95 18 105/61 100 Nasal Cannula 2 06/08/24 05:00 06/08/24 05:00 06/08/24 05:00 06/08/24 05:00 06/08/24 05:00 06/08/24 05:00 06/08/24 05:00 Oxygen Flow Rate (L/min) 2 Oxygen Delivery Method Nasal Cannula Weight: 177 lb 0.499 oz Body Mass Index (BMI) 29.5 Intake & Output: Intake and Output for Last 24 Hours 06/06/24 06/07/24 06/08/24 23:59 23:59 23:59 Intake Total 85.5 / 85.5 1946.25 / 1946.25 95.83 / 95.83 Output Total 1999 360 / 360 Balance 85.5 / 85.5 -53.75 / -53.75 -264.17 / -264.17 Lab / Micro Data 06/08/24 03:50 06/08/24 03:50 Labs: Laboratory Results - last 24 hr 06/06/24 18:08: Crossmatch See Detail 06/07/24 02:02: Lactic Acid 2.5 H* 06/07/24 10:08: Lactic Acid 1.5, Ammonia 12.7 L 06/07/24 11:02: POC Glucose 128 H 06/07/24 13:30: Hgb 7.5 L, Hct 23.0 L 06/07/24 21:29: POC Glucose 157 H 06/08/24 03:50: WBC 5.8, RBC 2.95 L, Hgb 7.6 L, Hct 23.1 L, MCV 78.3 L, MCH 25.8 L, MCHC 32.9, RDW Std Deviation 50.7 H, RDW Coeff of Ambrosio 18.3 H, Plt Count 128 L , MPV 9.2, Immature Gran % (Auto) 0.500, Neut % (Auto) 77.2 H, Lymph % (Auto) 7.9 L, [place] % (Auto) 13.4 H, Eos % (Auto) 0.7, Baso % (Auto) 0.3, Absolute Neuts (auto) 4.5, Absolute Lymphs (auto) 0.46 L, Nucleated RBC % 0, Sodium 136, Potassium 4.0, Chloride Direct 102, Carbon Dioxide 20.8 L, Anion Gap 13, BUN 80 H, Creatinine 2.29 H, Estim Creat Clear Calc 28.47 L, Est GFR (MDRD) Non-Af 30 L , BUN/Creatinine Ratio 35.0 H, Glucose 133 H, Calcium 8.7, Phosphorus 2.4 L Micro: Microbiology 06/06/24 18:30 Stool Stool Occult Blood (TYRON) - Final Occult Blood Positive Radiography Diagnostic Testing: Radiology Impression Abdomen Ultrasound 06/07/24 09:48 IMPRESSION: 1. Fatty infiltration of the liver. 2. Ascites. Reading Location: [facility] Physical Exam Narrative Seen and examined. Patient is stated that he has abdominal distention for about 2 to 3 weeks. No abdominal pain. Had 1 episode of dark red vomiting/hematemesis and 3-4 episodes of melena in the last 1 day. Physical exam General: Alert, Oriented x3, Cooperative HEENT: Atraumatic, PERRLA, EOMI, Normocephalic Oral: No Gingival or Mucosal Lesions/ Ulcerations Neck: Supple, No JVD, Negative Carotid Bruits Chest wall/Lungs: Air entry diminished in bilateral lung bases. No crepitation/rhonchi Cardiovascular: Regular rate, Regular Rhythm, Normal S1, Normal S2, systolic murmur Abdomen: Bowel Sounds Present, nontender, soft mild abdominal distention, shifting dullness present, ascites : No dysuria. No renal angle tenderness. No suprapubic tenderness. Extremities: Bilateral 2+ below thigh pitting edema, Capillary Refill Less than 3 Seconds Skin: No rashes, No breakdown Musculoskeletal: No Tenderness to Palpation of Joints or Extremities Neurological: Cranial nerves II-XII grossly intact, DTR 2+/4. No acute focal neurological deficit. Psych/Mental Status: Flat affect Assessment & Plan Assessment/Plan (1) Acute upper GI bleed: (2) Anemia: QUALIFIERS: Anemia type: unspecified type Qualified Code(s): D 64.9 - Anemia, unspecified (3) Warfarin toxicity: QUALIFIERS: Encounter type: initial encounter Injury intent: a ccidental or unintentional Qualified Code(s): T45.511A - Poisoning by anticoagulants, accidental (unintentional), initial encounter (4) MYRIAM (acute kidney injury): (5) CKD stage 3b, GFR 30-44 ml/min: (6) Hyperkalemia: (7) Lactic acidosis: (8) Cirrhosis: QUALIFIERS: Hepatic cirrhosis type: alcoholic cirrhosis Ascites presence: without ascites Qualified Code(s): K70.30 - Alcoholic cirrhosis of liver without ascites (9) Cardiomyopathy, ischemic: PLAN: Plan 74-year-old gentleman was admitted with 3 dark stool, bloating, 1 dark-colored vomiting along with generalized weakness and mild shortness of breath,started 24 hours ago. The patient is stated he is not taking Coumadin for last 3 days 1. Upper GI bleed complicated with acute blood loss anemia on chronic anemia exacerbated by warfarin and Plavix: Patient is admitted in ICU. He was found severe anemia H&H 6.4/20% x 2. Baseline hemoglobin stays between 9 to 10 g% last 1 year. Had 1 unit of PRBC transfusion. GI is consulted. NPO. Pantoprazole IV drip EGD on 06/07/2024: Impressions : - Esophageal ulcer with stigmata of recent bleeding. - Portal hypertensive gastropathy. - Non-bleeding duodenal ulcers with no stigmata of bleeding. - No specimens collected. 06/08: Patient on PPI drip. Carafate was added 1 g 4 times daily for 2-week . Change PPI drip to pantoprazole 40 mg IV every 12 hourly. H&H 7.6/23.1%. IV iron ordered. 2. Warfarin toxicity: INR was 1 more than 19.5. IV vitamin K was given. Repeat INR 4.2 3. MYRIAM on CKD stage IIIb: Patient on loop diuretic. With IV fluid restriction. Admitting BUNs/creatinine 99/3.0. Creatinine is around 1.85-2.04. 3: Creatinine 2.29 today. BUN 80. Phosphorus low 2.4. 4. Moderate ascites, bilateral pleural effusion and bilateral lower extremity edema: CT abdomen medially reviewed shows moderate right pleural effusion, small left pleural effusion, moderate ascites. Liver contour does not look nodular but small in size. Will need ultrasound-guided paracentesis. Kidneys unremarkable. Right upper quadrant sonogram ordered CT Abdo also reported spleen pancreas gallbladder, adrenals normal. Lactic acid elevated probably due to intravascular volume deficit/hypovolemia complicated with metformin. 3/: Plan for ultrasound-guided paracentesis 5 Mild Hyperkalemia of 5.2 mmol/L and mild Hyponatremia of 130 mmol/L: Repeat sodium 132. Serum potassium repeat normal. 6. Acute liver injury with history of EtOH abuse: Patient liver chemistry was normal in May 11, 2024. Admitted with ALT 359, AST 486. Direct bilirubin and total bilirubin normal. Serum albumin low normal, 3.6 7. CAD status post cardiac, chronic severe systolic heart failure with LVEF ~15% (02/2024) with AICD (2015) in the setting of previous cardiac arrest due to ventricular fibrillation - Watch carefully for signs of volume overload. Quit smoking in 2014. Patient also has history of CVA and peripheral arterial 8. Overweight; BMI of 29.9 this admission -may be fluid weight 9. Essential Hypertension - Hold scheduled oral antihypertensives in light of volume depleted state and MYRIAM. Hydralazine as needed 10. Hyperlipidemia - Hold atorvastatin until patient can tolerate oral intake. 11. Hypothyroidism - TSH 11.8. Free T4 1.1 Normal. Free T3 low. Slightly increase the dose of levothyroxine 12. DM-2; on metformin - Keep NPO. Accu-Chek before meals and at bedtime with Humalog sliding scale coverage and hypoglycemia protocol. DVT prophylaxis - SCD's Charges/Coding Visit Charges Inpatient E&M: 91801 Subs Hosp L3
[2024-06-08] MEDS: Insulin Lispro 100 UNIT/ML INSULN.PEN SC ×3 (08:40→21:56)
[2024-06-08 08:53] LABS: Bedside Glucose 194 mg/dL (74-106)
[2024-06-08 09:01] LABS: Prothrombin Time (Protime)PT. 23.3 SECONDS (11.7-14.9)
[2024-06-08 09:02] LABS: Partial Thromboplast Time 41.7 Seconds (24.1-36.2)
--- NOTE | 2024-06-08 09:30 | CASEMGMT ---
RN YUVAL participated in multidisciplinary rounds, pt reports he would be agreeable to [facility] services now. Pt aware RN YUVAL to check back.
[2024-06-08 09:36] LABS: AST(SGOT) 323 U/L (<=37); Alanine Aminotransfer ALT/SGPT 316 U/L (<=46); Albumin, Serum 3.4 g/dL (3.4-4.8); Alkaline Phosphatase 113 U/L (40-129); Globulin 2.8 g/dL (2.2-4.2); Protein, Total 6.2 g/dL (5.9-8.4); Total Bilirubin 1.32 mg/dL (0.00-1.30)
[2024-06-08] MEDS: Pantoprazole Sodium 40 MG in 0.9% Normal Saline (100mL MB+) 100 ML 330 MG IV ×2 (10:27→21:57)
[2024-06-08] MEDS: Na Biphos/Potassium Phosphate PACKET 1 PACKET PO ×3 (10:28→21:57)
[2024-06-08] MEDS: Sodium Ferric Gluconat/Sucrose 250 MG in 0.9% Normal Saline (250mL Bag) 250 ML 135 MG IV (10:39)
--- NOTE | 2024-06-08 10:42 | CASEMGMT ---
Discharge Planning A list of HH providers including quality and resource use data and consistent with the patient's preferred geographic region, medical needs, and insurance network was created in [employer] Guide.? This list was provided to the patient. Marla Grant, Discharge Planning Asst.
--- NOTE | 2024-06-08 11:06 | CASEMGMT ---
Addendum entered by Marla Grant 06/08/24 11:32: [facility] has accepted. Marla Grant DC Planning Asst. Original Note: Discharge Planning Pts AOC are as follows; 1) [facility] 2) [facility] 3) [facility]. referral sent to [facility]. Marla Grant DC Planning Asst.
[2024-06-08] MEDS: Sucralfate 1 GM Tablet PO ×3 (11:44→21:56)
[2024-06-08 12:09] LABS: Bedside Glucose 160 mg/dL (74-106)
[2024-06-08] MEDS: Ondansetron 4 MG/2 ML Vial IV ×2 (14:30→22:34)
[2024-06-08 16:49] LABS: Bedside Glucose 146 mg/dL (74-106)
--- NOTE | 2024-06-08 17:57 | PCM.PN.BLA ---
Progress Note Patient is having some abdominal distention today. He was not able to get paracentesis today. Due to the fact that he has been on antiplatelet therapy. Physical Exam Narrative Seen and examined. Patient is stated that he has abdominal distention for about 2 to 3 weeks. No abdominal pain. Had 1 episode of dark red vomiting/hematemesis and 3-4 episodes of melena in the last 1 day. Physical exam General: Alert, Oriented x3, Cooperative HEENT: Atraumatic, PERRLA, EOMI, Normocephalic Oral: No Gingival or Mucosal Lesions/ Ulcerations Neck: Supple, No JVD, Negative Carotid Bruits Chest wall/Lungs: Air entry diminished in bilateral lung bases. No crepitation/rhonchi Cardiovascular: Regular rate, Regular Rhythm, Normal S1, Normal S2, systolic murmur Abdomen: Bowel Sounds Present, nontender, soft mild abdominal distention, shifting dullness present, ascites : No dysuria. No renal angle tenderness. No suprapubic tenderness. Extremities: Bilateral 2+ below thigh pitting edema, Capillary Refill Less than 3 Seconds Skin: No rashes, No breakdown Musculoskeletal: No Tenderness to Palpation of Joints or Extremities Neurological: Cranial nerves II-XII grossly intact, DTR 2+/4. No acute focal neurological deficit. Psych/Mental Status: Flat affect Assessment & Plan Assessment/Plan (1) Acute upper GI bleed: (2) Anemia: QUALIFIERS: Anemia type: unspecified type Qualified Code(s): D64.9 - Anemia, unspecified (3) Warfarin toxicity: QUALIFIERS: Encounter type: initial encounter Injury intent: accidental or unintentional Qualified Code(s): T45.511A - Poisoning by anticoagulants, accidental (unintentional), initial encounter (4) MYRIAM (acute kidney injury): (5) CKD stage 3b, GFR 30-44 ml/min: (6) Hyperkalemia: (7) Lactic acidosis: (8) Cirrhosis: QUALIFIERS: Hepatic cirrhosis type: alcoholic cirrhosis Ascites presence: without ascites Qualified Code(s): K70.30 - Alcoholic cirrhosis of liver without ascites (9) Cardiomyopathy, ischemic: PLAN: Plan 74-year-old gentleman was admitted with 3 dark stool, bloating, 1 dark-colored vomiting along with generalized weakness and mild shortness of breath. He takes Coumadin for a pre-existing diagnosis of congestive heart failure and atrial fibrillation. He also has a history of CAD status post PTCA with stent so he is on Plavix. I was consulted due to the fact that he had upper GI bleed in the setting of imaging that showed cirrhosis. His INR was severely elevated at 19.5 and during the EGD procedure was down to 4.2. He underwent an upper endoscopy yesterday. Findings: One cratered esophageal ulcer with stigmata of recent bleeding was found 38 to 40 cm from the incisors. The lesion was 6 mm in largest dimension. Severe portal hypertensive gastropathy was found in the entire examined stomach. Few non-bleeding superficial duodenal ulcers with no stigmata of bleeding were found in the duodenal bulb. The largest lesion was 4 mm in largest dimension. Impression: - Esophageal ulcer with stigmata of recent bleeding. - Portal hypertensive gastropathy. - Non-bleeding duodenal ulcers with no stigmata of bleeding. - No specimens collected. Recommendation: - Return patient to ICU for ongoing care. - Clear liquid diet today. - Continue present medications. - Continue PPI drip - Carafte 1gm four times a day x 2 weeks He is tolerating a diet and would like his diet advanced. I am okay with him in full liquids. He is on Carafate therapy and IV Protonix twice a day. His hemoglobin seems to be stable at this time. He is for paracentesis tomorrow. I think his cirrhosis is likely secondary to cardiogenic cirrhosis as he has not drank alcohol in 10 years and did not drink a lot prior to that. However his EF is 15%. Visit Charges Inpatient E&M: 36118 Subs Hosp L3
[2024-06-08 22:24] LABS: Bedside Glucose 205 mg/dL (74-106)
[2024-06-09] VITALS (15 sets, daily range): BP systolic 101–124; BP diastolic 64–84; PULSE 66–125; RESP 15–20; TEMP 36.2–36.7; O2SAT 91–100; BMI 29.2
--- NOTE | 2024-06-09 | FLU_PTH ---
PATIENT: RYAN WILL LOC: [facility] U#:[id number] AGE/SX: 74/M ROOM: [facility] RE06/06/[address]: Dr. Carter Fleming MD : 1950 BED: 1 DIS: 06/11/2024 SPEC #: [id number] RECD: 06/09/24 14:17 STATUS: OLIVIA REQ #: [id number] BRUCE: 06/09/24 00:[address]: Carter Fleming DEPT: CYTOLOGY RECD BY: Shi Rivera ENTERED: 06/09/24 14:49 SP TYPE: Fluid OTHR DR: DO Dr. Sherice Helms DO Tissues: PARACENTESIS FLUID Procedures: Special Stain Group II Surgery Specimen Level IV Cytospin Fluid HEADER OPERATION: Ultrasound guided paracentesis PRE-OP DIAGNOSIS: Ascites TISSUE SUBMITTED: Paracentesis fluid for cytology DIAGNOSIS CYTOLOGY Paracentesis fluid, cytology and cell block:Mesothelial cells lymphocytes and neutrophilsNegative for malignant cellsAbi Santos MD, 06/17/2024 CYTOLOGY STUDY Slides are reviewed. CYTOLOGY GROSS Received is 80 ml of hazy-norbert fluid labeled with the patient's name and and designated per the requisition as Paracentesis fluid. Submitted for cytology preparation including cell block. Mr 06/09/2024 CPT: 30952,76526, TC:4
[2024-06-09 03:52] LABS: Absolute Neutrophil Count 4.5 X10^3/uL (2.0-7.7); Basophil# 0.02 X10^3/uL; Basophil% 0.3 % (0-1); Eosinophil# 0.06 X10^3/uL; Hematocrit 23.1 % (40-54); Hemoglobin 7.5 g/dL (13.0-16.5); Lymphocyte % 6.7 % (19-41); Mean Corp Hgb Conc 32.5 g/dL (32-36); Mean Corpuscular Hgb 25.6 pg (27.0-32.0); Mean Corpuscular Volume 78.8 fL (80-94); Mean Platelet Vol. 9.4 fl (6.2-12.0); Monocyte# 0.91 X10^3/uL; Monocyte% 15.3 % (0-10); NRBC Flagged by Analyzer 0 % (0-5); Neutrophil # 4.53 X10^3/uL (2.7-7.7); Neutrophil % 76.4 % (47-70); POSITIVE DIFFERENTIAL YES; Platelet Count 113 K/mm3 (150-450); RBC Distribution Width CV 18.6 % (11.6-14.6); RBC Distribution Width SD 53.1 fl (35.1-43.9); Red Blood Count 2.93 M/mm3 (4.6-6.2); White Blood Count 5.9 K/mm3 (4.4-11.0)
[2024-06-09 04:00] LABS: International Normalized Ratio 2.1; Prothrombin Time (Protime)PT. 24.1 SECONDS (11.7-14.9)
[2024-06-09 04:12] LABS: ALB/GLOB Ratio 1.3 RATIO (0.9-2.4); AST(SGOT) 244 U/L (<=37); Alanine Aminotransfer ALT/SGPT 307 U/L (<=46); Albumin, Serum 3.4 g/dL (3.4-4.8); Alkaline Phosphatase 111 U/L (40-129); Anion Gap 14 (5-15); BUN 61 mg/dL (4-19); Bilirubin, Direct 0.87 mg/dL (0.00-0.30); Calcium 8.5 mg/dL (7.6-11.0); Carbon Dioxide 19.7 mmol/L (22.0-29.0); Chloride 100 mmol/L (96-108); Creatinine, Serum 1.91 mg/dL (0.70-1.20); EST Glomerular Filtration Rate 37 (>60); Estimated Creatinine Clearance 34.03 ml/min (50-250); Globulin 2.7 g/dL (2.2-4.2); Glucose 104 mg/dL (70-99); Potassium 3.5 mmol/L (3.3-5.1); Sodium Level 133 mmol/L (133-145); Total Bilirubin 1.22 mg/dL (0.00-1.30)
[2024-06-09 05:07] LABS: Magnesium 1.5 mg/dL (1.5-2.2); Phosphorus 2.7 mg/dL (2.7-4.5)
[2024-06-09] MEDS: Sucralfate 1 GM Tablet PO ×4 (06:04→21:00)
[2024-06-09] MEDS: Na Biphos/Potassium Phosphate PACKET 1 PACKET PO ×3 (06:04→21:00)
--- NOTE | 2024-06-09 08:23 | PN.HOSP_ITS ---
Reason for Visit Reason for Visit: Diagnoses Anemia, unspecified (06/06/24) Overweight (06/06/24) Acidosis, unspecified (06/06/24) Hyperkalemia (06/06/24) Ischemic cardiomyopathy (06/06/24) Alcoholic cirrhosis of liver without ascites (06/06/24) Gastrointestinal hemorrhage, unspecified (06/06/24) Acute kidney failure, unspecified (06/06/24) Chronic kidney disease, stage 3b (06/06/24) Elevation of levels of liver transaminase levels (06/06/24) Poisoning by anticoagulants, accidental (unintentional), initial encounter (06/06/24) Adverse effect of unspecified drugs, medicaments and biological substances, initial encounter (06/06/24) Objective Data Objective Data Vital Signs: Vital Signs Temp Pulse Resp BP Pulse Ox O2 Del Method O2 Flow Rate 98.0 F 100 15 124/84 H 96 Nasal Cannula 2 06/09/24 03:45 06/09/24 03:45 06/09/24 03:45 06/09/24 03:45 06/09/24 07:45 06/09/24 07:45 06/09/24 07:45 Oxygen Flow Rate (L/min) 2 Oxygen Delivery Method Nasal Cannula Weight: 175 lb 14.862 oz Body Mass Index (BMI) 29.2 Intake & Output: Intake and Output for Last 24 Hours 06/07/24 06/08/24 06/09/24 23:59 23:59 23:59 Intake Total 1946.25 / 1946.25 1254.16 / 1254.16 200 / 200 Output Total 1999 960 / 960 300 / 300 Balance -53.75 / -53.75 294.16 / 294.16 -100 / -100 Lab / Micro Data 06/09/24 03:43 06/09/24 03:43 Labs: Laboratory Results - last 24 hr 06/08/24 08:30: PT 23.3 H, INR 2.0, APTT 41.7 H, Total Bilirubin 1.32 H, Direct Bilirubin 0.90 H, AST 323 H, ALT 316 H, Alkaline Phosphatase 113, Total Protein 6.2, Albumin 3.4, Globulin 2.8 06/08/24 08:31: POC Glucose 194 H 06/08/24 11:43: POC Glucose 160 H 06/08/24 16:31: POC Glucose 146 H 06/08/24 21:50: POC Glucose 205 H 06/09/24 03:43: WBC 5.9, RBC 2.93 L, Hgb 7.5 L, Hct 23.1 L, MCV 78.8 L, MCH 25.6 L, MCHC 32.5, RDW Std Deviation 53.1 H, RDW Coeff of Ambrosio 18.6 H, Plt Count 113 L , MPV 9.4, Immature Gran % (Auto) 0.300, Neut % (Auto) 76.4 H, Lymph % (Auto) 6.7 L, [place] % (Auto) 15.3 H, Eos % (Auto) 1.0, Baso % (Auto) 0.3, Absolute Neuts (auto) 4.5, Absolute Lymphs (auto) 0.40 L, Nucleated RBC % 0, PT 24.1 H, INR 2.1, Sodium 133, Potassium 3.5, Chloride Direct 100, Carbon Dioxide 19.7 L, Anion Gap 14, BUN 61 H, Creatinine 1.91 H, Estim Creat Clear Calc 34.03 L, Est GFR (MDRD) Non-Af 37 L, BUN/Creatinine Ratio 32.0 H, Glucose 104 H, Calcium 8.5, Phosphorus 2.7, Magnesium 1.5, Total Bilirubin 1.22, Direct Bilirubin 0.87 H, A ST 244 H, ALT 307 H, Alkaline Phosphatase 111, Total Protein 6.0, Albumin 3.4, Globulin 2.7, Albumin/Globulin Ratio 1.3 Micro: Microbiology 06/06/24 18:30 Stool Stool Occult Blood (TYRON) - Final Occult Blood Positive Physical Exam Narrative Seen and examined. Patient did not had paracentesis yesterday was canceled because being on Plavix. Patient was admitted with abdominal distention for about 2 to 3 weeks. No abdominal pain. Had 1 episode of dark red vomiting/hematemesis and 3-4 episodes of melena in the last 1 day. Physical exam General: Alert, Oriented x3, Cooperative HEENT: Atraumatic, PERRLA, EOMI, Normocephalic Oral: No Gingival or Mucosal Lesions/ Ulcerations Neck: Supple, No JVD, Negative Carotid Bruits Chest wall/Lungs: Air entry diminished in bilateral lung bases. No crepitation/rhonchi Cardiovascular: Regular rate, Regular Rhythm, Normal S1, Normal S2, systolic murmur Abdomen: Bowel Sounds Present, nontender, soft mild abdominal distention, shifting dullness present, ascites : No dysuria. No renal angle tenderness. No suprapubic tenderness. Extremities: Bilateral 2+ below thigh pitting edema, Capillary Refill Less than 3 Seconds Skin: No rashes, No breakdown Musculoskeletal: No Tenderness to Palpation of Joints or Extremities Neurological: Cranial nerves II-XII grossly intact, DTR 2+/4. No acute focal neurological deficit. Psych/Mental Status: Flat affect Assessment & Plan Assessment/Plan (1) Acute upper GI bleed: (2) Anemia: QUALIFIERS: Anemia type: unspecified type Qualified Code(s): D 64.9 - Anemia, unspecified (3) Warfarin toxicity: QUALIFIERS: Encounter type: initial encounter Injury intent: a ccidental or unintentional Qualified Code(s): T45.511A - Poisoning by anticoagulants, accidental (unintentional), initial encounter (4) MYRIAM (acute kidney injury): (5) CKD stage 3b, GFR 30-44 ml/min: (6) Hyperkalemia: (7) Lactic acidosis: (8) Cirrhosis: QUALIFIERS: Ascites presence: without ascites Hepatic cirrhosis type: alcoholic cirrhosis Qualified Code(s): K70.30 - Alcoholic cirrhosis of liver without ascites (9) Cardiomyopathy, ischemic: PLAN: Plan 74-year-old gentleman was admitted with 3 dark stool, bloating, 1 dark-colored vomiting along with generalized weakness and mild shortness of breath,started 24 hours ago. The patient is stated he is not taking Coumadin for last 3 days 1. Upper GI bleed complicated with acute blood loss anemia on chronic anemia exacerbated by warfarin and Plavix: Patient is admitted in ICU. He was found severe anemia H&H 6.4/20% x 2. Baseline hemoglobin stays between 9 to 10 g% last 1 year. Had 1 unit of PRBC transfusion. GI is consulted. NPO. Pantoprazole IV drip EGD on 06/07/2024: Impressions : - Esophageal ulcer with stigmata of recent bleeding. - Portal hypertensive gastropathy. - Non-bleeding duodenal ulcers with no stigmata of bleeding. - No specimens collected. 06/08: Patient on PPI drip. Carafate was added 1 g 4 times daily for 2-week . Change PPI drip to pantoprazole 40 mg IV every 12 hourly. H&H 7.6/23.1%. IV iron ordered. 06/09: H&H 7.5/23%. Platelet count 113. Continue PPI. Severe anemia, ferritin 41, iron saturation 5%. Serum iron 15. IV iron infusion ordered 2. Warfarin toxicity: INR was 1 more than 19.5. IV vitamin K was given. Repeat INR 4.2 06/09: INR is 2.1. 3. MYRIAM on CKD stage IIIb: Patient on loop diuretic. With IV fluid restriction. Admitting BUNs/creatinine 99/3.0. Creatinine is around 1.85-2.04. 06/08: Creatinine 2.29 today. BUN 80. Phosphorus low 2.4. 06/09: Creatinine 1.91. K3.5 4. Moderate ascites, bilateral pleural effusion and bilateral lower extremity edema: CT abdomen medially reviewed shows moderate right pleural effusion, small left pleural effusion, moderate ascites. Liver contour does not look nodular but small in size. Will need ultrasound-guided paracentesis. Kidneys unremarkable. Right upper quadrant sonogram ordered CT Abdo also reported spleen pancreas gallbladder, adrenals normal. Lactic acid elevated probably due to intravascular volume deficit/hypovolemia complicated with metformin. 06/08: Plan for ultrasound-guided paracentesis 06/09: Ultrasound-guided paracentesis was postponed for today. 5 Mild Hyperkalemia of 5.2 mmol/L and mild Hyponatremia of 130 mmol/L: Repeat sodium 132. Serum potassium repeat normal. 6. Possible cirrhosis from cardiac/alcoholic cirrhosis: Patient liver chemistry was normal in May 11, 2024. Admitted with ALT 359, AST 486. Direct bilirubin and total bilirubin normal. Serum albumin low normal, 3.6 06/09: Abdominal ultrasound shows ascites and fatty infiltration of the liver. Liver size 14.7. CT abdomen additionally reviewed and looks liver towards the smaller side with thrombocytopenia, hypoalbuminemia. EGD shows PHG therefore high suspicion of cirrhosis. Patient also has EF of 10 to 15% with 2+ TR, PASP is 50 mmHg therefore probability of cardiac cirrhosis from pulmonary hypertension/TR 7. CAD status post cardiac, chronic severe systolic heart failure with LVEF ~15% (02/2024) with AICD (2015) in the setting of previous cardiac arrest due to ventricular fibrillation - Watch carefully for signs of volume overload. Quit smoking in 2014. Patient also has history of CVA and peripheral arterial 8. Overweight; BMI of 29.9 this admission -may be fluid weight 9. Essential Hypertension - Hold scheduled oral antihypertensives in light of volume depleted state and MYRIAM. Hydralazine as needed 10. Hyperlipidemia - Hold atorvastatin until patient can tolerate oral intake. 11. Hypothyroidism - TSH 11.8. Free T4 1.1 Normal. Free T3 low. Slightly increase the dose of levothyroxine 12. DM-2; on metformin - Keep NPO. Accu-Chek before meals and at bedtime with Humalog sliding scale coverage and hypoglycemia protocol. DVT prophylaxis - SCD's Charges/Coding Visit Charges Inpatient E&M: 05022 Subs Hosp L3
[2024-06-09 08:50] LABS: Bedside Glucose 121 mg/dL (74-106)
--- NOTE | 2024-06-09 09:48 | US_ITS ---
PROCEDURE: PARACENTESIS WITH US REASON FOR EXAM: Ascites. TECHNIQUE: The patient was in the supine position. The right lower quadrant was prepped and draped in the usual sterile fashion. Following local anesthetic application, a 5 Urdu catheter was placed into the fluid. A paracentesis was performed. COMPARISON: Comparison is made with prior study dated June 07, 2024. FINDINGS: A paracentesis was performed. 950 mL of dark yellow colored fluid was aspirated. A 100 mL sample was sent to the laboratory. US/Paracentesis with US IMPRESSION: Successful paracentesis. Reading Location: [id number]
[2024-06-09] MEDS: Pantoprazole Sodium 40 MG in 0.9% Normal Saline (100mL MB+) 100 ML 330 MG IV ×2 (10:06→20:59)
[2024-06-09 10:30] LABS: Absolute Lymphocyte Count 0.32 X10^3/uL (0.83-4.51); Absolute Neutrophil Count 4.5 X10^3/uL (2.0-7.7); Basophil# 0.01 X10^3/uL; Basophil% 0.2 % (0-1); Eosinophil# 0.02 X10^3/uL; Eosinophils% 0.4 % (0-5); Hematocrit 24.4 % (40-54); Hemoglobin 7.9 g/dL (13.0-16.5); Lymphocyte # 0.32 X10^3/ul (0.83-4.51); Lymphocyte % 5.7 % (19-41); Mean Corp Hgb Conc 32.4 g/dL (32-36); Mean Corpuscular Hgb 25.9 pg (27.0-32.0); Mean Platelet Vol. 9.1 fl (6.2-12.0); Monocyte# 0.72 X10^3/uL; Monocyte% 12.9 % (0-10); NRBC Flagged by Analyzer 0.4 % (0-5); Neutrophil # 4.48 X10^3/uL (2.7-7.7); Neutrophil % 80.4 % (47-70); POSITIVE DIFFERENTIAL YES; Platelet Count 118 K/mm3 (150-450); RBC Distribution Width SD 54.8 fl (35.1-43.9); Red Blood Count 3.05 M/mm3 (4.6-6.2); White Blood Count 5.6 K/mm3 (4.4-11.0)
[2024-06-09 10:39] LABS: International Normalized Ratio 2.1; Prothrombin Time (Protime)PT. 23.8 SECONDS (11.7-14.9)
[2024-06-09 10:40] LABS: Partial Thromboplast Time 46.4 Seconds (24.1-36.2)
[2024-06-09] MEDS: Ondansetron 4 MG/2 ML Vial IV ×2 (11:55→19:55)
[2024-06-09 12:09] LABS: Bedside Glucose 142 mg/dL (74-106)
--- NOTE | 2024-06-09 13:39 | OP.PCM_ITS ---
Problems Associated Problem List Diagnoses (1) Abdominal ascites: Procedures Radiology Radiology US Procedures: 43284 Paracentesis Operative Report (Standard) Operative Information Date of Procedure: 06/09/24 Pre-Operative Diagnosis: Abdominal ascites Post-Operative Diagnosis: Abdominal ascites Surgery/Procedure Performed: Ultrasound-guided paracentesis memorial marker designer: No Type of Anesthesia: Local RN Documented Start/Stop Times: Operation Date: 06/07/24 16:00 Case Time Into Pre-Op 06/07/24 15:14 Anesthesia Start 06/07/24 16:19 Into Room 06/07/24 16:19 Out of Pre-Op 06/07/24 16:22 Procedure Start 06/07/24 16:25 Procedure End 06/07/24 16:27 Anesthesia End 06/07/24 16:29 Out of Room 06/07/24 16:29 Into Recovery 06/07/24 16:32 Out of Recovery 06/07/24 16:52 Procedure Start Time: 13:46 Procedure Stop Time: 14:15 Select all DRAINS/GRAFTS/IMPLANTS that apply: None Estimated Blood Loss: 0 Specimen collected: Yes Description of specimen(s) removed: 100 mL of dark yellow cloudy fluid Description of surgery: PROCEDURE: Ultrasound guided paracentesis ORDERING PROVIDER: Dr. Fleming INDICATION: Male, 74 years old. Abdominal ascites. PROVIDER: DRE Maddox TECHNIQUE: The risks, benefits, and alternatives to the procedure were explained to the patient. The specific risks of bleeding, infection, and damage to bowel were detailed and accepted. Witnessed informed consent was obtained. The patient was previously on Plavix and warfarin. These are currently being held in the setting of an acute GI bleed. Coagulation studies were rechecked and assessed preprocedure. This case was discussed with Dr. Gonzales. The abdomen was ultrasonographically surveyed. An appropriate pocket of fluid was identified in the right lower quadrant of the abdomen. The skin was prepped with chlorhexidine and sterile field established. 2% lidocaine was used for local anesthetic. Using ultrasound guidance, the peritoneal cavity was accessed with a 5-Albanian paracentesis needle/catheter system. The trocar was removed. A total of 950 ml of cloudy dark yellow colored fluid was removed from the peritoneal cavity. A sample was sent to the lab for diagnostic purposes. The catheter was removed and a sterile dressing was applied. The procedure was well tolerated. The patient was transported back to the ICU for continued monitoring. IMPRESSION: Successful ultrasound guided paracentesis with right lower quadrant access site. Surgical Findings: None Complications Complications: No
[2024-06-09] MEDS: Lidocaine 2% (20 ml mdv) 20 ML Vial INFILT (13:52)
[2024-06-09 14:26] LABS: Cytology, Body Fluid / CSF SEE PATHOLOGY REPORT; Pathologist Comment/Body Fluid May follow
[2024-06-09 14:47] LABS: Body Fluid Mononuclear WBC # 0.125 10^3/uL; Body Fluid Mononuclear WBC % 94.7 %; Body Fluid Polynuclear WBC # 0.007 10^3/uL; Body Fluid Polynuclear WBC % 5.3 %; Body Fluid Total Cells Counted 0.188 10^3/ul; Red Cell Count/Body Fluid 0.004 10^6/ul; White Blood Count/Body Fluid 0.132 10^3/uL
[2024-06-09 14:50] LABS: Appearance/Body Fluid CLEAR; Auto B Fluid Analyzer BKGD Ct COUNTS W/IN LIMITS (W/IN LIMITS); Color/Body Fluid YELLOW; Source- Body Fluid PARACENTESIS
--- NOTE | 2024-06-09 14:53 | CASEMGMT ---
Updated [facility] that pt will not dc today. Paracentesis postponed at this time.
[2024-06-09 15:26] LABS: Body Fluid QC Type(s) BF2; Lymphocytes 30 %; Macrophages 63 %; Monocytes 6 %; Neutrophil (Segs) 1 %
[2024-06-09 16:16] LABS: Glucose, Body Fluid 153 mg/dL (40-70)
[2024-06-09] MEDS: Insulin Lispro 100 UNIT/ML INSULN.PEN SC ×2 (16:30→21:00)
[2024-06-09 16:52] LABS: Bedside Glucose 158 mg/dL (74-106)
[2024-06-09] MEDS: Metoprolol(XL)Succ 25 MG Tablet PO (18:51)
[2024-06-09] MEDS: Metoprolol Tartrate 5 MG/5 ML Vial IV (18:52)
[2024-06-09 21:23] LABS: Bedside Glucose 177 mg/dL (74-106)
--- NOTE | 2024-06-09 23:16 | PCM.HOSP.N ---
Hospitalist Note Patient noting concerns with persistent nausea. Using zofran already, will add 2nd line. Also concerned as no recent BM but will defer adding agent given recent GI bleed component. also reporting restlessness and asking for agent to assist in him relaxing. Will dose with low dose seroquel x 1.
[2024-06-09] MEDS: QUEtiapine 25 MG Tablet PO (23:28)
[2024-06-09] MEDS: 0.9% Saline Lock 10 ML Syringe IV (23:28)
[2024-06-09] MEDS: proCHLORPERazine 10 MG/2 ML Vial IV (23:28)
[2024-06-10] VITALS (14 sets, daily range): BP systolic 79–103; BP diastolic 49–71; PULSE 57–107; RESP 15–21; TEMP 36.3–36.8; O2SAT 91–100; BMI 29.6
[2024-06-10 03:56] LABS: Absolute Lymphocyte Count 0.33 X10^3/uL (0.83-4.51); Absolute Neutrophil Count 4.5 X10^3/uL (2.0-7.7); Basophil# 0.02 X10^3/uL; Basophil% 0.3 % (0-1); Eosinophil# 0.01 X10^3/uL; Eosinophils% 0.2 % (0-5); Hematocrit 23.8 % (40-54); Hemoglobin 7.7 g/dL (13.0-16.5); Lymphocyte # 0.33 X10^3/ul (0.83-4.51); Lymphocyte % 5.4 % (19-41); Mean Corp Hgb Conc 32.4 g/dL (32-36); Mean Corpuscular Hgb 25.8 pg (27.0-32.0); Mean Corpuscular Volume 79.6 fL (80-94); Mean Platelet Vol. 9.9 fl (6.2-12.0); Monocyte# 1.23 X10^3/uL; Monocyte% 20.1 % (0-10); Neutrophil # 4.49 X10^3/uL (2.7-7.7); Neutrophil % 73.3 % (47-70); POSITIVE DIFFERENTIAL YES; Platelet Count 125 K/mm3 (150-450); RBC Distribution Width CV 19.1 % (11.6-14.6); RBC Distribution Width SD 54.2 fl (35.1-43.9); Red Blood Count 2.99 M/mm3 (4.6-6.2); White Blood Count 6.1 K/mm3 (4.4-11.0)
[2024-06-10 04:04] LABS: International Normalized Ratio 2.1; Prothrombin Time (Protime)PT. 23.9 SECONDS (11.7-14.9)
[2024-06-10 04:50] LABS: ALB/GLOB Ratio 1.3 RATIO (0.9-2.4); AST(SGOT) 326 U/L (<=37); Alanine Aminotransfer ALT/SGPT 376 U/L (<=46); Albumin, Serum 3.1 g/dL (3.4-4.8); Alkaline Phosphatase 126 U/L (40-129); Anion Gap 13 (5-15); BUN 56 mg/dL (4-19); BUN/Creat Ratio 25.2 RATIO (10-20); Bilirubin, Direct 1.06 mg/dL (0.00-0.30); Calcium,Total 8.4 mg/dL (7.6-11.0); Carbon Dioxide 19.5 mmol/L (21.0-32.0); Chloride 100 mmol/L (98-108); Creatinine, Serum 2.23 mg/dL (0.70-1.20); EST Glomerular Filtration Rate 31 (>60); Estimated Creatinine Clearance 29.15 ml/min (50-250); Globulin 2.5 g/dL (2.2-4.2); Glucose 152 mg/dL (70-99); Potassium 4.2 mmol/L (3.3-5.1); Protein, Total 5.6 g/dL (5.9-8.4); Sodium Level 132 mmol/L (133-145); Total Bilirubin 1.53 mg/dL (0.00-1.30)
[2024-06-10] MEDS: Sucralfate 1 GM Tablet PO ×4 (06:01→21:19)
[2024-06-10] MEDS: 0.9% Saline Lock 10 ML Syringe IV ×3 (06:01→21:20)
[2024-06-10] MEDS: Na Biphos/Potassium Phosphate PACKET 1 PACKET PO (06:01)
--- NOTE | 2024-06-10 08:06 | ECHOLC_ITS ---
Reason For Study Reason For Study: NSVT Procedure This was a limited 2D transthoracic echocardiogram. Contrast injection was performed. Exam performed portable in ICU/CCU. Left Ventricle Moderately dilated left ventricular cavity. Severe global LV systolic dysfunction. Estimated LVEF 5%. Right Ventricle Moderately dilated right ventricle with moderate RV systolic dysfunction. ICD wire noted. Atria There is severe biatrial dilatation. Mitral Valve Moderate (2+) mitral valve insufficiency. Tricuspid Valve Tricuspid valve leaflets tethered with malcoaptation. Severe tricuspid valve regurgitation. RVSP likely underestimated because of wide-open tricuspid valve. Aortic Valve Aortic valve sclerosis with no stenosis. Pulmonic Valve The pulmonic valve is not well visualized. Great Vessels Normal sized aortic root. Pericardium/Pleural No pericardial effusion. Medication Diluted definity 2ml given slow IV push to enhance endocardial definition. MMode/2D Measurements & Calculations LVIDd: 6.0 cm IVSd: 1.1 cm LA dimension: 4.9 cm LVIDs: 4.9 cm LVPWd: 0.90 cm RVDd: 5.2 cm FS: 17.4 % LAV(MOD-sp4): 57.6 ml LVAd ap4: 44.9 cm2 SV(MOD-sp4): 7.0 ml LVLd ap4: 9.2 cm SI(MOD-sp4): 3.7 ml/m2 EDV(MOD-sp4): 183.7 ml EDV(sp4-el): 185.5 ml LVAs ap4: 44.4 cm2 LVLs ap4: 9.4 cm ESV(MOD-sp4): 176.7 ml ESV(sp4-el): 178.1 ml EF(MOD-sp4): 3.8 % EF(sp4-el): 4.0 % SV(sp4-el): 7.4 ml LA A4 area: 19.8 cm2 LA dimension(2D): 4.8 cm RA A4 area: 29.5 cm2 Doppler Measurements & Calculations MR max rachel: 344.2 cm/sec TR max rachel: 212.2 cm/sec MR max P.4 mmHg TR max P.0 mmHg MR mean rachel: 239.1 cm/sec MR mean P.9 mmHg MR VTI: 95.5 cm ECHO/Echo Limited w/Contrast Interpretation Summary Moderately dilated left ventricular cavity. Severe global LV systolic dysfuncti on. Estimated LVEF 5%. Moderately dilated right ventricle with moderate RV systolic dysfunction. ICD w lita noted. Moderate (2+) mitral valve insufficiency. Aortic valve sclerosis with no stenosis. Tricuspid valve leaflets tethered with malcoaptation. Severe tricuspid valve re gurgitation. RVSP likely underestimated because of wide-open tricuspid valve. Ordering Physician: Carter Fleming Performed By: Waldemar Chaney RCS
--- NOTE | 2024-06-10 08:07 | PN.HOSP_ITS ---
Reason for Visit Reason for Visit: Diagnoses Anemia, unspecified (06/06/24) Overweight (06/06/24) Acidosis, unspecified (06/06/24) Hyperkalemia (06/06/24) Ischemic cardiomyopathy (06/06/24) Alcoholic cirrhosis of liver without ascites (06/06/24) Gastrointestinal hemorrhage, unspecified (06/06/24) Acute kidney failure, unspecified (06/06/24) Chronic kidney disease, stage 3b (06/06/24) Other ascites (06/06/24) Elevation of levels of liver transaminase levels (06/06/24) Poisoning by anticoagulants, accidental (unintentional), initial encounter (06/06/24) Adverse effect of unspecified drugs, medicaments and biological substances, initial encounter (06/06/24) Objective Data Objective Data Vital Signs: Vital Signs Temp Pulse Resp BP Pulse Ox O2 Del Method O2 Flow Rate 97.5 F L 78 15 103/64 98 Room Air 2 06/10/24 06:00 06/10/24 06:00 06/10/24 06:00 06/10/24 06:00 06/10/24 06:00 06/10/24 06:00 06/09/24 07:45 Oxygen Flow Rate (L/min) 2 Oxygen Delivery Method Room Air Weight: 177 lb 11.081 oz Body Mass Index (BMI) 29.6 Intake & Output: Intake and Output for Last 24 Hours 06/08/24 06/09/24 06/10/24 23:59 23:59 23:59 Intake Total 1254.16 / 1254.16 1460 / 1460 60 / 60 Output Total 960 / 960 3200 / 3200 100 / 100 Balance 294.16 / 294.16 -1740 / -1740 -40 / -40 Lab / Micro Data 06/10/24 03:32 06/10/24 03:32 Labs: Laboratory Results - last 24 hr 06/09/24 08:22: POC Glucose 121 H 06/09/24 10:23: WBC 5.6, RBC 3.05 L, Hgb 7.9 L, Hct 24.4 L, MCV 80.0, MCH 25.9 L , MCHC 32.4, RDW Std Deviation 54.8 H, RDW Coeff of Ambrosio 19.0 H, Plt Count 118 L, MPV 9.1, Immature Gran % (Auto) 0.400, Neut % (Auto) 80.4 H, Lymph % (Auto) 5.7 L, [place] % (Auto) 12.9 H, Eos % (Auto) 0.4, Baso % (Auto) 0.2, Absolute Neuts (auto) 4.5, Absolute Lymphs (auto) 0.32 L, Nucleated RBC % 0.4, PT 23.8 H, INR 2.1, APTT 46.4 H 06/09/24 11:45: POC Glucose 142 H 06/09/24 16:26: POC Glucose 158 H 06/09/24 20:59: POC Glucose 177 H 06/09/24 : Fluid Source PARACENTESIS, Fluid Color YELLOW, Fluid Appearance CLEAR, Fluid WBC 0.132, Fluid RBC 0.004, Fluid Tot Cell Count 0.188, Fld Polynuclear WBCs # 0.007, Fld Polynuclear WBCs % 5.3, Fluid Mononuclear WBCs 0.125, Fld Mononuclear WBCs % 94.7, Fluid Neutrophils 1, Fluid Lymphocytes 30, Fluid Monocytes 6, Fluid Macrophages 63, Fl Pathologist Comment May follow, F luid Glucose 153 H, Fluid Comment 2 SEE COMMENT 06/10/24 03:32: WBC 6.1, RBC 2.99 L, Hgb 7.7 L, Hct 23.8 L, MCV 79.6 L, MCH 25.8 L, MCHC 32.4, RDW Std Deviation 54.2 H, RDW Coeff of Ambrosio 19.1 H, Plt Count 125 L , MPV 9.9, Immature Gran % (Auto) 0.700, Neut % (Auto) 73.3 H, Lymph % (Auto) 5.4 L, [place] % (Auto) 20.1 H, Eos % (Auto) 0.2, Baso % (Auto) 0.3, Absolute Neuts (auto) 4.5, Absolute Lymphs (auto) 0.33 L, Nucleated RBC % 1.0, PT 23.9 H, INR 2.1, Sodium 132 L, Potassium 4.2, Chloride 100, Carbon Dioxide 19.5 L, Anion Gap 13, BUN 56 H, Creatinine 2.23 H, Estim Creat Clear Calc 29.15 L, Est GFR (MDRD) Non-Af 31 L, BUN/Creatinine Ratio 25.2 H, Glucose 152 H, Calcium 8.4, Total Bilirubin 1.53 H, Direct Bilirubin 1.06 H, AST 326 H, ALT 376 H, Alkaline Phosphatase 126, Total Protein 5.6 L, Albumin 3.1 L, Globulin 2.5, Albumin/Globulin Ratio 1.3 Micro: Microbiology 06/06/24 18:30 Stool Stool Occult Blood (TYRON) - Final Occult Blood Positive Radiography Diagnostic Testing: Radiology Impression Paracentesis Ultrasound 06/09/24 09:48 IMPRESSION: Successful paracentesis. Reading Location: [facility] Physical Exam Narrative Seen and examined. Patient had paracentesis about 950 mL yesterday afternoon and then in the evening around 6 to 6:30 PM, he had episodes of wide-complex tachycardia. Twelve-lead EKG was done and reviewed with the commercial tire service technician Dr. Butler. Noise PACs on the monitor on the EKG and patient was asymptomatic in regards to chest pain pressure or tightness or shortness of breath/near syncope or syncope. It was thought he has supraventricular aberrancies. Pacemaker interrogation was done. Overnight patient also had nausea. Metoclopramide was added. Seroquel was also given as tranquilizer. Patient was admitted with abdominal distention for about 2 to 3 weeks. No abdominal pain. Had 1 episode of dark red vomiting/hematemesis and 3-4 episodes of melena in the last 1 day. Physical exam General: Alert, Oriented x3, Cooperative HEENT: Atraumatic, PERRLA, EOMI, Normocephalic Oral: No Gingival or Mucosal Lesions/ Ulcerations Neck: Supple, No JVD, Negative Carotid Bruits Chest wall/Lungs: Air entry diminished in bilateral lung bases. No crepitation/rhonchi Cardiovascular: Regular rate, Regular Rhythm, Normal S1, Normal S2, systolic murmur Abdomen: Bowel Sounds Present, nontender, soft mild abdominal distention, shifting dullness present, ascites : No dysuria. No renal angle tenderness. No suprapubic tenderness. Extremities: Bilateral 2+ below thigh pitting edema, Capillary Refill Less than 3 Seconds Skin: No rashes, No breakdown Musculoskeletal: No Tenderness to Palpation of Joints or Extremities Neurological: Cranial nerves II-XII grossly intact, DTR 2+/4. No acute focal neurological deficit. Psych/Mental Status: Flat affect Assessment & Plan Assessment/Plan (1) Acute upper GI bleed: (2) Anemia: QUALIFIERS: Anemia type: unspecified type Qualified Code(s): D 64.9 - Anemia, unspecified (3) Warfarin toxicity: QUALIFIERS: Encounter type: initial encounter Injury intent: a ccidental or unintentional Qualified Code(s): T45.511A - Poisoning by anticoagulants, accidental (unintentional), initial encounter (4) MYRIAM (acute kidney injury): (5) CKD stage 3b, GFR 30-44 ml/min: (6) Hyperkalemia: (7) Lactic acidosis: (8) Cirrhosis: QUALIFIERS: Ascites presence: without ascites Hepatic cirrhosis type: alcoholic cirrhosis Qualified Code(s): K70.30 - Alcoholic cirrhosis of liver without ascites (9) Cardiomyopathy, ischemic: PLAN: Plan 74-year-old gentleman was admitted with 3 dark stool, bloating, 1 dark-colored vomiting along with generalized weakness and mild shortness of breath,started 24 hours ago. The patient is stated he is not taking Coumadin for last 3 days 1. Upper GI bleed complicated with acute blood loss anemia on chronic anemia exacerbated by warfarin and Plavix: Patient is admitted in ICU. He was found severe anemia H&H 6.4/20% x 2. Baseline hemoglobin stays between 9 to 10 g% last 1 year. Had 1 unit of PRBC transfusion. GI is consulted. NPO. Pantoprazole IV drip EGD on 06/07/2024: Impressions : - Esophageal ulcer with stigmata of recent bleeding. - Portal hypertensive gastropathy. - Non-bleeding duodenal ulcers with no stigmata of bleeding. - No specimens collected. 06/08: Patient on PPI drip. Carafate was added 1 g 4 times daily for 2-week . Change PPI drip to pantoprazole 40 mg IV every 12 hourly. H&H 7.6/23.1%. IV iron ordered. 06/09: H&H 7.5/23%. Platelet count 113. Continue PPI. Severe anemia, ferritin 41, iron saturation 5%. Serum iron 15. IV iron infusion ordered 06/10: Yesterday patient had some nausea and a cough. Metoclopramide ordered patient asymptomatic now. H&H 7.7/23.8%. Platelet count 125K. Patient also complained of constipation did not move bowel since Friday. Senna S and MiraLAX ordered. Zofran discontinued 2. Warfarin toxicity: INR was 1 more than 19.5. IV vitamin K was given. Repeat INR 4.2 06/09: INR is 2.1. 06/10 INR 2.1. Warfarin resumed 3. MYRIAM on CKD stage IIIb: Patient on loop diuretic. With IV fluid restriction. Admitting BUNs/creatinine 99/3.0. Creatinine is around 1.85-2.04. 06/08: Creatinine 2.29 today. BUN 80. Phosphorus low 2.4. 06/09: Creatinine 1.91. K3.5 06/10: Creatinine went up to 2.23. Probably from paracentesis/fluid safe. Avoid nephrotoxic medication. 4. Moderate ascites, bilateral pleural effusion and bilateral lower extremity edema: CT abdomen medially reviewed shows moderate right pleural effusion, small left pleural effusion, moderate ascites. Liver contour does not look nodular but small in size. Will need ultrasound-guided paracentesis. Kidneys unremarkable. Right upper quadrant sonogram ordered CT Abdo also reported spleen pancreas gallbladder, adrenals normal. Lactic acid elevated probably due to intravascular volume deficit/hypovolemia complicated with metformin. 06/08: Plan for ultrasound-guided paracentesis 06/09: Ultrasound-guided paracentesis was postponed for today. 06/10: Had 950 mL paracentesis yesterday. Total WBC count 132, neutrophils 7, 5.3% mononuclear 94% therefore SBP ruled out. 5 Mild Hyperkalemia of 5.2 mmol/L and mild Hyponatremia of 130 mmol/L: Repeat sodium 132. Serum potassium repeat normal. 6. Possible cirrhosis from cardiac/alcoholic cirrhosis: Patient liver chemistry was normal in May 11, 2024. Admitted with ALT 359, AST 486. Direct bilirubin and total bilirubin normal. Serum albumin low normal, 3.6 06/09: Abdominal ultrasound shows ascites and fatty infiltration of the liver. Liver size 14.7. CT abdomen additionally reviewed and looks liver towards the smaller side with thrombocytopenia, hypoalbuminemia. EGD shows PHG therefore high suspicion of cirrhosis. Patient also has EF of 10 to 15% with 2+ TR, PASP is 50 mmHg therefore probability of cardiac cirrhosis from pulmonary hypertension/TR 7. CAD status post cardiac, chronic severe systolic heart failure with LVEF ~15% (02/2024) with AICD (2015) in the setting of previous cardiac arrest due to ventricular fibrillation - Watch carefully for signs of volume overload. Quit smoking in 2014. Patient also has history of CVA and peripheral arterial 3/6: Patient had episode of wide-complex tachycardia and thought to be supraventricular aberrancy. Discussed with the commercial tire service technician and reviewed the EKG. Pacemaker interrogation was done. It shows patient patient had last NSVT on April 20 but none since then. Limited echo ordered. Patient metoprolol resumed. Washer Repairman consulted. Currently mild sinus tachycardia about 107 beats noted. Blood pressure systolic in 90s 8. Overweight; BMI of 29.9 this admission -may be fluid weight 9. Essential Hypertension - Hold scheduled oral antihypertensives in light of volume depleted state and MYRIAM. Hydralazine as needed 10. Hyperlipidemia - Hold atorvastatin until patient can tolerate oral intake. 11. Hypothyroidism - TSH 11.8. Free T4 1.1 Normal. Free T3 low. Slightly increase the dose of levothyroxine 12. DM-2; on metformin - Keep NPO. Accu-Chek before meals and at bedtime with Humalog sliding scale coverage and hypoglycemia protocol. DVT prophylaxis - SCD's Charges/Coding Visit Charges Inpatient E&M: 16246 Subs Hosp L3
[2024-06-10 08:19] LABS: Bedside Glucose 138 mg/dL (74-106)
[2024-06-10] MEDS: Pantoprazole Sodium 40 MG in 0.9% Normal Saline (100mL MB+) 100 ML 330 MG IV ×2 (09:44→21:18)
[2024-06-10] MEDS: Polyethylene Glycol 3350 17 GM PACKET PO ×2 (09:57→21:19)
[2024-06-10] MEDS: Senna/Docusate Sodium 1 Tablet 2 TABLET PO ×2 (09:58→21:19)
[2024-06-10 10:53] LABS: Protein, Body Fluid 2.4 g/dL (Not Establ.)
[2024-06-10] MEDS: Levothyroxine 50 MCG Tablet PO (11:10)
[2024-06-10 11:34] LABS: Bedside Glucose 148 mg/dL (74-106)
[2024-06-10] MEDS: Metoprolol(XL)Succ 25 MG Tablet PO (12:07)
[2024-06-10 16:42] LABS: Bedside Glucose 138 mg/dL (74-106)
[2024-06-10] MEDS: Atorvastatin Calcium 80 MG Tablet PO (21:18)
[2024-06-10 21:44] LABS: Bedside Glucose 144 mg/dL (74-106)
[2024-06-11] VITALS (8 sets, daily range): BP systolic 79–102; BP diastolic 53–68; PULSE 63–105; RESP 14–20; TEMP 36.4–36.7; O2SAT 92–100; BMI 29.7
[2024-06-11] MEDS: Levothyroxine 50 MCG Tablet PO (05:34)
--- NOTE | 2024-06-11 05:56 | NURSING ---
Hand off report to Tejas Esteban RN. Pt updated on trasfer to PCU unit this AM. Verbalized understanding @ this time
[2024-06-11 06:11] LABS: Absolute Neutrophil Count 7.5 X10^3/uL (2.0-7.7); Basophil# 0.01 X10^3/uL; Basophil% 0.1 % (0-1); Eosinophil# 0.02 X10^3/uL; Eosinophils% 0.2 % (0-5); Hematocrit 25.6 % (40-54); Hemoglobin 8.3 g/dL (13.0-16.5); Lymphocyte % 5.3 % (19-41); Mean Corp Hgb Conc 32.4 g/dL (32-36); Mean Corpuscular Hgb 25.9 pg (27.0-32.0); Mean Platelet Vol. 9.8 fl (6.2-12.0); Monocyte# 1.36 X10^3/uL; Monocyte% 14.4 % (0-10); NRBC Flagged by Analyzer 1.3 % (0-5); Neutrophil # 7.51 X10^3/uL (2.7-7.7); Neutrophil % 79.4 % (47-70); POSITIVE DIFFERENTIAL YES; Platelet Count 158 K/mm3 (150-450); RBC Distribution Width CV 19.6 % (11.6-14.6); RBC Distribution Width SD 53.8 fl (35.1-43.9); White Blood Count 9.5 K/mm3 (4.4-11.0)
[2024-06-11 06:30] LABS: Prothrombin Time (Protime)PT. 31.4 SECONDS (11.7-14.9)
[2024-06-11] MEDS: Sucralfate 1 GM Tablet PO ×2 (07:38→12:01)
[2024-06-11 08:13] LABS: Bedside Glucose 135 mg/dL (74-106)
--- NOTE | 2024-06-11 09:36 | DCINST_ITS ---
Discharge Instructions Diet Discharge Diet: 1800 Calorie Control Diet, 6 Cup Fluid Restriction and 2000 mg Sodium Diet DC O2, CPAP, BIPAP needs Home O2 Discharge instructions: No Dressing / Incision Discharge Activity: Return to Normal Activity Weight Bearing Status: Weight bearing as tolerated Dressing / Incision Call your doctor if you observe: Fever of 101 or Higher, Coldness, Increased Pain, Numbness or Tingling, Change in Color, Inability to urinate, Inability to have a bowel movement, Shortness of breath, Dizziness, Fainting spells, Swelling in the ankles, Chest pain, Prolonged hiccupping, Increased palpitations (irregular heartbeat) and Calf discomfort Follow Up Care When: IN 2 WEEKS Test Results: Test results from this visit will be discussed in further detail at your follow- up appointment, if applicable. Discharge Plan Admission Admit Date/Time: 06/06/24 20:54 Primary Reason for Your Visit: Upper GI bleed, cardiac cirrhosis severe heart failure. Attending Provider: Carter Fleming Primary Care Provider: Sherice Campos Consulting Providers: Dennis Rodriguez Discharge Orders/Prescriptions Prescriptions: New sucralfate 1 gram Tablet 1 g PO 1HR_ACHS 30 Days Qty: 120 0RF Continued cholecalciferol (vitamin D3) 50 mcg (2,000 unit) tablet 4,000 unit PO QDAY levothyroxine 25 mcg tablet 50 mcg PO QDAY multivitamin with folic acid 1 TABLET tablet 1 tab PO DAILYCM Qty: 0 0RF Patient Comments: vitamin atorvastatin 80 MG tablet 80 mg PO QHS Qty: 30 0RF Patient Comments: lowers cholesterol metformin 850 mg tablet 850 mg PO BIDCM Patient Comments: diabetes medication furosemide [Lasix] 40 mg tablet 40 mg PO QDAY Qty: 90 0RF spironolactone 25 mg tablet 25 mg PO QDAY Qty: 90 3RF Changed metoprolol succinate 25 MG tablet 25 mg PO LUNCH 30 Days Qty: 30 0RF Patient Comments: lowers blood pressure Held warfarin 6 mg tablet 5 mg PO 5XW Hold Instructions: Hold for INR more than 2.0. Protocol: Dose Management Protocol Text: Patient Instructed to take: warfarin 2 mg (2 Tabs) on , WE warfarin 6 mg (1 Tab) on [place], [place], TH, FR, SA Patient Comments: every other day, take 5mg. on the opposite day, take 4mg. pt last took dose on 06/04/24. Rx Instructions: Managed by Dr. Campos clopidogrel 75 MG tablet 75 mg PO DAILY Qty: 30 0RF Hold Instructions: Hold for 5 days Patient Comments: blood thinner Discontinued amlodipine 2.5 mg tablet 2.5 mg PO DAILY Qty: 90 3RF Referrals / Follow Up: Juancho Quintanilla MD [Med Staff - Active Staff] - Within 1 Month Sherice Campos DO [Primary Care Provider] - Elissa Salomon PA [Med Staff - Adv Practice Prof] - Within 2 Weeks (For GI bleed and cirrhosis) Disposition Disposition (needs filled in before D/C Order can be placed): Home Health Service
[2024-06-11] MEDS: Pantoprazole Sodium 40 MG in 0.9% Normal Saline (100mL MB+) 100 ML 330 MG IV (10:33)
[2024-06-11] MEDS: 0.9% Saline Lock 10 ML Syringe IV (10:34)
--- NOTE | 2024-06-11 10:38 | PCM.DC.SUM ---
Providers Date of Admission: 06/06/24 Date of Discharge: 06/11/24 Primary Care Physician: Dr. Sherice Campos, DO Consultations 06/06/24 21:22 Consult: Gastroenterology Routine Consulting Provider: [facility] Reason for Consult: UGIB with coffee-ground emesis and melanotic stools with INR > 19.5 POA. EMERGENT Consult: No MD Notified: Yes Date Notified: 06/06/24 Time Notified: 20:56 Method of Notification: ED Physician Initiated Reason For Visit: UGIB WITH COFFEE GROUND EMESIS & MELENA WITH Diagnosis Discharge Diagnosis (1) Acute upper GI bleed: Status: Acute Code(s): K92.2 - Gastrointestinal hemorrhage, unspecified (2) Anemia: Status: Acute Code(s): D64.9 - Anemia, unspecified Qualifiers: Anemia type: unspecified type Qualified Code(s): D64.9 - Anemia, unspecified (3) Warfarin toxicity: Status: Acute Code(s): T45.511A - Poisoning by anticoagulants, accidental (unintentional), initial encounter Qualifiers: Encounter type: initial encounter Injury intent: accidental or unintentional Qualified Code(s): T45.511A - Poisoning by anticoagulants, accidental (unintentional), initial encounter (4) MYRIAM (acute kidney injury): Status: Acute Code(s): N17.9 - Acute kidney failure, unspecified (5) CKD stage 3b, GFR 30-44 ml/min: Status: Acute Code(s): N18.32 - Chronic kidney disease, stage 3b (6) Hyperkalemia: Status: Acute Code(s): E87.5 - Hyperkalemia (7) Lactic acidosis: Status: Acute Code(s): E87.20 - Acidosis, unspecified (8) Cirrhosis: Status: Acute Code(s): K74.60 - Unspecified cirrhosis of liver Qualifiers: Ascites presence: without ascites Hepatic cirrhosis type: alcoholic cirrhosis Qualified Code(s): K70.30 - Alcoholic cirrhosis of liver without ascites (9) Cardiomyopathy, ischemic: Status: Chronic Code(s): I25.5 - Ischemic cardiomyopathy Plan 74-year-old gentleman was admitted with 3 dark stool, bloating, 1 dark-colored vomiting along with generalized weakness and mild shortness of breath,started 24 hours ago. The patient is stated he is not taking Coumadin for last 3 days 1. Upper GI bleed complicated with acute blood loss anemia on chronic anemia exacerbated by warfarin and Plavix: Patient is admitted in ICU. He was found severe anemia H&H 6.4/20% x 2. Baseline hemoglobin stays between 9 to 10 g% last 1 year. Had 1 unit of PRBC transfusion. GI is consulted. NPO. Pantoprazole IV drip EGD on 06/07/2024: Impressions : - Esophageal ulcer with stigmata of recent bleeding. - Portal hypertensive gastropathy. - Non-bleeding duodenal ulcers with no stigmata of bleeding. - No specimens collected. 06/08: Patient on PPI drip. Carafate was added 1 g 4 times daily for 2-week . Change PPI drip to pantoprazole 40 mg IV every 12 hourly. H&H 7.6/23.1%. IV iron ordered. 06/09: H&H 7.5/23%. Platelet count 113. Continue PPI. Severe anemia, ferritin 41, iron saturation 5%. Serum iron 15. IV iron infusion ordered 06/10: Yesterday patient had some nausea and a cough. Metoclopramide ordered patient asymptomatic now. H&H 7.7/23.8%. Platelet count 125K. Patient also complained of constipation did not move bowel since Friday. Senna S and MiraLAX ordered. Zofran discontinued 06/11: Nausea and vomiting well-controlled. Advised senna S and Metamucil, OT as needed for constipation. Follow-up in GI office in 2 weeks. 2. Warfarin toxicity: INR was 1 more than 19.5. IV vitamin K was given. Repeat INR 4.2 06/09: INR is 2.1. 06/10 INR 2.1. Warfarin resumed 3. MYRIAM on CKD stage IIIb: Patient on loop diuretic. With IV fluid restriction. Admitting BUNs/creatinine 99/3.0. Creatinine is around 1.85-2.04. 06/08: Creatinine 2.29 today. BUN 80. Phosphorus low 2.4. 06/09: Creatinine 1.91. K3.5 06/10: Creatinine went up to 2.23. Probably from paracentesis/fluid safe. Avoid nephrotoxic medication. 06/11: Creatinine is on baseline. Patient on furosemide and spironolactone for severe heart failure. Follow-up with nephrology. 4. Moderate ascites, bilateral pleural effusion and bilateral lower extremity edema: CT abdomen medially reviewed shows moderate right pleural effusion, small left pleural effusion, moderate ascites. Liver contour does not look nodular but small in size. Will need ultrasound-guided paracentesis. Kidneys unremarkable. Right upper quadrant sonogram ordered CT Abdo also reported spleen pancreas gallbladder, adrenals normal. Lactic acid elevated probably due to intravascular volume deficit/hypovolemia complicated with metformin. 06/08: Plan for ultrasound-guided paracentesis 06/09: Ultrasound-guided paracentesis was postponed for today. 06/10: Had 950 mL paracentesis yesterday. Total WBC count 132, neutrophils 7, 5.3% mononuclear 94% therefore SBP ruled out. 06/11: Fluid total protein 2.4. Glucose 153. Fluid albumin is canceled, region unclear 5 Mild Hyperkalemia of 5.2 mmol/L and mild Hyponatremia of 130 mmol/L: Repeat sodium 132. Serum potassium repeat normal. 6. Possible cirrhosis from cardiac/alcoholic cirrhosis: Patient liver chemistry was normal in May 11, 2024. Admitted with ALT 359, AST 486. Direct bilirubin and total bilirubin normal. Serum albumin low normal, 3.6 06/09: Abdominal ultrasound shows ascites and fatty infiltration of the liver. Liver size 14.7. CT abdomen additionally reviewed and looks liver towards the smaller side with thrombocytopenia, hypoalbuminemia. EGD shows PHG therefore high suspicion of cirrhosis. Patient also has EF of 10 to 15% with 2+ TR, PASP is 50 mmHg therefore probability of cardiac cirrhosis from pulmonary hypertension/TR 06/10: Advised follow-up in GI office 7. CAD status post cardiac, chronic severe systolic heart failure with LVEF ~15% (02/2024) with AICD (2015) in the setting of previous cardiac arrest due to ventricular fibrillation - Watch carefully for signs of volume overload. Quit smoking in 2014. Patient also has history of CVA and peripheral arterial 06/10: Patient had episode of wide-complex tachycardia and thought to be supraventricular aberrancy. Discussed with the vice president for instruction and reviewed the EKG. Pacemaker interrogation was done. It shows patient patient had last NSVT on April 20 but none since then. Limited echo ordered. Patient metoprolol resumed. Product Development Engineer consulted. Currently mild sinus tachycardia about 107 beats noted. Blood pressure systolic in 90s 06/11: Discussed with the vice president for instruction. Patient did not had any new arrhythmia event on this present admission. Advised follow-up in [place] cardiology Dr. Quintanilla. 8. Overweight; BMI of 29.9 this admission -may be fluid weight 9. Essential Hypertension - Hold scheduled oral antihypertensives in light of volume depleted state and MYRIAM. Hydralazine as needed 10. Hyperlipidemia - Hold atorvastatin until patient can tolerate oral intake. 11. Hypothyroidism - TSH 11.8. Free T4 1.1 Normal. Free T3 low. Slightly increase the dose of levothyroxine 12. DM-2; on metformin - Keep NPO. Accu-Chek before meals and at bedtime with Humalog sliding scale coverage and hypoglycemia protocol. DVT prophylaxis - SCD's Patient is discharged home with home health healthcare economics manager. Palliative/hospice care was called and they can follow it up at home. Discharge medication reconciliation done. Discharge follow-up instructions completed. Discharge process discussed with the patient and all questions were answered to patient's satisfaction. Follow with PCP in 1 to 2 weeks Total time spent, exact 35 minutes on discharge meds reconciliation, examination, coordination of care with nurses and ancillary staff, review of imaging and blood test and discussion with the patient on follow-up instructions. Medications at Discharge Home Medications atorvastatin 80 mg tablet 80 mg PO QHS cholesterol #30 tabs 06/24/14 clopidogrel 75 mg tablet 75 mg PO DAILY antiplatelet #30 tabs 06/24/14 Held on 06/11/24. Instructions: Hold for 5 days multivitamin with folic acid 400 mcg tablet 1 tab PO DAILYCM supplement #0 tabs 06/24/14 cholecalciferol (vitamin D3) 50 mcg (2,000 unit) tablet 4,000 unit PO QDAY supplement 01/27/20 metformin 850 mg tablet 850 mg PO BIDCM diabetes 01/27/20 warfarin 6 mg tablet 5 mg PO 5XW blood thinner 07/19/20 Held on 06/11/24. Instructions: Hold for INR more than 2.0. levothyroxine 25 mcg tablet 50 mcg PO QDAY thyroid 09/19/21 spironolactone 25 mg tablet 25 mg PO QDAY water pill #90 tabs 03/12/24 furosemide 40 mg tablet (Lasix) 40 mg PO QDAY water pill #90 tabs 05/13/24 metoprolol succinate 25 mg tablet,extended release 24 hr 25 mg PO LUNCH heart/BP 30 days #30 tabs 06/11/24 sucralfate 1 gram tablet 1 g PO 1HR_ACHS 30 days #120 tabs 06/11/24 Physical Exam Narrative Seen and examined. Patient was transferred to PCU yesterday. No nausea or vomiting. Patient was admitted with abdominal distention for about 2 to 3 weeks. No abdominal pain. Physical exam General: Alert, Oriented x3, Cooperative HEENT: Atraumatic, PERRLA, EOMI, Normocephalic Oral: No Gingival or Mucosal Lesions/ Ulcerations Neck: Supple, No JVD, Negative Carotid Bruits Chest wall/Lungs: Air entry diminished in bilateral lung bases. No crepitation/rhonchi Cardiovascular: Regular rate, Regular Rhythm, soft muffled heart sound. Systolic murmur Abdomen: Bowel Sounds Present, nontender, soft mild abdominal distention, shifting dullness present, ascites : No dysuria. No renal angle tenderness. No suprapubic tenderness. Extremities: Bilateral 2+ below thigh pitting edema, Capillary Refill Less than 3 Seconds Skin: No rashes, No breakdown Musculoskeletal: No Tenderness to Palpation of Joints or Extremities Neurological: Cranial nerves II-XII grossly intact, DTR 2+/4. No acute focal neurological deficit. Psych/Mental Status: Flat affect Weight / BMI Weight Weight: 178 lb 12.718 oz Body Mass Index (BMI) 29.7 ABG / Lab / Microbiology Data 06/11/24 06:04 06/10/24 03:32 Laboratory: Laboratory Results - last 24 hr 06/07/24 : Fluid Amylase 33 06/10/24 16:21: POC Glucose 138 H 06/10/24 21:16: POC Glucose 144 H 06/11/24 06:04: WBC 9.5, RBC 3.20 L, Hgb 8.3 L, Hct 25.6 L, MCV 80.0, MCH 25.9 L, MCHC 32.4, RDW Std Deviation 53.8 H, RDW Coeff of Ambrosio 19.6 H, Plt Count 158, MPV 9.8, Immature Gran % (Auto) 0.600, Neut % (Auto) 79.4 H, Lymph % (Auto) 5.3 L, [place] % (Auto) 14.4 H, Eos % (Auto) 0.2, Baso % (Auto) 0.1, Absolute Neuts (auto) 7.5, Absolute Lymphs (auto) 0.50 L, Nucleated RBC % 1.3, PT 31.4 H, INR 3.0 06/11/24 07:37: POC Glucose 135 H 06/11/24 12:04: POC Glucose 183 H Microbiology: Microbiology 06/09/24 Unknown Fluid - Paracentesis (Abd) Gram Stain - Final 06/09/24 Unknown Fluid - Paracentesis (Abd) Body Fluid Culture - Preliminary No growth-Final to follow 06/06/24 18:30 Stool Stool Occult Blood (TYRON) - Final Occult Blood Positive Radiography Diagnostic Testing: Radiology Impression Echocardiogram 06/10/24 08:06 Interpretation Summary Moderately dilated left ventricular cavity. Severe global LV systolic dysfunction. Estimated LVEF 5%. Moderately dilated right ventricle with moderate RV systolic dysfunction. ICD wire noted. Moderate (2+) mitral valve insufficiency. Aortic valve sclerosis with no stenosis. Tricuspid valve leaflets tethered with malcoaptation. Severe tricuspid valve regurgitation. RVSP likely underestimated because of wide-open tricuspid valve. Ordering Physician: Carter Fleming Performed By: Waldemar Chaney RCS D/C Instructions Discharge Diet: 1800 Calorie Control Diet, 6 Cup Fluid Restriction and 2000 mg Sodium Diet Weight Bearing Status: Weight bearing as tolerated Call your doctor if you observe: Fever of 101 or Higher, Coldness, Increased Pain, Numbness or Tingling, Change in Color, Inability to urinate, Inability to have a bowel movement, Shortness of breath, Dizziness, Fainting spells, Swelling in the ankles, Chest pain, Prolonged hiccupping, Increased palpitations (irregular heartbeat) and Calf discomfort DC O2, CPAP, BIPAP Needs Home O2 Discharge instructions: No When: IN 2 WEEKS Meaningful Use Info Meaningful Use Meaningful Use Diagnoses (Choose all that apply): None applicable Ischemic Stroke Statin Dosing Therapy Reference: STATIN DOSE THERAPY REFERENCE: * Patients > 75 years receive moderate or high dose statin therapy. * Patients 75 years or YOUNGER should receive HIGH intensity statin dose unless contraindicated. You will be required to document reason for non-treatment if statin daily dose does not meet guidelines. HIGH DOSE STATIN THERAPY DAILY Atorvastatin > than or = to 40 mg Rosuvastatin > than or = to 20 mg Amlodipine + Atorvastatin > than or = to 2.5/40 mg Ezetimibe + Simvastatin 10/80 mg Simvastatin 80mg Discharge Plan Admission Admit Date/Time: 06/06/24 20:54 Primary Reason for Your Visit: Upper GI bleed, cardiac cirrhosis severe heart failure. Attending Provider: Carter Fleming Primary Care Provider: Sherice Campos Consulting Providers: Dennis Rodriguez Instructions Additional Instructions / Restrictions: Advised [id number] senna S, 2 tablet twice daily and Metamucil 1 tablet twice daily as needed for constipation. Discharge Orders/Prescriptions Prescriptions: New sucralfate 1 gram Tablet 1 g PO 1HR_ACHS 30 Days Qty: 120 0RF Continued cholecalciferol (vitamin D3) 50 mcg (2,000 unit) tablet 4,000 unit PO QDAY levothyroxine 25 mcg tablet 50 mcg PO QDAY multivitamin with folic acid 1 TABLET tablet 1 tab PO DAILYCM Qty: 0 0RF Patient Comments: vitamin atorvastatin 80 MG tablet 80 mg PO QHS Qty: 30 0RF Patient Comments: lowers cholesterol metformin 850 mg tablet 850 mg PO BIDCM Patient Comments: diabetes medication furosemide [Lasix] 40 mg tablet 40 mg PO QDAY Qty: 90 0RF spironolactone 25 mg tablet 25 mg PO QDAY Qty: 90 3RF Changed metoprolol succinate 25 MG tablet 25 mg PO LUNCH 30 Days Qty: 30 0RF Patient Comments: lowers blood pressure Held warfarin 6 mg tablet 5 mg PO 5XW Hold Instructions: Hold for INR more than 2.0. Protocol: Dose Management Protocol Text: Patient Instructed to take: warfarin 2 mg (2 Tabs) on , WE warfarin 6 mg (1 Tab) on , MO, TH, FR, SA Patient Comments: every other day, take 5mg. on the opposite day, take 4mg. pt last took dose on 06/04/24. Rx Instructions: Managed by Dr. Campos clopidogrel 75 MG tablet 75 mg PO DAILY Qty: 30 0RF Hold Instructions: Hold for 5 days Patient Comments: blood thinner Discontinued amlodipine 2.5 mg tablet 2.5 mg PO DAILY Qty: 90 3RF Referrals / Follow Up: Juancho Quintanilla MD [Med Staff - Active Staff] - Within 1 Month Sherice Campos DO [Primary Care Provider] - Elissa Salomon PA [Med Staff - Adv Practice Prof] - Within 2 Weeks (For GI bleed and cirrhosis) Disposition Disposition (needs filled in before D/C Order can be placed): Home Health Service Charges/Coding Visit Charges Inpatient E&M: 22515 Disch Hosp >30min
[2024-06-11 11:08] LABS: Amylase Body Fluid 33 U/L (.)
--- NOTE | 2024-06-11 11:35 | CASEMGMT ---
CASANDRA BARAKAT into pt room to discuss DC plan. Pt in the room sitting at bedside, pt agreeable to discussing DC planning. Pt states he no longer wants [facility] services, states the doctor told me I don't have much time left, I don't think I need that anymore RN YUVAL asked if the patient had thought about Palliative or Hospice services. Pt states yes, he indicated he was interested. states no, she wants [facility] and didn't think hospice would give him his meds anymore, states I'm not ready for you to stop taking medications and next week. CASANDRA BARAKAT suggested a referral be made for consultation so they can discuss what services are provided and get their questions answered. Both and were in agreement. states she will be going to her car to sit for a little but and asked CASANDRA BARAKAT to call with time for consultation. , Frieda, . Denies further questions at this time, pt thanked me for my assistance.
--- NOTE | 2024-06-11 11:42 | CASEMGMT ---
CASANDRA BARAKAT into pt room to discuss DC plan. Pt in the room sitting at bedside, pt agreeable to discussing DC planning. Pt states he no longer wants [facility] services, states the doctor told me I don't have much time left, I don't think I need that anymore RN YUVAL asked if the patient had thought about Palliative or Hospice services. Pt states yes, he indicated he was interested. states no, she wants [facility] and didn't think hospice would give him his meds anymore, states I'm not ready for you to stop taking medications and next week. CASANDRA BARAKAT suggested a referral be made for consultation so they can discuss what services are provided and get their questions answered. Both and were in agreement. states she will be going to her car to sit for a little but and asked CASANDRA BARAKAT to call with time for consultation. , Frieda, . Denies further questions at this time, pt thanked me for my assistance.
--- NOTE | 2024-06-11 11:54 | CASEMGMT ---
Addendum entered by Barbara Dillon 06/11/24 14:32: Social Work [facility] does not have a nurse available today to meet with pt. Meeting has been set for 0930 tomorrow morning. SW met with pt who states he is comfortable returning home today with and meeting with hospice tomorrow. Pt has a walker at home. SW spoke with pt regarding home health and pt is agreeable to proceed with Home Health referral and will then cancel it if he and decide to sign with hospice. RNCM updated on discharge plan. [facility] Original Note: Social Work SW received referral that pt and would like to meet with [facility] for informational meeting prior to discharging home today. SW met with pt and and they are agreeable to hospice referral. Referral made to [facility] and clinical updates faxed. Hospice to reach out pt to set appointment. Physician notified. [facility]
[2024-06-11] MEDS: Insulin Lispro 100 UNIT/ML INSULN.PEN SC (12:05)
[2024-06-11] MEDS: Metoprolol(XL)Succ 25 MG Tablet PO (12:10)
[2024-06-11 12:24] LABS: Bedside Glucose 183 mg/dL (74-106)
--- NOTE | 2024-06-11 12:49 | NURSING ---
Patient refused home O2 eval, verbalized he didn't need oxygen at home.
--- NOTE | 2024-06-11 14:33 | CASEMGMT ---
Discharge Planning Discharge Instructions sent to [facility]. Marla Grant DC Planning Asst.
== END 2024-06-11 16:11 | disposition home health service (06) | DRG 378 ==
LOC: ED 20:04 → ICU 21:31 → PCU 06-11 06:44
PROVIDERS: Family Medicine; Internal Medicine Gastroenterology; Nurse Practitioner; Admitting Provider Internal Medicine; Emergency Provider Emergency Medicine; PCP Internal Medicine; Visit Provider Internal Medicine
PROC: 0DJ08ZZ Inspection of Upper Intestinal Tract, Via Natural or Artificial Opening Endoscopic (ICD-10-PCS; CPT 43235; principal; 2024-06-07 15:55)
DX: K92.2 Gastrointestinal hemorrhage, unspecified (principal); D62 Acute posthemorrhagic anemia; D68.32 Hemorrhagic disorder due to extrinsic circulating anticoagulants; I13.0 Hypertensive heart and chronic kidney disease with heart failure and stage 1 through stage 4 chronic kidney disease, or unspecified chronic kidney disease; K76.6 Portal hypertension; E87.1 Hypo-osmolality and hyponatremia; N17.9 Acute kidney failure, unspecified; I50.22 Chronic systolic (congestive) heart failure; K22.11 Ulcer of esophagus with bleeding; E11.22 Type 2 diabetes mellitus with diabetic chronic kidney disease; N18.32 Chronic kidney disease, stage 3b; E03.9 Hypothyroidism, unspecified; K26.9 Duodenal ulcer, unspecified as acute or chronic, without hemorrhage or perforation; K70.31 Alcoholic cirrhosis of liver with ascites; E78.5 Hyperlipidemia, unspecified; E87.5 Hyperkalemia; I25.10 Atherosclerotic heart disease of native coronary artery without angina pectoris; E11.51 Type 2 diabetes mellitus with diabetic peripheral angiopathy without gangrene; I25.5 Ischemic cardiomyopathy; K76.0 Fatty (change of) liver, not elsewhere classified; I25.2 Old myocardial infarction; E66.3 Overweight; Z68.29 Body mass index [BMI] 29.0-29.9, adult; T45.515A Adverse effect of anticoagulants, initial encounter; Z86.73 Personal history of transient ischemic attack (TIA), and cerebral infarction without residual deficits; Z95.5 Presence of coronary angioplasty implant and graft; Z87.891 Personal history of nicotine dependence; Z79.84 Long term (current) use of oral hypoglycemic drugs; Z79.899 Other long term (current) drug therapy
CPT/HCPCS: 36415; 49083; 71045; 74176; 76705; 80048; 80053; 80076; 81001; 82140; 82150; 82248; 82274; 82607; 82728; 82945; 82962; 83036; 83540; 83550; 83605; 83690; 83735; 84100; 84157; 84439; 84443; 84481; 84484; 85014; 85018; 85025; 85610; 85730; 86850; 86900; 86901; 87070; 87075; 87205; 88108; 88305; 88313; 89050; 93005; 93308; 94762; 97110; 97162; 97166; 99284; P9016; Q9957; A4216; C8924; J2405; J2916